=== PATIENT | male | born 1945 | race Caucasian/White ===

== ENCOUNTER 2020-11-18 20:10 | Inpatient (IN) | payer MEDICARE ==
--- NOTE | 2020-11-18 20:28 | ED ---
Arrhythmia/Palpitations HPI - General Chief Complaint: Arrhythmia/Palpitations Stated Complaint: AFib Time Seen by Provider: 11/18/20 20:11 Source: patient Mode of arrival: EMS Limitations: no limitations - History of Present Illness Initial Comments: This 75 rolled male presents emergency department for a true fibrillation with RVR from [facility]. The patient states he presented there because he was feeling hyperactive and felt very anxious throughout the day. He went to [facility] who found him to be in A. fib with RVR. EKG did show H of fibrillation with RVR without any ischemic changes. INR was noted to be low at 1.6. The patient was started on Cardizem. He was given a bolus of 10 mg and then started on 5 g/m. His heart rate greatly improved. Blood work was obtained as well and CBC was unremarkable. Electrolytes also appeared unremarkable. The patient states he's been compliant with his Coumadin and other medications. He currently denies any complaints. Specifically no chest pain or shortness of breath. Denies any caffeinated drinks or new medications. Home medications include digoxin and labwork it [facility] show that his digoxin level was low. - Related Data Allergies Allergy/AdvReac Type Severity Reaction Status Date / Time No Known Allergies Allergy Verified 11/18/20 20:17 Review of Systems ROS Statement: Those systems with pertinent positive or pertinent negative responses have been documented in the HPI. ROS Other: All systems not noted in ROS Statement are negative. Past Medical History Past Medical History: Atrial Fibrillation, Diabetes Mellitus History of Any Multi-Drug Resistant Organisms: None Reported Past Surgical History: Appendectomy Past Psychological History: Depression Smoking Status: Former smoker Past Alcohol Use History: None Reported Past Drug Use History: None Reported General Exam - General Exam Comments Initial Comments: Constitutional: Awake alert Appears comfortable Head: Normocephalic atraumatic Eyes: no conjunctival injection No scleral icterus EOMI Neck: No JVD Supple Heart: Irregularly irregular rhythm normal S1-S2 no murmurs Lungs: Clear to auscultation bilaterally No wheezing No rales Abdomen: Soft nondistended nontender Extremities: Non edematous DP pulses intact Radial pulses intact Neuro: A&Ox3 No focal neurologic deficits Psych: Appropriate mood and affect Limitations: no limitations Course Vital Signs 11/18/20 11/18/20 11/18/20 20:13 20:31 21:23 Temperature 98.2 F Pulse Rate 88 95 90 Respiratory 18 18 18 Rate Blood Pressure 172/99 144/88 138/68 O2 Sat by Pulse 96 98 97 Oximetry EKG Findings - EKG Comments: EKG Findings:: EKG showing atrial fibrillation with a rate of 104. There are no abnormal ST 7 changes or T-wave inversions. QTC is 431. Other intervals normal. There is multiple PVCs. Medical Decision Making - Medical Decision Making Is a 75 show any presents emergency department for atrial fibrillation with RVR. Patient had no complaints while here in the emergency department. The patient was maintained on Cardizem 5 and started on heparin for her subtherapeutic INR here the patient will be admitted for further monitoring. Dr. Packer accepts the admission. - Lab Data Lab Results 11/18/20 11/18/20 Range/Units 20:30 20:30 PT 16.1 H (9.0-12.0) sec INR 1.6 H (<1.2) APTT 27.8 (22.0-30.0) sec Troponin I <0.012 (0.000-0.034) ng/mL Disposition Clinical Impression: Atrial fibrillation with RVR Disposition: ADMITTED IP TO THIS HOSP Condition: Stable Referrals: Denny Truong MD [Primary Care Provider] - 1-2 days Decision to Admit Reason: Admit from EC
[2020-11-18] MEDS ORDERED: DILTIAZEM 125 MG in SODIUM CHLORIDE 0.9% 100 ML IV SCH (20:30)
[2020-11-18] MEDS: SODIUM CHLORIDE 0.9% 1,000 ML IV SCH (20:53)
[2020-11-18 20:59] LABS: INR 1.6 (<1.2); Partial Thromboplastin Time 27.8 sec (22.0-30.0); Prothrombin Time 16.1 sec (9.0-12.0)
[2020-11-18] MEDS ORDERED: HEPARIN SODIUM,PORCINE 5,000 UNIT/ML 1 ML VIAL IV ONE (21:02)
[2020-11-18] MEDS ORDERED: HEPARIN SODIUM,PORCINE 5,000 UNIT/ML 1 ML VIAL IV PRN (21:02)
[2020-11-18] MEDS ORDERED: HEPARIN SOD,PORK IN 0.45% NACL 25,000 UNIT in 0.45% NACL 1 250ML.BAG IV SCH (21:15)
[2020-11-18] MEDS ORDERED: NALOXONE 0.4 MG/ML 1 ML VIAL IV PRN (21:43)
[2020-11-18] MEDS: ZOLPIDEM 10 MG TAB PO PRN (23:40)
[2020-11-19 04:19] LABS: Basophils # (A) 0.1 k/uL (0-0.2); Basophils % (A) 1 %; Eosinophils # (A) 0.3 k/uL (0-0.7); Eosinophils % (A) 4 %; HCT 37.8 % (39.0-53.0); HGB 12.8 gm/dL (13.0-17.5); Lymphocytes # (A) 1.7 k/uL (1.0-4.8); Lymphocytes % (A) 20 %; MCH 32.2 pg (25.0-35.0); MCHC 33.9 g/dL (31.0-37.0); Mean Platelet Volume 7.4; Monocytes # (A) 0.6 k/uL (0-1.0); Monocytes % (A) 7 %; Neutrophils # (A) 5.4 k/uL (1.3-7.7); Neutrophils % (A) 66 %; Platelet Count 245 k/uL (150-450); RBC 3.98 m/uL (4.30-5.90); RDW 13.4 % (11.5-15.5); WBC 8.1 k/uL (3.8-10.6)
[2020-11-19 04:27] LABS: INR 1.6 (<1.2); Partial Thromboplastin Time 48.1 sec (22.0-30.0); Prothrombin Time 15.8 sec (9.0-12.0)
[2020-11-19 06:29] LABS: Glucose,Whole Blood 124 mg/dL (75-99)
[2020-11-19] MEDS ORDERED: ATORVASTATIN 20 MG TAB PO SCH (09:00)
[2020-11-19] MEDS: metFORMIN 500 MG TAB PO SCH ×2 (09:10→20:52)
[2020-11-19] MEDS: ATORVASTATIN 40 MG TAB PO SCH (09:11)
[2020-11-19] MEDS: FUROSEMIDE 40 MG TAB PO SCH (09:11)
[2020-11-19] MEDS: carvediloL 12.5 MG TAB PO SCH ×2 (09:11→17:26)
[2020-11-19] MEDS: LOSARTAN 50 MG TAB PO SCH (09:11)
[2020-11-19 09:18] LABS: African American GFR (CKD) >90 (>60 ml/min/1.73 sqM); Anion Gap 4 mmol/L; Blood Urea Nitrogen 16 mg/dL (9-20); Calcium 8.3 mg/dL (8.4-10.2); Carbon Dioxide 28 mmol/L (22-30); Chloride 105 mmol/L (98-107); Glucose 130 mg/dL (74-99); Magnesium 1.9 mg/dL (1.6-2.3); Non-African American GFR(CKD) 88 (>60 ml/min/1.73 sqM); Potassium 3.8 mmol/L (3.5-5.1); Sodium 137 mmol/L (137-145)
--- NOTE | 2020-11-19 09:25 | CONS ---
CONSULTATION Mr. Acosta is a 75-year-old male who was transferred yesterday from [facility] for further cardiac evaluation. The patient has a known history of chronic persistent atrial fibrillation who apparently felt anxious yesterday, went for walk, but continued to feel anxious. He is very vague about the symptoms. He denies any symptoms of chest discomfort. He denies any tightness in the chest. He denies any dizziness or palpitation. He had the atrial fibrillation in the past. He has history of chronic peripheral edema, but has not been taking his diuretic on a regular basis. He has no history of PND. No orthopnea. He denies any prior history of myocardial infarction. He has not been followed by Cardiology recently. He has no history of other cardiac issues according to him. His medications at home included Coumadin, iron, potassium, Glucophage 1 gram twice a day, Cozaar 50 mg daily, Lasix 40 mg daily, digoxin, Coreg 12.5 mg daily, and Lipitor 10 mg daily. Coronary risk factors are remarkable for hypertension, hyperlipidemia, and diabetes. He is a nonsmoker. REVIEW OF SYSTEMS: RESPIRATORY SYSTEM: He denies any recent wheezing or cough. He denies any history of obstructive lung disease. GI SYSTEM: No recent GI bleeding. No peptic ulcer disease. SYSTEM: No dysuria or hematuria. NERVOUS SYSTEM: No history of stroke or seizure. PHYSICAL EXAMINATION: A 75-year-old male, alert, oriented, in no apparent distress. Blood pressure 123/60 with the heart rate in 70s. Patient is on IV Cardizem. HEAD: Normocephalic. EYES: Sclerae anicteric. NECK: Good carotid upstroke. No bruit. No jugular venous distention. LUNGS: Clear to auscultation. HEART: Irregular, irregular. S1, S2. No S3. No rub with a systolic murmur at the base. No diastolic murmur. ABDOMEN: Soft, obese. Positive bowel sounds. No organomegaly. EXTREMITIES: +1 to 2 edema with chronic stasis. LAB DATA: Lab data revealed troponin of less than 0.012. INR 1.6. Hemoglobin 12.8. EKG revealed atrial fibrillation with rare PVCs, left axis deviation nonspecific ST-T wave changes, cannot exclude inferior wall myocardial infarction. IMPRESSION: 1. Episode of anxiety and feeling unsettled. No clear evidence to suggest congestive heart failure nor acute coronary syndrome. 2. Chronic persistent atrial fibrillation with episode of rapid ventricular response initially, subtherapeutic on anticoagulation. 3. History of hypertension. 4. Hyperlipidemia. 5. Diabetes mellitus. RECOMMENDATION: I will stop the IV heparin and IV Cardizem and that there is a beta thomas. I will stop the oral digoxin and I will switch him from warfarin to Xarelto if his insurance covers it for better control. I will obtain echocardiogram with Doppler. I will adjust the dose of his statin because of history of diabetes. Depending on the results of his echo and his response, further recommendation will be made. In the meantime, will continue the anticoagulation. The patient may require further cardiac workup as an outpatient. Depending on his progress, I will expect he should be able to be discharged home in the next 24 to 48 hours. Thank you for this consult. We will follow with you. MILKA / YULISAN: [id number] /
--- NOTE | 2020-11-19 11:00 | ECHOF ---
Referral Reason:afib MEASUREMENTS -------- HEIGHT: 177.8 cm WEIGHT: 128.4 kg BP: 123/65 RVIDd: 5.0 cm (< 3.3) IVSd: 1.4 cm (0.6 - 1.1) LVIDd: 5.1 cm (3.9 - 5.3) LVPWd: 1.5 cm (0.6 - 1.1) IVSs: 2.0 cm LVIDs: 3.3 cm LVPWs: 1.8 cm LAESV Index (A-L): 48.90 ml/m Ao Diam: 3.2 cm (2.0 - 3.7) AV Cusp: 2.1 cm (1.5 - 2.6) LA Diam: 5.4 cm (2.7 - 3.8) MV EXCURSION: 18.991 mm (> 18.000) MV EF SLOPE: 89 mm/s (70 - 150) EPSS: 1.3 cm AV maxP.99 mmHg AV meanP.70 mmHg RAP: 5.00 mmHg RVSP: 40.01 mmHg FINDINGS -------- This was a technically difficult study with suboptimal apical views. The left ventricular size is normal. There is moderate concentric left ventricular hypertrophy. O verall left ventricular systolic function is mildly impaired with, an EF between 45 - 50 %. The right ventricle is moderate to severely enlarged. LA is severely dilated >40 ml/m2 The right atrium is moderately enlarged. 5.0mg of Lumason was utilized for enhancement of images Interatrial and interventricular septum intact. There is no evidence of aortic regurgitation. There is mild aortic stenosis present. Peak/mean gr adient across the Aortic Valve is 16.99mmHg / 11.70mmHg. Jzgi-is-qpgyabag mitral regurgitation is present. Yrns-ki-qywuierp tricuspid regurgitation present. There is mild to moderate pulmonary hypertension. The right ventricular systolic pressure, as measured by Doppler, is 40.01mmHg. There is no pulmonic regurgitation present. The aortic root size is normal. IVC Not well visulized. There is no pericardial effusion. CONCLUSIONS -------- 1. The left ventricular size is normal. 2. There is moderate concentric left ventricular hypertrophy. 3. Overall left ventricular systolic function is mildly impaired with, an EF between 45 - 50 %. 4. The right ventricle is moderate to severely enlarged. 5. LA is severely dilated >40 ml/m2 6. The right atrium is moderately enlarged. 7. There is mild aortic stenosis present. 8. Peak/mean gradient across the Aortic Valve is 16.99mmHg / 11.70mmHg. 9. Sarh-zz-oazcqfzh mitral regurgitation is present. 10. Bsyw-gs-squymaej tricuspid regurgitation present. 11. There is mild to moderate pulmonary hypertension. 12. The right ventricular systolic pressure, as measured by Doppler, is 40.01mmHg. BIOLOGICAL TECHNICAL OFFICER: Candelaria Noe RDCS
[2020-11-19] MEDS: ALPRAZolam 0.25 MG TAB PO PRN ×2 (11:19→17:27)
[2020-11-19] MEDS: POTASSIUM CHLORIDE ER 20 MEQ TAB.ER PO SCH (11:19)
[2020-11-19 11:54] LABS: Glucose,Whole Blood 143 mg/dL (75-99)
[2020-11-19] MEDS: SODIUM CHLORIDE 0.9% 1,000 ML IV SCH ×2 (12:01→20:53)
--- NOTE | 2020-11-19 15:41 | XR ---
EXAMINATION TYPE: XR chest 2V DATE OF EXAM: 11/19/2020 COMPARISON: None HISTORY: 75 year-old male shortness of breath TECHNIQUE: PA and lateral views FINDINGS: The heart is mildly enlarged. Some strandy atelectasis in the lower lungs. No consolidation or pleura l effusion. IMPRESSION: Mild cardiomegaly. No acute cardiopulmonary process.
[2020-11-19 17:12] LABS: Glucose,Whole Blood 118 mg/dL (75-99)
[2020-11-19] MEDS ORDERED: carvediloL 12.5 MG TAB PO SCH (17:30)
[2020-11-19] MEDS ORDERED: RIVAROXABAN 20 MG TAB PO SCH (17:30)
[2020-11-19 20:16] LABS: Glucose,Whole Blood 151 mg/dL (75-99)
[2020-11-19] MEDS ORDERED: CYCLOBENZAPRINE 10 MG TAB PO PRN (20:24)
--- NOTE | 2020-11-19 21:04 | P.HPIM ---
History of Present Illness H&P Date: 11/19/20 Chief Complaint: Feeling hyperactive History of presenting complaint: This is a pleasant [address] Truong. Chronic stable medical conditions include hypertension, hyperlipidemia, diabetes type 2, insomnia. Patient also has known chronic persistent atrial fibrillation. Patient was transferred here from [facility]. Patient felt really hyperacti ve. Denied any dizziness any lightheadedness or palpitation. Did notice to be short of breath. No fever no chills. No cough had some edema. Found to be in rapid ventricular rate transferred here. Was started on IV heparin and IV Cardizem. Feeling better this morning. Review of systems: GEN.: Tired EYES: None HEENT: None NECK: None RESPIRATORY: As above CARDIOVASCULAR: None GASTROINTESTINAL: None GENITOURINARY: None MUSCULOSKELETAL: None LYMPHATICS: None HEMATOLOGICAL: None PSYCHIATRY: None NEUROLOGICAL: None Past medical history to include: Atrial fibrillation, insomnia, diabetes type 2, hypertension, hyperlipidemia Social history: . Does not smoke or drink alcohol. Past work including driving a forklift Family history: Reviewed, noncontributory to presentation Physical examination: VITAL SIGNS: 97.6, 80, 18, 116/67, 97% room air GENERAL: BMI 40.7, sitting up, not in distress. EYES: Pupils equal. Conjunctiva normal. HEENT: External appearance of nose and ears normal, oral cavity grossly normal. NECK: JVD not raised; masses not palpable. HEART: Heart sounds irregular, mild edema. LUNGS: Respiratory rate normal; clear to auscultation. ABDOMEN: Soft, nontender, liver spleen not palpable, no masses palpable. PSYCH: Alert and oriented x3; mood and affect normal. NEUROLOGICAL: Cranial nerves grossly intact; no facial asymmetry, power and sensation grossly intact. LYMPHATICS: No lymph nodes palpable in the axilla and neck INVESTIGATIONS, reviewed in the clinical context: White count 8.1 hemoglobin 12.8 platelets 245 INR 1.6 potassium 3.8 creatinine 0.77 LDL 29 TCH 1.9 EKG tracing personally reviewed by me-atrial flutter- fibrillation with PVCs 2-D echocardiogram-moderate concentric LVH, EF 45-50% right ventricle-moderate to severely enlarged. Zqlx-pr-yyfvaksy mitral and tricuspid regurgitation Chest x-ray film personally reviewed by me-cardiomegaly Assessment: -Chronic persistent atrial fibrillation with episode of possibly rapid v entricular rate. -Frequent PVCs -Essential hypertension -Hyperlipidemia -Diabetes mellitus type 2 on oral hypoglycemic -IV heparin monitoring Plan: Patient was initially on IV heparin and Cardizem. Patient being changed over to xarelto from warfarin. Beta blockers. Cardiology consulted. Discussed with the patient. Past Medical History Past Medical History: Atrial Fibrillation, Diabetes Mellitus History of Any Multi-Drug Resistant Organisms: None Reported Past Surgical History: Appendectomy Past Anesthesia/Blood Transfusion Reactions: No Reported Reaction Past Psychological History: Depression Smoking Status: Former smoker Past Alcohol Use History: None Reported Past Drug Use History: None Reported Medications and Allergies Home Medications Medication Instructions Recorded Confirmed Type Atorvastatin Calcium [Lipitor] 10 mg PO DAILY 11/18/20 11/18/20 History Cyclobenzaprine [Flexeril] 10 mg PO TID PRN 11/18/20 11/18/20 History Digoxin [Digitek] 125 mcg PO DAILY 11/18/20 11/18/20 History Ferrous Sulfate [Iron (65 MG 325 mg PO DAILY 11/18/20 11/18/20 History Elemental)] Furosemide [Lasix] 40 mg PO DAILY 11/18/20 11/18/20 History Losartan [Cozaar] 50 mg PO DAILY 11/18/20 11/18/20 History Magnesium Oxide 400 mg PO DAILY 11/18/20 11/18/20 History Multivitamins, Thera [Multivitamin 1 tab PO DAILY 11/18/20 11/18/20 History (formulary)] Potassium Chloride [Klor-Con 20] 20 meq PO DAILY 11/18/20 11/18/20 History Warfarin [Coumadin] 5 mg PO MOTUWETHFR 11/18/20 11/18/20 History Warfarin [Coumadin] 10 mg PO SUSA 11/18/20 11/18/20 History Zolpidem [Ambien] 10 mg PO HS PRN 11/18/20 11/18/20 History carvediloL [Coreg*] 12.5 mg PO DAILY 11/18/20 11/18/20 History metFORMIN HCL [Glucophage] 1,000 mg PO BID 11/18/20 11/18/20 History Rivaroxaban [Xarelto] 20 mg PO DAILY #30 tab 11/19/20 Rx Allergies Allergy/AdvReac Type Severity Reaction Status Date / Time No Known Allergies Allergy Verified 11/18/20 22:08 Physical Exam Vitals: Vital Signs Temp Pulse Pulse Resp BP BP Pulse Ox 11/19/20 03:35 70 18 123/65 95 11/19/20 02:00 90 18 11/19/20 00:00 98.6 F 90 18 139/84 97 11/18/20 22:41 98.6 F 90 18 139/84 97 11/18/20 21:23 90 18 138/68 97 11/18/20 20:31 95 18 144/88 98 11/18/20 20:13 98.2 F 88 18 172/99 96 Intake and Output 11/18/20 11/19/20 11/19/20 22:59 06:59 14:59 Intake Total 0 Output Total 200 Balance -200 0 Intake: Oral 0 Output: Urine 200 Other: Voiding Method Toilet # Voids 1 Weight 131.995 kg 128.7 kg Results CBC & Chem 7: 11/19/20 04:05 11/19/20 04:05 Labs: Abnormal Lab Results - Last 24 Hours (Table) 11/18/20 11/19/20 11/19/20 Range/Units 20:30 04:05 04:05 RBC 3.98 L (4.30-5.90) m/uL Hgb 12.8 L (13.0-17.5) gm/dL Hct 37.8 L (39.0-53.0) % PT 16.1 H 15.8 H (9.0-12.0) sec INR 1.6 H 1.6 H (<1.2) APTT 48.1 H (22.0-30.0) sec Glucose (74-99) mg/dL POC Glucose (mg/dL) (75-99) mg/dL Calcium (8.4-10.2) mg/dL 11/19/20 11/19/20 Range/Units 04:05 06:13 RBC (4.30-5.90) m/uL Hgb (13.0-17.5) gm/dL Hct (39.0-53.0) % PT (9.0-12.0) sec INR (<1.2) APTT (22.0-30.0) sec Glucose 130 H (74-99) mg/dL POC Glucose (mg/dL) 124 H (75-99) mg/dL Calcium 8.3 L (8.4-10.2) mg/dL Thrombosis Risk Factor Assmnt - Choose All That Apply Any of the Below Risk Factors Present?: Yes Other Risk Factors: Yes Each Risk Factor Represents 3 Points: Age 75 years or older Thrombosis Risk Factor Assessment Total Risk Factor Score: 3 Thrombosis Risk Factor Assessment Level: Moderate Risk
[2020-11-19] MEDS: ZOLPIDEM 10 MG TAB PO PRN (23:45)
[2020-11-20 05:35] VITALS: RESP 20
[2020-11-20 05:59] LABS: Glucose,Whole Blood 131 mg/dL (75-99)
[2020-11-20] MEDS: carvediloL 12.5 MG TAB PO SCH (06:08)
[2020-11-20 08:34] LABS: Basophils % (A) 0 %; Eosinophils # (A) 0.4 k/uL (0-0.7); Eosinophils % (A) 6 %; HCT 39.8 % (39.0-53.0); HGB 13.2 gm/dL (13.0-17.5); Lymphocytes # (A) 1.1 k/uL (1.0-4.8); Lymphocytes % (A) 17 %; MCH 31.4 pg (25.0-35.0); MCHC 33.1 g/dL (31.0-37.0); MCV 94.8 fL (80.0-100.0); Mean Platelet Volume 7.1; Monocytes # (A) 0.5 k/uL (0-1.0); Monocytes % (A) 7 %; Neutrophils # (A) 4.5 k/uL (1.3-7.7); Neutrophils % (A) 68 %; Platelet Count 239 k/uL (150-450); RDW 13.4 % (11.5-15.5); WBC 6.6 k/uL (3.8-10.6)
[2020-11-20 08:45] LABS: INR 1.5 (<1.2); Partial Thromboplastin Time 27.4 sec (22.0-30.0); Prothrombin Time 15.1 sec (9.0-12.0)
[2020-11-20] MEDS: LOSARTAN 50 MG TAB PO SCH (08:50)
[2020-11-20] MEDS: metFORMIN 500 MG TAB PO SCH (08:50)
[2020-11-20] MEDS: ATORVASTATIN 40 MG TAB PO SCH (08:50)
[2020-11-20] MEDS: POTASSIUM CHLORIDE ER 20 MEQ TAB.ER PO SCH (08:50)
[2020-11-20] MEDS: FUROSEMIDE 40 MG TAB PO SCH (08:50)
[2020-11-20 08:53] LABS: African American GFR (CKD) >90 (>60 ml/min/1.73 sqM); Anion Gap 3 mmol/L; Blood Urea Nitrogen 16 mg/dL (9-20); Calcium 8.7 mg/dL (8.4-10.2); Carbon Dioxide 31 mmol/L (22-30); Chloride 101 mmol/L (98-107); Glucose 155 mg/dL (74-99); Non-African American GFR(CKD) 87 (>60 ml/min/1.73 sqM); Potassium 4.1 mmol/L (3.5-5.1); Sodium 135 mmol/L (137-145)
--- NOTE | 2020-11-20 08:57 | PN ---
PROGRESS NOTE Mr. Acosta is a 75-year-old male with a history of chronic persistent atrial fibrillation who presented with symptoms of anxiety and had atrial fibrillation with rapid ventricular response. He is feeling much better today. His breathing is stable. He continued to be in atrial fibrillation with controlled ventricular response. He denies any dizziness or palpitation. No syncope. No PND. No orthopnea. He had an echocardiogram performed yesterday that showed an ejection fraction of 45% to 50% with no segmental wall motion abnormality with mild to moderate mitral and tricuspid regurgitation and mild aortic stenosis. He continues to be on Lipitor 40 mg daily, Coreg 12.5 mg twice a day, furosemide 40 mg daily, losartan 50 mg daily, metformin 1 gram twice a day, Xarelto 20 mg daily. PHYSICAL EXAMINATION: Blood pressure running in the 130s with the heart rate in the 70s. LUNGS: Clear. HEART: Irregular, irregular. S1, S2. No S3 with systolic murmur. No diastolic murmur. No rub. ABDOMEN: Soft, nontender. EXTREMITIES: With 1+ edema. IMPRESSION: 1. Atrial fibrillation with controlled ventricular response, anticoagulated. 2. History of hypertension. 3. Hyperlipidemia. 4. Diabetes mellitus. 5. Mild cardiomyopathy. RECOMMENDATION: From the cardiac standpoint, he should be able to be discharged home today and followed as an outpatient. He will continue on the Xarelto and his Coumadin has been stopped. MMODL / IJN: [id number] /
[2020-11-20] MEDS ORDERED: MULTIVITAMINS, THERA 1 EACH TAB PO SCH (09:00)
[2020-11-20] MEDS ORDERED: FERROUS SULFATE 325 MG TAB PO SCH (09:00)
[2020-11-20] MEDS ORDERED: MAGNESIUM OXIDE 400 MG TAB PO SCH (09:00)
[2020-11-20 10:03] VITALS: TEMP 97.4
[2020-11-20 12:01] LABS: Glucose,Whole Blood 125 mg/dL (75-99)
[2020-11-20 13:17] VITALS: BP 145/78; PULSE 87
--- NOTE | 2020-11-21 20:05 | P.DS ---
Providers Date of admission: 11/18/20 21:44 Expected date of discharge: 11/20/20 Attending physician: José Antonio Packer Consults: 11/18/20 23:30 Consult Physician Routine Consulting Provider: Shiraz Joyce Consult Reason/Comments: afib rvr Do you want consulting provider notified?: Yes, Notify in am Primary care physician: [facility] Course: Chief Complaint: Feeling hyperactive History of presenting complaint: This is a pleasant [address] Truong. Chronic stable medical conditions include hypertension, hyperlipidemia, diabetes type 2, insomnia. Patient also has known chronic persistent atrial fibrillation. Patient was transferred here from [facility]. Patient felt really hyperactive. Denied any dizziness any lightheadedness or palpitation. Did notice to be short of breath. No fever no chills. No cough had some edema. Found to be in rapid ventricular rate transferred here. Was started on IV heparin and IV Cardizem. Feeling better this morning.patient being changed to 2 xarelto. today-heart rate better controlled. No further symptoms. Discussed with the patient. Cleared by subwarehouse supervisor: Dr. Asher from cardiology Physical examination: VITAL SIGNS: 97.4, 73, 20, 1 23 x 81, 97% room air GENERAL: BMI 40.7, sitting up, not in distress. EYES: Pupils equal. Conjunctiva normal. NECK: JVD not raised; masses not palpable. HEART: Heart sounds irregular, mild edema. LUNGS: Respiratory rate normal; clear to auscultation. ABDOMEN: Soft, nontender, liver spleen not palpable, no masses palpable. PSYCH: Alert and oriented x3; mood and affect normal. INVESTIGATIONS, reviewed in the clinical context: November 20: White count 6.60 globin 13.2 potassium 4.1 creatinine 0.8 White count 8.1 hemoglobin 12.8 platelets 245 INR 1.6 potassium 3.8 creatinine 0.77 LDL 29 TCH 1.9 EKG tracing personally reviewed by me-atrial flutter- fibrillation with PVCs 2-D echocardiogram-moderate concentric LVH, EF 45-50% right ventricle-moderate to severely enlarged. Trcy-mx-gpldtwki mitral and tricuspid regurgitation Chest x-ray film personally reviewed by me-cardiomegaly Assessment: -Chronic persistent atrial fibrillation with episode of possibly rapid ventricular rate. -Frequent PVCs -Essential hypertension -Hyperlipidemia -Diabetes mellitus type 2 on oral hypoglycemic -IV heparin monitoring disposition: Home Patient Condition at Discharge: Stable Plan - Discharge Summary Discharge Rx Participant: No New Discharge Prescriptions: New Rivaroxaban [Xarelto] 20 mg PO DAILY #30 tab Continue Magnesium Oxide 400 mg PO DAILY Ferrous Sulfate [Iron (65 MG Elemental)] 325 mg PO DAILY Zolpidem [Ambien] 10 mg PO HS PRN PRN Reason: Insomnia Potassium Chloride [Klor-Con 20] 20 meq PO DAILY metFORMIN HCL [Glucophage] 1,000 mg PO BID Losartan [Cozaar] 50 mg PO DAILY Furosemide [Lasix] 40 mg PO DAILY Cyclobenzaprine [Flexeril] 10 mg PO TID PRN PRN Reason: Muscle Spasm Atorvastatin Calcium [Lipitor] 10 mg PO DAILY Multivitamins, Thera [Multivitamin (formulary)] 1 tab PO DAILY Changed carvediloL [Coreg*] 12.5 mg PO BID #60 tab Discontinued Warfarin [Coumadin] 10 mg PO SUSA Warfarin [Coumadin] 5 mg PO MOTUWETHFR Digoxin [Digitek] 125 mcg PO DAILY Discharge Medication List Atorvastatin Calcium [Lipitor] 10 mg PO DAILY 11/18/20 [History] Cyclobenzaprine [Flexeril] 10 mg PO TID PRN 11/18/20 [History] Ferrous Sulfate [Iron (65 MG Elemental)] 325 mg PO DAILY 11/18/20 [History] Furosemide [Lasix] 40 mg PO DAILY 11/18/20 [History] Losartan [Cozaar] 50 mg PO DAILY 11/18/20 [History] Magnesium Oxide 400 mg PO DAILY 11/18/20 [History] Multivitamins, Thera [Multivitamin (formulary)] 1 tab PO DAILY 11/18/20 [History] Potassium Chloride [Klor-Con 20] 20 meq PO DAILY 11/18/20 [History] Zolpidem [Ambien] 10 mg PO HS PRN 11/18/20 [History] metFORMIN HCL [Glucophage] 1,000 mg PO BID 11/18/20 [History] Rivaroxaban [Xarelto] 20 mg PO DAILY #30 tab 11/19/20 [Rx] carvediloL [Coreg*] 12.5 mg PO BID #60 tab 11/20/20 [Rx] Follow up Appointment(s)/Referral(s): Chapincito Asher MD [STAFF PHYSICIAN] - 2 Weeks Denny Truong MD [Primary Care Provider] - 1-2 days Patient Instructions/Handouts: A-fib (Atrial Fibrillation) (DC) Activity/Diet/Wound Care/Special Instructions: For information on patient assistance program/help from drug company for cost of Jarodto call [phone]. Discharge Disposition: HOME SELF-CARE
== END 2020-11-20 15:43 | disposition home or self-care (01) | DRG 309 ==
LOC: EC 20:10 → 3SCARD 21:44
PROVIDERS: ADMIT Hospitalist; ATTEND Hospitalist
DX: I48.19 Other persistent atrial fibrillation (principal); Z68.41 Body mass index [BMI] 40.0-44.9, adult; E78.5 Hyperlipidemia, unspecified; F32.9 Major depressive disorder, single episode, unspecified; E11.9 Type 2 diabetes mellitus without complications; F41.9 Anxiety disorder, unspecified; G47.00 Insomnia, unspecified; I10 Essential (primary) hypertension; I42.9 Cardiomyopathy, unspecified; R79.1 Abnormal coagulation profile; I49.3 Ventricular premature depolarization; E66.9 Obesity, unspecified; Z79.84 Long term (current) use of oral hypoglycemic drugs; Z79.01 Long term (current) use of anticoagulants; Z87.891 Personal history of nicotine dependence; Z79.899 Other long term (current) drug therapy; Z90.49 Acquired absence of other specified parts of digestive tract
CPT/HCPCS: 36415; 71046; 80048; 80061; 83735; 84443; 84484; 85025; 85610; 85730; 93005; 93306; 96365; 96368; 99285

== ENCOUNTER 2021-09-30 19:07 | Inpatient (IN) | payer MEDICARE ==
--- NOTE | 2021-09-30 20:15 | XR ---
EXAMINATION TYPE: XR chest 2V DATE OF EXAM: 09/30/2021 COMPARISON: 11/19/2020 HISTORY: Difficulty breathing TECHNIQUE: FINDINGS: There is no heart failure. There is some mild infiltrate and atelectasis left lung base beh ind the heart. Right lung is clear. There are no hilar masses. Bony thorax is intact. There is no hea rt failure. Heart size is borderline enlarged. IMPRESSION: There is a mild pneumonia in the left lower lobe which is mostly new compared to old exam .
[2021-09-30 20:33] LABS: Basophils % (A) 0 %; Eosinophils % (A) 0 %; HCT 37.3 % (39.0-53.0); HGB 12.4 gm/dL (13.0-17.5); Lymphocytes % (A) 8 %; MCH 31.1 pg (25.0-35.0); MCHC 33.4 g/dL (31.0-37.0); MCV 93.2 fL (80.0-100.0); Mean Platelet Volume 7.3; Monocytes % (A) 8 %; Neutrophils # (A) 10.3 k/uL (1.3-7.7); Neutrophils % (A) 82 %; Platelet Count 384 k/uL (150-450); RDW 13.3 % (11.5-15.5); WBC 12.5 k/uL (3.8-10.6)
[2021-09-30] MEDS ORDERED: IPRATROPIUM-ALBUTEROL 3 ML NEB INHALATION STA (20:40)
[2021-09-30 20:43] LABS: INR 1.3 (<1.2); Partial Thromboplastin Time 25.5 sec (22.0-30.0)
[2021-09-30] MEDS ORDERED: cefTRIAXone IN SWFI 1,000 MG/10 ML SYRINGE IVP STA (20:49)
--- NOTE | 2021-09-30 20:49 | ED ---
SOB HPI - General Chief Complaint: Shortness of Breath Stated Complaint: SOB Time Seen by Provider: 09/30/21 20:00 Source: patient, family, RN notes reviewed Mode of arrival: wheelchair Limitations: no limitations - History of Present Illness Initial Comments: 76-year-old male history of COPD who presents with complaints for the shortness of breath cough fevers chills sweats greenish phlegm starting today. Exertional dyspnea he does use an inhaler at home was not helping. He was seen at [facility] yesterday and diagnosed with a pneumonia he states his Covidtest was negative at that time. MD Complaint: shortness of breath, cough - Related Data Home Medications Medication Instructions Recorded Confirmed Atorvastatin Calcium [Lipitor] 10 mg PO DAILY 11/18/20 09/30/21 Cyclobenzaprine [Flexeril] 10 mg PO BID PRN 11/18/20 09/30/21 Ferrous Sulfate [Iron (65 MG 325 mg PO DAILY 11/18/20 09/30/21 Elemental)] Furosemide [Lasix] 40 mg PO DAILY 11/18/20 09/30/21 Losartan [Cozaar] 50 mg PO DAILY 11/18/20 09/30/21 Magnesium Oxide 400 mg PO DAILY 11/18/20 09/30/21 Multivitamins, Thera [Multivitamin 1 tab PO DAILY 11/18/20 09/30/21 (formulary)] Potassium Chloride [Klor-Con 20] 20 meq PO DAILY 11/18/20 09/30/21 Zolpidem [Ambien] 10 mg PO HS PRN 11/18/20 09/30/21 metFORMIN HCL [Glucophage] 1,000 mg PO BID 11/18/20 09/30/21 Rivaroxaban [Xarelto] 20 mg PO HS 09/30/21 09/30/21 predniSONE [Deltasone] 20 mg PO DIRECTED 09/30/21 09/30/21 Previous Rx's Medication Instructions Recorded carvediloL [Coreg*] 12.5 mg PO BID #60 tab 11/20/20 Allergies Allergy/AdvReac Type Severity Reaction Status Date / Time No Known Allergies Allergy Verified 09/30/21 22:09 Review of Systems ROS Statement: Those systems with pertinent positive or pertinent negative responses have been documented in the HPI. ROS Other: All systems not noted in ROS Statement are negative. Past Medical History Past Medical History: Atrial Fibrillation, Diabetes Mellitus History of Any Multi-Drug Resistant Organisms: None Reported Past Surgical History: Appendectomy Past Anesthesia/Blood Transfusion Reactions: No Reported Reaction Past Psychological History: Depression Smoking Status: Former smoker Past Alcohol Use History: None Reported Past Drug Use History: None Reported General Exam - General Exam Comments Initial Comments: This is a well-developed well-nourished awake alert oriented times 3 male Limitations: no limitations General appearance: alert, in no apparent distress Head exam: Present: atraumatic, normocephalic, normal inspection Eye exam: Present: normal appearance, PERRL, EOMI. Absent: scleral icterus, conjunctival injection, periorbital swelling ENT exam: Present: normal exam, mucous membranes moist Neck exam: Present: normal inspection. Absent: tenderness, meningismus, lymphadenopathy Respiratory exam: Present: wheezes, decreased breath sounds. Absent: respiratory distress, rales, rhonchi, stridor Cardiovascular Exam: Present: regular rate, normal rhythm, normal heart sounds. Absent: systolic murmur, diastolic murmur, rubs, gallop, clicks GI/Abdominal exam: Present: soft, normal bowel sounds. Absent: distended, tenderness, guarding, rebound, rigid Extremities exam: Present: normal inspection, full ROM, normal capillary refill. Absent: tenderness, pedal edema, joint swelling, calf tenderness Back exam: Present: normal inspection Neurological exam: Present: alert, oriented X3, CN II-XII intact Psychiatric exam: Present: normal affect, normal mood Skin exam: Present: warm, dry, intact, normal color. Absent: rash Course Vital Signs 09/30/21 09/30/21 09/30/21 19:45 21:00 21:09 Temperature 100.2 F H Pulse Rate 101 H 82 95 Respiratory 20 Rate Blood Pressure 142/77 O2 Sat by Pulse 94 L Oximetry Medical Decision Making - Medical Decision Making I did discuss findings the patient family as well as Dr. Packer patient does have evidence of left lower lobe pneumonia 2. Exacerbation of chronic A. fib he will be admitted place an IV antibiotics. - Lab Data Result diagrams: 09/30/21 19:59 09/30/21 19:59 Lab Results 09/30/21 09/30/21 09/30/21 Range/Units 19:59 19:59 19:59 WBC 12.5 H (3.8-10.6) k/uL RBC 4.00 L (4.30-5.90) m/uL Hgb 12.4 L (13.0-17.5) gm/dL Hct 37.3 L (39.0-53.0) % MCV 93.2 (80.0-100.0) fL MCH 31.1 (25.0-35.0) pg MCHC 33.4 (31.0-37.0) g/dL RDW 13.3 (11.5-15.5) % Plt Count 384 (150-450) k/uL MPV 7.3 Neutrophils % 82 % Lymphocytes % 8 % Monocytes % 8 % Eosinophils % 0 % Basophils % 0 % Neutrophils # 10.3 H (1.3-7.7) k/uL Lymphocytes # 1.0 (1.0-4.8) k/uL Monocytes # 1.0 (0-1.0) k/uL Eosinophils # 0.0 (0-0.7) k/uL Basophils # 0.0 (0-0.2) k/uL PT 13.0 H (9.0-12.0) sec INR 1.3 H (<1.2) APTT 25.5 (22.0-30.0) sec Sodium 132 L (137-145) mmol/L Potassium 4.3 (3.5-5.1) mmol/L Chloride 97 L (98-107) mmol/L Carbon Dioxide 25 (22-30) mmol/L Anion Gap 10 mmol/L BUN 21 H (9-20) mg/dL Creatinine 0.78 (0.66-1.25) mg/dL Est GFR (CKD-EPI)AfAm >90 (>60 ml/min/1.73 sqM) Est GFR (CKD-EPI)NonAf 87 (>60 ml/min/1.73 sqM) Glucose 140 H (74-99) mg/dL Plasma Lactic Acid Yg (0.7-2.0) mmol/L Calcium 9.1 (8.4-10.2) mg/dL Magnesium (1.6-2.3) mg/dL Total Bilirubin 0.8 (0.2-1.3) mg/dL AST 35 (17-59) U/L ALT 33 (4-49) U/L Alkaline Phosphatase 60 (38-126) U/L Troponin I (0.000-0.034) ng/mL NT-Pro-B Natriuret Pep pg/mL Total Protein 6.6 (6.3-8.2) g/dL Albumin 3.5 (3.5-5.0) g/dL Coronavirus (PCR) (Not Detectd) 09/30/21 09/30/21 09/30/21 Range/Units 19:59 19:59 19:59 WBC (3.8-10.6) k/uL RBC (4.30-5.90) m/uL Hgb (13.0-17.5) gm/dL Hct (39.0-53.0) % MCV (80.0-100.0) fL MCH (25.0-35.0) pg MCHC (31.0-37.0) g/dL RDW (11.5-15.5) % Plt Count (150-450) k/uL MPV Neutrophils % % Lymphocytes % % Monocytes % % Eosinophils % % Basophils % % Neutrophils # (1.3-7.7) k/uL Lymphocytes # (1.0-4.8) k/uL Monocytes # (0-1.0) k/uL Eosinophils # (0-0.7) k/uL Basophils # (0-0.2) k/uL PT (9.0-12.0) sec INR (<1.2) APTT (22.0-30.0) sec Sodium (137-145) mmol/L Potassium (3.5-5.1) mmol/L Chloride (98-107) mmol/L Carbon Dioxide (22-30) mmol/L Anion Gap mmol/L BUN (9-20) mg/dL Creatinine (0.66-1.25) mg/dL Est GFR (CKD-EPI)AfAm (>60 ml/min/1.73 sqM) Est GFR (CKD-EPI)NonAf (>60 ml/min/1.73 sqM) Glucose (74-99) mg/dL Plasma Lactic Acid Yg 1.5 (0.7-2.0) mmol/L Calcium (8.4-10.2) mg/dL Magnesium (1.6-2.3) mg/dL Total Bilirubin (0.2-1.3) mg/dL AST (17-59) U/L ALT (4-49) U/L Alkaline Phosphatase (38-126) U/L Troponin I <0.012 (0.000-0.034) ng/mL NT-Pro-B Natriuret Pep 461 pg/mL Total Protein (6.3-8.2) g/dL Albumin (3.5-5.0) g/dL Coronavirus (PCR) (Not Detectd) 09/30/21 09/30/21 Range/Units 19:59 21:03 WBC (3.8-10.6) k/uL RBC (4.30-5.90) m/uL Hgb (13.0-17.5) gm/dL Hct (39.0-53.0) % MCV (80.0-100.0) fL MCH (25.0-35.0) pg MCHC (31.0-37.0) g/dL RDW (11.5-15.5) % Plt Count (150-450) k/uL MPV Neutrophils % % Lymphocytes % % Monocytes % % Eosinophils % % Basophils % % Neutrophils # (1.3-7.7) k/uL Lymphocytes # (1.0-4.8) k/uL Monocytes # (0-1.0) k/uL Eosinophils # (0-0.7) k/uL Basophils # (0-0.2) k/uL PT (9.0-12.0) sec INR (<1.2) APTT (22.0-30.0) sec Sodium (137-145) mmol/L Potassium (3.5-5.1) mmol/L Chloride (98-107) mmol/L Carbon Dioxide (22-30) mmol/L Anion Gap mmol/L BUN (9-20) mg/dL Creatinine (0.66-1.25) mg/dL Est GFR (CKD-EPI)AfAm (>60 ml/min/1.73 sqM) Est GFR (CKD-EPI)NonAf (>60 ml/min/1.73 sqM) Glucose (74-99) mg/dL Plasma Lactic Acid Yg (0.7-2.0) mmol/L Calcium (8.4-10.2) mg/dL Magnesium 1.4 L (1.6-2.3) mg/dL Total Bilirubin (0.2-1.3) mg/dL AST (17-59) U/L ALT (4-49) U/L Alkaline Phosphatase (38-126) U/L Troponin I (0.000-0.034) ng/mL NT-Pro-B Natriuret Pep pg/mL Total Protein (6.3-8.2) g/dL Albumin (3.5-5.0) g/dL Coronavirus (PCR) Not Detected (Not Detectd) - EKG Data -: EKG Interpreted by Me EKG Comments: Atrial fibrillation rate 125 QRS 100 QT since QTC 326/470 atrial fibrillation with a right word axis. - Radiology Data Radiology results: report reviewed (Imaging reviewed evidence a left lower lobe infiltrate.), image reviewed Critical Care Time Critical Care Time: Yes Total Critical Care Time: 32 Critical Care Time: Critical care time includes initial presentation with history physical labs x- rays multiple reevaluation the patient discussed with patient regarding the findings with his the history of old charting available discussed with the main physician admission orders neck mentation the above Disposition Clinical Impression: Left lower lobe pneumonia, Acute exacerbation of chronic obstructive pulmonary disease, Febrile illness, acute, Dehydration, Failure of outpatient treatment, Atrial fibrillation with RVR, Hypomagnesemia Disposition: ADMITTED IP TO THIS HOSP Condition: Fair Referrals: Denny Truong MD [Primary Care Provider] - 1-2 days
[2021-09-30 20:51] LABS: ALT 33 U/L (4-49); AST 35 U/L (17-59); African American GFR (CKD) >90 (>60 ml/min/1.73 sqM); Albumin 3.5 g/dL (3.5-5.0); Alkaline Phosphatase 60 U/L (38-126); Anion Gap 10 mmol/L; Blood Urea Nitrogen 21 mg/dL (9-20); Calcium 9.1 mg/dL (8.4-10.2); Carbon Dioxide 25 mmol/L (22-30); Chloride 97 mmol/L (98-107); Glucose 140 mg/dL (74-99); Non-African American GFR(CKD) 87 (>60 ml/min/1.73 sqM); Potassium 4.3 mmol/L (3.5-5.1); Sodium 132 mmol/L (137-145); Total Bilirubin 0.8 mg/dL (0.2-1.3); Total Protein 6.6 g/dL (6.3-8.2)
[2021-09-30] MEDS ORDERED: AZITHROMYCIN 500 MG in SODIUM CHLORIDE 0.9% 250 ML IVPB STA (22:18)
[2021-09-30] MEDS ORDERED: PNEUMONIA PROTOCOL UTILIZED 1 EACH MISC PO PRN (22:43)
[2021-09-30] MEDS ORDERED: ZOLPIDEM 10 MG TAB PO PRN (22:45)
[2021-09-30] MEDS ORDERED: CYCLOBENZAPRINE 10 MG TAB PO PRN (22:45)
[2021-09-30] MEDS: IPRATROPIUM-ALBUTEROL 3 ML NEB INHALATION SCH (23:45)
[2021-10-01] MEDS: MAGNESIUM SULFATE-D5W PMX 1 GM in DEXTROSE/WATER 1 100ML.BAG IVPB SCH ×2 (00:55→02:17)
[2021-10-01] MEDS: methylPREDNISolone SOD SUCCI 125 MG/2 ML VIAL IV SCH ×3 (01:01→18:54)
[2021-10-01] MEDS: SODIUM CHLORIDE 0.9% 1,000 ML IV SCH ×4 (01:01→21:55)
[2021-10-01] MEDS: IPRATROPIUM-ALBUTEROL 3 ML NEB INHALATION SCH ×6 (03:32→23:14)
--- NOTE | 2021-10-01 07:09 | XR ---
EXAMINATION TYPE: XR chest 2V DATE OF EXAM: 10/01/2021 COMPARISON: Chest x-ray from yesterday. Older x-ray November 19, 2020 HISTORY: Pneumonia. TECHNIQUE: Frontal and lateral views of the chest are obtained. FINDINGS: Left basilar opacity redemonstrated. Right lung remains clear. No pleural effusion or pneu mothorax seen bilaterally. Stable cardiomegaly. The osseous structures are intact. IMPRESSION: Cardiomegaly with left basilar acute infiltrate and/or atelectasis. No significant cadena e from one day earlier.
[2021-10-01] MEDS: ATORVASTATIN 10 MG TAB PO SCH (08:11)
[2021-10-01] MEDS: AZITHROMYCIN 500 MG TAB PO SCH (08:11)
[2021-10-01] MEDS: FERROUS SULFATE 325 MG TAB PO SCH (08:12)
[2021-10-01] MEDS: carvediloL 12.5 MG TAB PO SCH ×2 (08:12→21:55)
[2021-10-01] MEDS: LOSARTAN 50 MG TAB PO SCH (08:13)
[2021-10-01] MEDS: MAGNESIUM OXIDE 400 MG TAB PO SCH (08:13)
[2021-10-01] MEDS: POTASSIUM CHLORIDE ER 20 MEQ TAB.ER PO SCH (08:13)
[2021-10-01] MEDS: metFORMIN 500 MG TAB PO SCH ×2 (08:14→21:55)
[2021-10-01] MEDS ORDERED: ALPRAZolam 0.25 MG TAB PO PRN (12:49)
[2021-10-01] MEDS ORDERED: MAGNESIUM HYDROXIDE 2,400 MG/10 ML CUP PO PRN (12:49)
[2021-10-01] MEDS ORDERED: MAG HYDROX/AL HYDROX/SIMETH 30 ML CUP PO PRN (12:49)
[2021-10-01] MEDS ORDERED: NALOXONE 0.4 MG/ML 1 ML VIAL IV PRN (12:49)
[2021-10-01] MEDS ORDERED: ONDANSETRON 4 MG/2 ML VIAL IVP PRN (12:49)
[2021-10-01] MEDS ORDERED: LACTULOSE 20 GM/30 ML CUP PO PRN (12:49)
[2021-10-01] MEDS ORDERED: ACETAMINOPHEN TAB 325 MG TAB PO PRN (12:49)
[2021-10-01] MEDS ORDERED: CALCIUM CARBONATE 500 MG CHEWABLE PO PRN (12:49)
[2021-10-01] MEDS: MULTIVITAMINS, THERA 1 EACH TAB PO SCH (13:11)
[2021-10-01] MEDS: FUROSEMIDE 40 MG TAB PO SCH (13:11)
[2021-10-01] MEDS: methylPREDNISolone SOD SUCCI 40 MG/ML 1 ML VIAL IV SCH (13:12)
--- NOTE | 2021-10-01 17:17 | P.HPIM ---
History of Present Illness H&P Date: 10/01/21 Chief Complaint: Short of breath History of presenting complaint: This is a pleasant [address] Truong. Chronic stable medical conditions include hypertension, hyperlipidemia, diabetes type 2, insomnia,chronic persistent atrial fibrillation. Patient presents to the ER he thinks is progressively getting more and more short of breath for last 3 months. Symptoms become more pronounced recently. About 3-4 days ago he was at [facility]. Was sent over the diagnoses of bronchitis given some antibiotics. Patient having significant amount of coughing. Very little phlegm. He's had some low-grade fever. No change in bowel pattern. is present with him. He has received vaccine against COVID. Patient stopped smoking 40 years ago. Since receiving bronchodilators in the ER he is feeling better. Also been having wheezing. Review of systems: GEN.: Tired EYES: None HEENT: None NECK: None RESPIRATORY: As above CARDIOVASCULAR: None GASTROINTESTINAL: None GENITOURINARY: None MUSCULOSKELETAL: None LYMPHATICS: None HEMATOLOGICAL: None PSYCHIATRY: None NEUROLOGICAL: None Past medical history to include: Atrial fibrillation, insomnia, diabetes type 2, hypertension, hyperlipidemia Social history: . Patient smoked up to 3 packs a day for about 25 years stopped about 40 years ago.. Past work including driving a forklift Family history: Reviewed, noncontributory to presentation Physical examination: VITAL SIGNS: 100.2, 101, 20, 142.77, 94% on room air GENERAL: BMI 39.2, sitting up in a chair, not in distress EYES: Pupils equal. Conjunctiva normal. HEENT: External appearance of nose and ears normal, oral cavity grossly normal. NECK: JVD not raised; masses not palpable. HEART: Heart sounds irregular, mild edema. LUNGS: Respiratory rate increased, decreased breaths on extremity wheezing ABDOMEN: Soft, nontender, liver spleen not palpable, no masses palpable. PSYCH: Alert and oriented x3; mood and affect normal. NEUROLOGICAL: Cranial nerves grossly intact; no facial asymmetry, power and sensation grossly intact. LYMPHATICS: No lymph nodes palpable in the axilla and neck INVESTIGATIONS, reviewed in the clinical context: White count 12.5 hemoglobin 12.4 platelets 384 2132 potassium 4.3 BUN 21-0.78 Troponin I less than 0.012, proBNP 461 Coronavirus, influenza type A type B: All negative EKG tracing personally reviewed by me-atrial fibrillation, rate 125 Chest x-ray film personally reviewed by me-possible left basilar infiltrate Previous testing 2-D echocardiogram [November 2020]-moderate concentric LVH, EF 45-50% right ventricle-moderate to severely enlarged. [id number] mitral and tricuspid regurgitation Assessment and plan: -Left lower lobe pneumonia suspected gram-negative organism IV ceftriaxone. Zithromax. -Acute COPD exacerbation in a ex-smoker IV Solu-Medrol 40 mg every 8. DuoNeb. Inhaled steroids. -Chronic persistent atrial fibrillation uncontrolled ventricular rate Coreg 12.5 by mouth twice a day. Xarelto 20 mg daily at bedtime -Essential hypertension Coreg 12.5 mg by mouth twice a day Cozaar 50 mg daily -Hyperlipidemia Lipitor 10 mg daily -Diabetes mellitus type 2 on oral hypoglycemic Glucophage thousand milligrams twice a day DuoNeb. Inhaled Pulmicort. IV Solu-Medrol. Follow Accu-Cheks. Resume home medications. Telemetry. Consult cardiology. Care was discussed with the patient and questions answered. Given the complexity and severity of patient's condition expect the patient to be in the hospital at least for 2 overnights Past Medical History Past Medical History: Atrial Fibrillation, Diabetes Mellitus History of Any Multi-Drug Resistant Organisms: None Reported Past Surgical History: Appendectomy Past Anesthesia/Blood Transfusion Reactions: No Reported Reaction Past Psychological History: Depression Smoking Status: Former smoker Past Alcohol Use History: None Reported Past Drug Use History: None Reported Medications and Allergies Home Medications Medication Instructions Recorded Confirmed Type Atorvastatin Calcium [Lipitor] 10 mg PO DAILY 11/18/20 09/30/21 History Cyclobenzaprine [Flexeril] 10 mg PO BID PRN 11/18/20 09/30/21 History Ferrous Sulfate [Iron (65 MG 325 mg PO DAILY 11/18/20 09/30/21 History Elemental)] Furosemide [Lasix] 40 mg PO DAILY 11/18/20 09/30/21 History Losartan [Cozaar] 50 mg PO DAILY 11/18/20 09/30/21 History Magnesium Oxide 400 mg PO DAILY 11/18/20 09/30/21 History Multivitamins, Thera [Multivitamin 1 tab PO DAILY 11/18/20 09/30/21 History (formulary)] Potassium Chloride [Klor-Con 20] 20 meq PO DAILY 11/18/20 09/30/21 History Zolpidem [Ambien] 10 mg PO HS PRN 11/18/20 09/30/21 History metFORMIN HCL [Glucophage] 1,000 mg PO BID 11/18/20 09/30/21 History carvediloL [Coreg*] 12.5 mg PO BID #60 tab 11/20/20 09/30/21 Rx Rivaroxaban [Xarelto] 20 mg PO HS 09/30/21 09/30/21 History predniSONE [Deltasone] 40 mg PO DAILY 09/30/21 10/01/21 History Allergies Allergy/AdvReac Type Severity Reaction Status Date / Time No Known Allergies Allergy Verified 09/30/21 22:09 Physical Exam Vitals: Vital Signs Temp Pulse Resp BP Pulse Ox 10/01/21 07:43 110 H 10/01/21 07:35 102 H 10/01/21 05:12 105 H 24 95 10/01/21 03:45 101 H 10/01/21 03:32 112 H 10/01/21 01:32 98 22 125/84 95 09/30/21 23:54 107 H 09/30/21 23:45 101 H 09/30/21 21:09 95 09/30/21 21:00 82 09/30/21 19:45 100.2 F H 101 H 20 142/77 94 L Intake and Output 09/30/21 10/01/21 10/01/21 22:59 06:59 14:59 Other: Weight 127.459 kg Results CBC & Chem 7: 09/30/21 19:59 09/30/21 19:59 Labs: Abnormal Lab Results - Last 24 Hours (Table) 09/30/21 09/30/21 09/30/21 Range/Units 19:59 19:59 19:59 WBC 12.5 H (3.8-10.6) k/uL RBC 4.00 L (4.30-5.90) m/uL Hgb 12.4 L (13.0-17.5) gm/dL Hct 37.3 L (39.0-53.0) % Neutrophils # 10.3 H (1.3-7.7) k/uL PT 13.0 H (9.0-12.0) sec INR 1.3 H (<1.2) Sodium 132 L (137-145) mmol/L Chloride 97 L (98-107) mmol/L BUN 21 H (9-20) mg/dL Glucose 140 H (74-99) mg/dL Magnesium (1.6-2.3) mg/dL 09/30/21 Range/Units 19:59 WBC (3.8-10.6) k/uL RBC (4.30-5.90) m/uL Hgb (13.0-17.5) gm/dL Hct (39.0-53.0) % Neutrophils # (1.3-7.7) k/uL PT (9.0-12.0) sec INR (<1.2) Sodium (137-145) mmol/L Chloride (98-107) mmol/L BUN (9-20) mg/dL Glucose (74-99) mg/dL Magnesium 1.4 L (1.6-2.3) mg/dL
[2021-10-01] MEDS: INSULIN ASPART (NovoLOG) 100 UNIT/ML VIAL SQ SCH ×2 (18:53→21:56)
[2021-10-01 19:42] LABS: Glucose,Whole Blood 214 mg/dL (75-99)
[2021-10-01] MEDS: BUDESONIDE 1 MG/2 ML NEBU INHALATION SCH (20:52)
[2021-10-01] MEDS: RIVAROXABAN 20 MG TAB PO SCH (21:55)
[2021-10-01] MEDS ORDERED: ZOLPIDEM 5 MG TAB PO PRN (23:42)
[2021-10-02] MEDS: methylPREDNISolone SOD SUCCI 40 MG/ML 1 ML VIAL IV SCH ×4 (00:02→22:50)
[2021-10-02] MEDS: IPRATROPIUM-ALBUTEROL 3 ML NEB INHALATION SCH ×5 (04:27→19:25)
[2021-10-02 05:54] LABS: Glucose,Whole Blood 171 mg/dL (75-99)
[2021-10-02] MEDS: INSULIN ASPART (NovoLOG) 100 UNIT/ML VIAL SQ SCH ×4 (06:37→19:51)
[2021-10-02] MEDS: BUDESONIDE 1 MG/2 ML NEBU INHALATION SCH ×2 (08:36→19:25)
[2021-10-02] MEDS: metFORMIN 500 MG TAB PO SCH ×2 (08:39→19:51)
[2021-10-02] MEDS: MAGNESIUM OXIDE 400 MG TAB PO SCH (08:40)
[2021-10-02] MEDS: FERROUS SULFATE 325 MG TAB PO SCH (08:40)
[2021-10-02] MEDS: FUROSEMIDE 40 MG TAB PO SCH (08:40)
[2021-10-02] MEDS: LOSARTAN 50 MG TAB PO SCH (08:40)
[2021-10-02] MEDS: MULTIVITAMINS, THERA 1 EACH TAB PO SCH (08:40)
[2021-10-02] MEDS: ATORVASTATIN 10 MG TAB PO SCH (08:40)
[2021-10-02] MEDS: POTASSIUM CHLORIDE ER 20 MEQ TAB.ER PO SCH (08:40)
[2021-10-02] MEDS: carvediloL 12.5 MG TAB PO SCH ×2 (08:40→19:51)
[2021-10-02] MEDS: AZITHROMYCIN 500 MG TAB PO SCH (08:40)
[2021-10-02 11:48] LABS: Glucose,Whole Blood 239 mg/dL (75-99)
--- NOTE | 2021-10-02 12:30 | P.PN ---
Progress Note - Text Progress Note Date: 10/02/21 Chief Complaint: Short of breath History of presenting complaint: This is a pleasant [address] Truong. Chronic stable medical conditions include hypertension, hyperlipidemia, diabetes type 2, insomnia,chronic persistent atrial fibrillation. Patient presents to the ER he thinks is progressively getting more and more short of breath for last 3 months. Symptoms become more pronounced recently. About 3-4 days ago he was at [facility]. Was sent over the diagnoses of bronchitis given some antibiotics. Patient having significant amount of coughing. Very little phlegm. He's had some low-grade fever. No change in bowel pattern. is present with him. He has received vaccine against COVID. Patient stopped smoking 40 years ago. Since receiving bronchodilators in the ER he is feeling better. Also been having wheezing. Admitted with pneumonia, COPD exacerbation, atrial fibrillation uncontrolled. Started IV ceftriaxone, IV Solu-Medrol, bronchodilators. October 02: Sitting up in a recliner. Cough and breathing some improvement. Oral intake good. Looks like cold liquids has been precipitating his cough. No phlegm. Review of systems: Was done for constitutional, cardiovascular, GI, pulmonary. relevant finding as above Active Medications Acetaminophen (Acetaminophen Tab 325 Mg Tab) 650 mg PO Q6HR PRN PRN Reason: Mild Pain or Fever > 100.5 Al Hydroxide/Mg Hydroxide (Mag Hydrox/Al Hydrox/Simeth 30 Ml Cup) 15 ml PO Q6HR PRN PRN Reason: Indigestion Albuterol/Ipratropium (Ipratropium-Albuterol 3 Ml Neb) 3 ml INHALATION RT-Q4H [facility] Last Admin: 10/02/21 12:02 Dose: 3 ml Documented by: Alprazolam (Alprazolam 0.25 Mg Tab) 0.25 mg PO Q6HR PRN PRN Reason: Anxiety Atorvastatin Calcium (Atorvastatin 10 Mg Tab) 10 mg PO DAILY [facility] Last Admin: 10/02/21 08:40 Dose: 10 mg Documented by: Budesonide (Budesonide 1 Mg/2 Ml Nebu) 1 mg INHALATION RT-BID [facility] Last Admin: 10/02/21 08:36 Dose: 1 mg Documented by: Calcium Carbonate/Glycine (Calcium Carbonate 500 Mg Chewable) 1,000 mg PO Q4HR PRN PRN Reason: Dyspepsia Carvedilol (Carvedilol 12.5 Mg Tab) 12.5 mg PO BID [facility] Last Admin: 10/02/21 08:40 Dose: 12.5 mg Documented by: Cyclobenzaprine HCl (Cyclobenzaprine 10 Mg Tab) 10 mg PO BID PRN PRN Reason: Muscle Spasm Ferrous Sulfate (Ferrous Sulfate 325 Mg Tab) 325 mg PO DAILY [facility] Last Admin: 10/02/21 08:40 Dose: 325 mg Documented by: Furosemide (Furosemide 40 Mg Tab) 40 mg PO DAILY [facility] Last Admin: 10/02/21 08:40 Dose: 40 mg Documented by: Ceftriaxone Sodium 2 gm/ (Sodium Chloride) 50 mls @ 100 mls/hr IVPB Q24H [facility] Stop: 10/04/21 21:29 Last Admin: 10/01/21 21:55 Dose: 100 mls/hr Documented by: Insulin Aspart (Insulin Aspart (Novolog) 100 Unit/Ml Vial) 0 unit SQ ACHS [facility]; Protocol Last Admin: 10/02/21 06:37 Dose: 4 unit Documented by: Lactulose (Lactulose 20 Gm/30 Ml Cup) 20 gm PO DAILY PRN PRN Reason: Constipation Losartan Potassium (Losartan 50 Mg Tab) 50 mg PO DAILY [facility] Last Admin: 10/02/21 08:40 Dose: 50 mg Documented by: Magnesium Hydroxide (Magnesium Hydroxide 2,400 Mg/10 Ml Cup) 2,400 mg PO DAILY PRN PRN Reason: Constipation Magnesium Oxide (Magnesium Oxide 400 Mg Tab) 400 mg PO DAILY [facility] Last Admin: 10/02/21 08:40 Dose: 400 mg Documented by: Metformin HCl (Metformin 500 Mg Tab) 1,000 mg PO BID [facility] Last Admin: 10/02/21 08:39 Dose: 1,000 mg Documented by: Methylprednisolone Sodium Succinate (Methylprednisolone Sod Succi 40 Mg/Ml 1 Ml Vial) 40 mg IV Q8HR [facility] Last Admin: 10/02/21 08:40 Dose: 40 mg Documented by: Miscellaneous Information (Pneumonia Protocol Utilized 1 Each Misc) 1 each PO ONCE PRN PRN Reason: Per Protocol Multivitamins (Multivitamins, Thera 1 Each Tab) 1 each PO DAILY [facility] Last Admin: 10/02/21 08:40 Dose: 1 each Documented by: Naloxone HCl (Naloxone 0.4 Mg/Ml 1 Ml Vial) 0.2 mg IV Q2M PRN PRN Reason: Opioid Reversal Ondansetron HCl (Ondansetron 4 Mg/2 Ml Vial) 4 mg IVP Q8HR PRN PRN Reason: Nausea And Vomiting Potassium Chloride (Potassium Chloride Er 20 Meq Tab.Er) 20 meq PO DAILY [facility] Last Admin: 10/02/21 08:40 Dose: 20 meq Documented by: Rivaroxaban (Rivaroxaban 20 Mg Tab) 20 mg PO HS [facility]; Protocol Last Admin: 10/01/21 21:55 Dose: 20 mg Documented by: Zolpidem Tartrate (Zolpidem 5 Mg Tab) 10 mg PO HS PRN PRN Reason: Insomnia Last Admin: 10/02/21 00:02 Dose: 10 mg Documented by: Past medical history to include: Atrial fibrillation, insomnia, diabetes type 2, hypertension, hyperlipidemia Social history: . Patient smoked up to 3 packs a day for about 25 years stopped about 40 years ago.. Past work including driving a forklift Family history: Reviewed, noncontributory to presentation Physical examination: VITAL SIGNS: 98, 79, 18, 125-72, 95% room air GENERAL: Sitting up in a recliner, looking better EYES: Pupils equal. Conjunctiva normal. HEENT: External appearance of nose and ears normal, oral cavity grossly normal. NECK: JVD not raised; masses not palpable. HEART: Heart sounds irregular, mild edema. LUNGS: Respiratory rate increased, decreased breaths, mild wheezing ABDOMEN: Soft, nontender, liver spleen not palpable, no masses palpable. PSYCH: Alert and oriented x3; mood and affect normal. INVESTIGATIONS, reviewed in the clinical context: Pro-calcitonin 0.08 White count 12.5 hemoglobin 12.4 platelets 384 2132 potassium 4.3 BUN 21-0.78 Troponin I less than 0.012, proBNP 461 Coronavirus, influenza type A type B: All negative EKG tracing personally reviewed by me-atrial fibrillation, rate 125 Chest x-ray film personally reviewed by me-possible left basilar infiltrate Previous testing 2-D echocardiogram [November 2020]-moderate concentric LVH, EF 45-50% right ventricle-moderate to severely enlarged. [id number] mitral and tricuspid regurgitation Assessment and plan: -Left lower lobe pneumonia suspected gram-negative organism: Improving IV ceftriaxone. Zithromax. -Acute COPD exacerbation in a ex-smoker: Improving IV Solu-Medrol 40 mg every 8. DuoNeb. Inhaled steroids. -Chronic persistent atrial fibrillation uncontrolled ventricular rate: Better Coreg 12.5 by mouth twice a day. Xarelto 20 mg daily at bedtime -Essential hypertension Coreg 12.5 mg by mouth twice a day Cozaar 50 mg daily -Hyperlipidemia Lipitor 10 mg daily -Diabetes mellitus type 2 on oral hypoglycemic: Uncontrolled with hyperglycemia secondary to steroids Glucophage thousand milligrams twice a day. Sliding insulin DuoNeb. Inhaled Pulmicort. IV Solu-Medrol. Follow Accu-Cheks. Discussed with patient and . Increase activity.
[2021-10-02 17:00] LABS: Glucose,Whole Blood 112 mg/dL (75-99)
[2021-10-02 19:42] LABS: Glucose,Whole Blood 145 mg/dL (75-99)
[2021-10-02] MEDS: RIVAROXABAN 20 MG TAB PO SCH (19:50)
[2021-10-02] MEDS ORDERED: ZOLPIDEM 5 MG TAB PO SCH (21:00)
[2021-10-03] MEDS: IPRATROPIUM-ALBUTEROL 3 ML NEB INHALATION SCH ×4 (00:20→12:10)
[2021-10-03 06:04] LABS: Glucose,Whole Blood 157 mg/dL (75-99)
[2021-10-03] MEDS: INSULIN ASPART (NovoLOG) 100 UNIT/ML VIAL SQ SCH ×2 (06:12→12:03)
[2021-10-03 07:45] LABS: African American GFR (CKD) >90 (>60 ml/min/1.73 sqM); Anion Gap 10 mmol/L; Blood Urea Nitrogen 28 mg/dL (9-20); Calcium 9.7 mg/dL (8.4-10.2); Carbon Dioxide 28 mmol/L (22-30); Chloride 97 mmol/L (98-107); Glucose 154 mg/dL (74-99); Non-African American GFR(CKD) 81 (>60 ml/min/1.73 sqM); Potassium 4.9 mmol/L (3.5-5.1); Sodium 135 mmol/L (137-145)
[2021-10-03] MEDS: BUDESONIDE 1 MG/2 ML NEBU INHALATION SCH (08:26)
[2021-10-03 09:04] VITALS: RESP 18; TEMP 98.4
[2021-10-03] MEDS: MAGNESIUM OXIDE 400 MG TAB PO SCH (09:05)
[2021-10-03] MEDS: MULTIVITAMINS, THERA 1 EACH TAB PO SCH (09:05)
[2021-10-03] MEDS: metFORMIN 500 MG TAB PO SCH (09:05)
[2021-10-03] MEDS: POTASSIUM CHLORIDE ER 20 MEQ TAB.ER PO SCH (09:05)
[2021-10-03] MEDS: carvediloL 12.5 MG TAB PO SCH (09:05)
[2021-10-03] MEDS: FERROUS SULFATE 325 MG TAB PO SCH (09:05)
[2021-10-03] MEDS: LOSARTAN 50 MG TAB PO SCH (09:05)
[2021-10-03] MEDS: FUROSEMIDE 40 MG TAB PO SCH (09:05)
[2021-10-03] MEDS: ATORVASTATIN 10 MG TAB PO SCH (09:05)
[2021-10-03] MEDS: methylPREDNISolone SOD SUCCI 40 MG/ML 1 ML VIAL IV SCH (09:06)
[2021-10-03] MEDS ORDERED: carvediloL 12.5 MG TAB PO STA (09:42)
[2021-10-03] MEDS ORDERED: VERAPAMIL 40 MG TAB PO SCH (10:30)
--- NOTE | 2021-10-03 11:22 | P.CRDCN ---
History of Present Illness History of present illness: HISTORY OF PRESENTING ILLNESS This is a pleasant 76-year-old male past medical history significant for chronic persistent atrial fibrillation on Xarelto, dyslipidemia, hypertension, type 2 di abetes, cardiomyopathy with an EF of 47% on echo 11/2020 with improvement in EF. He follows in the office with Dr. Asher. We have been asked to see in consultation for atrial fibrillation. Patient to the emergency department on 09/30/2021 with complaints of shortness of breath, productive cough with green sputum, fever, chills. He states he's been getting more short of breath the past 3 months. And recently his symptoms have progressively getting worse. He states that last week he went to [facility] in [facility] with the same symptoms, he is not sure what he was diagnosed with but was sent home. Patient presented to [facility] with similar symptoms. He is currently being treated for left lower lobe pneumonia. Since receiving bronchodilators in the ER he is feeling better. Telemetry reviewed, patient atrial fibrillation with heart rates in the [id number]. DIAGNOSTICS EKG reveals atrial fibrillation with left ventricular response, heart rate 125. Echocardiogram in the office 08/20/2021 revealed EF of 5560 percent ascending aorta is enlarged, mild to moderate mitral regurgitation, mild tricuspid regurgitation, moderately increased pulmonary artery systolic pressure 54 mmHg Dobutamine stress echo in the office 12/2020 revealed no evidence of stress-ind uced ischemia, mild global hypokinesis suggestive of nonischemic cardiomyopathy Chest xray report revealed mild left lower lobe pneumonia Laboratory reviewed, WBC 12.5, hemoglobin 12.4, platelets 384, INR 1.3, sodium 132, potassium 4.3, BUN 12, serum creatinine 0.7, troponin negative 1, proBNP 461, cold. PCI and influenza PCR negative Current home medications include atorvastatin 10 mg daily, carvedilol 12.5 mg twice a day, Flexeril, Lasix 40 mg daily, losartan 50 mg daily, magnesium oxide, potassium chloride, metformin, Xarelto 20 mg nightly, prednisone REVIEW OF SYSTEMS At the time of my exam: CONSTITUTIONAL: Positive fever and chills CARDIOVASCULAR: Positive shortness of breath Denies chest pain, orthopnea, PND or palpitations. RESPIRATORY: Positive productive cough GASTROINTESTINAL: Denies abdominal pain, diarrhea, constipation, nausea or vomiting. MUSCULOSKELETAL: Denies myalgias. NEUROLOGIC: Denies numbness, tingling, headacbe or weakness. ENDOCRINE: Denies fatigue, weight change, polydipsia or polyurina. GENITOURINARY: Denies burning, hematuria or urgency with micturation. HEMATOLOGIC: Denies history of anemia or bleeding. PHYSICAL EXAMINATION Vitals 185/99, HR 120, afebrile, saturations greater than 92% on room air CONSTITUTIONAL: No apparent distress. HEENT: Head is normocephalic. Pupils are equal, round. Sclerae anicteric. Mucous membranes of the mouth are moist. No JVD. No carotid bruit. CHEST EXAMINATION: Lungs are diminished bilaterally to auscultation. No chest wall tenderness is noted on palpation or with deep breathing. HEART EXAMINATION: Irregular and tachycardic rate and rhythm. S1, S2 heard. Systolic ejection murmur at apex. ABDOMEN: Soft, nontender. Positive bowel sounds. EXTREMITIES: 2+ peripheral pulses, moderate severe bilateral nonpitting lower extremity edema and no calf tenderness. SKIN: Warm, dry NEUROLOGIC EXAMINATION: Patient is awake, alert and oriented x3. ASSESSMENT Chronic persistent atrial fibrillation with rapid ventricular response on Xarelto Left lower lobe pneumonia Dyslipidemia Chronic lower extremity edema History of hypertension Type 2 diabetes History of non-ischemic cardiomyopathy, with improved EF PLAN Increase carvedilol to 25mg BID Start Verapamil 40mg TID Continue Xarelto Continue Lasix 40 mg daily, continue losartan 50 mg daily Rest of management per primary From cardiology perspective, patient's heart rates improved and BP stable. Ok to discharge later today and close follow up with Dr. Asher Nurse Practitioner note has been reviewed, I agree with a documented findings and plan of care. Patient was seen and examined. Past Medical History Past Medical History: Atrial Fibrillation, Diabetes Mellitus History of Any Multi-Drug Resistant Organisms: None Reported Past Surgical History: Appendectomy Past Anesthesia/Blood Transfusion Reactions: No Reported Reaction Past Psychological History: Depression Smoking Status: Former smoker Past Alcohol Use History: None Reported Past Drug Use History: None Reported Medications and Allergies Home Medications Medication Instructions Recorded Confirmed Type Atorvastatin Calcium [Lipitor] 10 mg PO DAILY 11/18/20 09/30/21 History Cyclobenzaprine [Flexeril] 10 mg PO BID PRN 11/18/20 09/30/21 History Ferrous Sulfate [Iron (65 MG 325 mg PO DAILY 11/18/20 09/30/21 History Elemental)] Furosemide [Lasix] 40 mg PO DAILY 11/18/20 09/30/21 History Losartan [Cozaar] 50 mg PO DAILY 11/18/20 09/30/21 History Magnesium Oxide 400 mg PO DAILY 11/18/20 09/30/21 History Multivitamins, Thera [Multivitamin 1 tab PO DAILY 11/18/20 09/30/21 History (formulary)] Potassium Chloride [Klor-Con 20] 20 meq PO DAILY 11/18/20 09/30/21 History Zolpidem [Ambien] 10 mg PO HS PRN 11/18/20 09/30/21 History metFORMIN HCL [Glucophage] 1,000 mg PO BID 11/18/20 09/30/21 History carvediloL [Coreg*] 12.5 mg PO BID #60 tab 11/20/20 09/30/21 Rx Rivaroxaban [Xarelto] 20 mg PO HS 09/30/21 09/30/21 History predniSONE [Deltasone] 40 mg PO DAILY 09/30/21 10/01/21 History Allergies Allergy/AdvReac Type Severity Reaction Status Date / Time No Known Allergies Allergy Verified 09/30/21 22:09 Physical Exam Vitals: Vital Signs Temp Pulse Pulse Resp BP BP Pulse Ox 10/02/21 12:18 96 10/02/21 12:02 100 10/02/21 08:56 92 10/02/21 08:37 88 10/02/21 08:00 98.0 F 79 18 125/72 95 10/02/21 04:00 97.8 F 76 22 161/98 98 10/02/21 02:00 94 20 10/02/21 00:00 97.8 F 94 20 146/86 98 10/01/21 22:43 98 10/01/21 21:05 100 10/01/21 20:53 102 H 96 10/01/21 20:00 97.9 F 120 H 22 144/79 94 L 10/01/21 18:37 97.7 F 98 20 140/92 93 L 10/01/21 15:46 92 10/01/21 15:32 88 Intake and Output 10/01/21 10/02/21 10/02/21 22:59 06:59 14:59 Intake Total 240 Balance 240 Intake: Oral 240 Other: # Voids 1 Weight 128.6 kg Results 09/30/21 19:59 10/03/21 07:06 Current Medications Generic Name Dose Route Start Last Admin Trade Name Freliz PRN Reason Stop Dose Admin Acetaminophen 650 mg 10/01/21 12:49 Acetaminophen Tab 325 Mg Tab PO Q6HR PRN Mild Pain or Fever > 100.5 Al Hydroxide/Mg Hydroxide 15 ml 10/01/21 12:49 Mag Hydrox/Al Hydrox/Simeth 30 Ml Cup PO Q6HR PRN Indigestion Albuterol/Ipratropium 3 ml 10/01/21 00:00 10/02/21 12:02 Ipratropium-Albuterol 3 Ml Neb INHALATION 3 ml RT-Q4H KEATON Administration Alprazolam 0.25 mg 10/01/21 12:49 Alprazolam 0.25 Mg Tab PO Q6HR PRN Anxiety Atorvastatin Calcium 10 mg 10/01/21 09:00 10/02/21 08:40 Atorvastatin 10 Mg Tab PO 10 mg DAILY KEATON Administration Budesonide 1 mg 10/01/21 20:00 10/02/21 08:36 Budesonide 1 Mg/2 Ml Nebu INHALATION 1 mg RT-BID KEATON Administration Calcium Carbonate/Glycine 1,000 mg 10/01/21 12:49 Calcium Carbonate 500 Mg Chewable PO Q4HR PRN Dyspepsia Carvedilol 12.5 mg 10/01/21 09:00 10/02/21 08:40 Carvedilol 12.5 Mg Tab PO 12.5 mg BID KEATON Administration Cyclobenzaprine HCl 10 mg 09/30/21 22:45 Cyclobenzaprine 10 Mg Tab PO BID PRN Muscle Spasm Ferrous Sulfate 325 mg 10/01/21 09:00 10/02/21 08:40 Ferrous Sulfate 325 Mg Tab PO 325 mg DAILY KEATON Administration Furosemide 40 mg 10/01/21 09:00 10/02/21 08:40 Furosemide 40 Mg Tab PO 40 mg DAILY KEATON Administration Ceftriaxone Sodium 2 gm/ 50 mls @ 100 mls/hr 10/01/21 21:00 10/01/21 21:55 Sodium Chloride IVPB 10/04/21 21:29 100 mls/hr Q24H KEATON Administration Insulin Aspart 0 unit 10/01/21 17:30 10/02/21 12:46 Insulin Aspart (Novolog) 100 Unit/Ml Vial SQ 8 unit ACHS KEATON Administration Protocol Lactulose 20 gm 10/01/21 12:49 Lactulose 20 Gm/30 Ml Cup PO DAILY PRN Constipation Losartan Potassium 50 mg 10/01/21 09:00 10/02/21 08:40 Losartan 50 Mg Tab PO 50 mg DAILY KEATON Administration Magnesium Hydroxide 2,400 mg 10/01/21 12:49 Magnesium Hydroxide 2,400 Mg/10 Ml Cup PO DAILY PRN Constipation Magnesium Oxide 400 mg 10/01/21 09:00 10/02/21 08:40 Magnesium Oxide 400 Mg Tab PO 400 mg DAILY KEATON Administration Metformin HCl 1,000 mg 10/01/21 09:00 10/02/21 08:39 Metformin 500 Mg Tab PO 1,000 mg BID KEATON Administration Methylprednisolone Sodium Succinate 40 mg 10/01/21 16:00 10/02/21 08:40 Methylprednisolone Sod Succi 40 Mg/Ml 1 Ml Vial IV 40 mg Q8HR KEATON Administration Miscellaneous Information 1 each 09/30/21 22:43 Pneumonia Protocol Utilized 1 Each Misc PO ONCE PRN Per Protocol Multivitamins 1 each 10/01/21 09:00 10/02/21 08:40 Multivitamins, Thera 1 Each Tab PO 1 each DAILY KEATON Administration Naloxone HCl 0.2 mg 10/01/21 12:49 Naloxone 0.4 Mg/Ml 1 Ml Vial IV Q2M PRN Opioid Reversal Ondansetron HCl 4 mg 10/01/21 12:49 Ondansetron 4 Mg/2 Ml Vial IVP Q8HR PRN Nausea And Vomiting Potassium Chloride 20 meq 10/01/21 09:00 10/02/21 08:40 Potassium Chloride Er 20 Meq Tab.Er PO 20 meq DAILY KEATON Administration Rivaroxaban 20 mg 10/01/21 21:00 10/01/21 21:55 Rivaroxaban 20 Mg Tab PO 20 mg HS KEATON Administration Protocol Zolpidem Tartrate 10 mg 10/01/21 23:42 10/02/21 00:02 Zolpidem 5 Mg Tab PO 10 mg HS PRN Administration Insomnia Intake and Output 10/01/21 10/02/21 10/02/21 22:59 06:59 14:59 Intake Total 240 Balance 240 Intake: Oral 240 Other: # Voids 1 Weight 128.6 kg 09/30/21 19:59 09/30/21 19:59
[2021-10-03 11:28] LABS: Glucose,Whole Blood 126 mg/dL (75-99)
[2021-10-03 14:32] VITALS: BP 121/79; PULSE 105
[2021-10-03] MEDS ORDERED: carvediloL 12.5 MG TAB PO SCH (17:30)
--- NOTE | 2021-10-03 17:58 | P.DS ---
Providers Date of admission: 09/30/21 22:43 Expected date of discharge: 10/03/21 Attending physician: José Antonio Packer Consults: 10/02/21 12:29 Consult Physician Routine Consulting Provider: Genet Bragg Consult Reason/Comments: Atrial fibrillation Do you want consulting provider notified?: Yes Primary care physician: [facility] Course: Chief Complaint: Short of breath History of presenting complaint: This is a pleasant [address] Truong. Chronic stable medical conditions include hypertension, hyperlipidemia, diabetes type 2, insomnia,chronic persistent atrial fibrillation. Patient presents to the ER he thinks is progressively getting more and more short of breath for last 3 months. Symptoms become more pronounced recently. About 3-4 days ago he was at [facility]. Was sent over the diagnoses of bronchitis given some antibiotics. Patient having significant amount of coughing. Very little phlegm. He's had some low-grade fever. No change in bowel pattern. is present with him. He has received vaccine against COVID. Patient stopped smoking 40 years ago. Since receiving bronchodilators in the ER he is feeling better. Also been having wheezing. Admitted with pneumonia, COPD exacerbation, atrial fibrillation uncontrolled. Started IV ceftriaxone, IV Solu-Medrol, bronchodilators. Today: Seen by cardiology. Coreg increased to 25 mg twice a day. Verapamil increased to 40 mg 3 times a day. Heart and better control. Patient is pretty symptoms much improved. Care was discussed with the patient and questions answered. Patient's up and about. Pulse ox put on room air. Discussion and discharge planning more than 35 minutes Consultation: Dr. JAY JAY Salazar heart neurology Past medical history to include: Atrial fibrillation, insomnia, diabetes type 2, hypertension, hyperlipidemia Social history: . Patient smoked up to 3 packs a day for about 25 years stopped about 40 years ago.. Past work including driving a forklift Family history: Reviewed, noncontributory to presentation Physical examination: VITAL SIGNS: Afebrile, 105, 18, 1 21 x 79, 94% room air GENERAL: Sitting up comfortable EYES: Pupils equal. Conjunctiva normal. HEENT: External appearance of nose and ears normal, oral cavity grossly normal. NECK: JVD not raised; masses not palpable. HEART: Heart sounds irregular, mild edema. LUNGS: Respiratory rate normal, improved air entry ABDOMEN: Soft, nontender, liver spleen not palpable, no masses palpable. PSYCH: Alert and oriented x3; mood and affect normal. INVESTIGATIONS, reviewed in the clinical context: October 03: Potassium 4.9 creatinine 0.91 Pro-calcitonin 0.08 White count 12.5 hemoglobin 12.4 platelets 384 2132 potassium 4.3 BUN 21-0.78 Troponin I less than 0.012, proBNP 461 Coronavirus, influenza type A type B: All negative EKG tracing personally reviewed by me-atrial fibrillation, rate 125 Chest x-ray film personally reviewed by me-possible left basilar infiltrate Previous testing 2-D echocardiogram [November 2020]-moderate concentric LVH, EF 45-50% right ventricle-moderate to severely enlarged. Ayva-aa-xoyvivat mitral and tricuspid regurgitation Assessment and plan: -Left lower lobe pneumonia suspected gram-negative organism: Improving IV ceftriaxone. Zithromax. Discharge on Ceftin 500 mg twice a day for 6 tablets -Acute COPD exacerbation in a ex-smoker: Improving IV Solu-Medrol 40 mg every 8. DuoNeb. Inhaled steroids. Discharged on prednisone taper, Symbicort 80/4.5 one puff twice a day, albuterol when necessary -Chronic persistent atrial fibrillation uncontrolled ventricular rate: Better Coreg 25 mg twice a day. Xarelto 20 mg daily at bedtime. Verapamil 40 mg 3 times a day -Essential hypertension Coreg 25 mg by mouth twice a day Cozaar 50 mg daily -Hyperlipidemia Lipitor 10 mg daily -Diabetes mellitus type 2 on oral hypoglycemic: Uncontrolled with hyperglycemia secondary to steroids Glucophage thousand milligrams twice a day. Sliding insulin Disposition: Home Patient Condition at Discharge: Fair Plan - Discharge Summary New Discharge Prescriptions: New Verapamil [Isoptin] 40 mg PO TID #90 tab Albuterol Sulfate [Albuterol Sulfate Hfa] 1 puff PO Q4-6H #8.5 gm Cefuroxime Axetil [Ceftin] 500 mg PO BID #6 tab predniSONE 10 mg PO DAILY #30 tab Budesonide/Formoterol Fumarate [Symbicort 80-4.5 Mcg Inhaler] 1 puff INHALATION BID #1 gm Continue Magnesium Oxide 400 mg PO DAILY Ferrous Sulfate [Iron (65 MG Elemental)] 325 mg PO DAILY Zolpidem [Ambien] 10 mg PO HS PRN PRN Reason: Insomnia Potassium Chloride [Klor-Con 20] 20 meq PO DAILY metFORMIN HCL [Glucophage] 1,000 mg PO BID Losartan [Cozaar] 50 mg PO DAILY Furosemide [Lasix] 40 mg PO DAILY Cyclobenzaprine [Flexeril] 10 mg PO BID PRN PRN Reason: Muscle Spasm Atorvastatin Calcium [Lipitor] 10 mg PO DAILY Multivitamins, Thera [Multivitamin (formulary)] 1 tab PO DAILY Rivaroxaban [Xarelto] 20 mg PO HS Changed carvediloL [Coreg*] 25 mg PO BID #60 tab Discontinued predniSONE [Deltasone] 40 mg PO DAILY Discharge Medication List Atorvastatin Calcium [Lipitor] 10 mg PO DAILY 11/18/20 [History] Cyclobenzaprine [Flexeril] 10 mg PO BID PRN 11/18/20 [History] Ferrous Sulfate [Iron (65 MG Elemental)] 325 mg PO DAILY 11/18/20 [History] Furosemide [Lasix] 40 mg PO DAILY 11/18/20 [History] Losartan [Cozaar] 50 mg PO DAILY 11/18/20 [History] Magnesium Oxide 400 mg PO DAILY 11/18/20 [History] Multivitamins, Thera [Multivitamin (formulary)] 1 tab PO DAILY 11/18/20 [History] Potassium Chloride [Klor-Con 20] 20 meq PO DAILY 11/18/20 [History] Zolpidem [Ambien] 10 mg PO HS PRN 11/18/20 [History] metFORMIN HCL [Glucophage] 1,000 mg PO BID 11/18/20 [History] Rivaroxaban [Xarelto] 20 mg PO HS 09/30/21 [History] Albuterol Sulfate [Albuterol Sulfate Hfa] 1 puff PO Q4-6H #8.5 gm 10/03/21 [Rx] Budesonide/Formoterol Fumarate [Symbicort 80-4.5 Mcg Inhaler] 1 puff INHALATION BID #1 gm 10/03/21 [Rx] Cefuroxime Axetil [Ceftin] 500 mg PO BID #6 tab 10/03/21 [Rx] Verapamil [Isoptin] 40 mg PO TID #90 tab 10/03/21 [Rx] carvediloL [Coreg*] 25 mg PO BID #60 tab 10/03/21 [Rx] predniSONE 10 mg PO DAILY #30 tab 10/03/21 [Rx] Follow up Appointment(s)/Referral(s): Chapincito Asehr MD [STAFF PHYSICIAN] - 2 Weeks (Please call to make a follow-up appointment) Denny Truong MD [Primary Care Provider] - 1-2 days (Please call to make a follow- up appointment) Patient Instructions/Handouts: A-fib (Atrial Fibrillation) (DC), COPD (Chronic Obstructive Pulmonary Disease) (DC) Discharge Disposition: HOME SELF-CARE
== END 2021-10-03 14:30 | disposition home or self-care (01) | DRG 178 ==
LOC: EC 19:07 → 3SCARD 22:43
PROVIDERS: ADMIT Hospitalist; ATTEND Hospitalist
DX: J15.6 Pneumonia due to other Gram-negative bacteria (principal); J44.0 Chronic obstructive pulmonary disease with (acute) lower respiratory infection; I42.8 Other cardiomyopathies; I48.19 Other persistent atrial fibrillation; J44.1 Chronic obstructive pulmonary disease with (acute) exacerbation; Z20.822 Contact with and (suspected) exposure to COVID-19; E11.65 Type 2 diabetes mellitus with hyperglycemia; E78.5 Hyperlipidemia, unspecified; T38.0X5A Adverse effect of glucocorticoids and synthetic analogues, initial encounter; E83.42 Hypomagnesemia; E86.0 Dehydration; F32.9 Major depressive disorder, single episode, unspecified; G47.00 Insomnia, unspecified; I10 Essential (primary) hypertension; Z79.01 Long term (current) use of anticoagulants; Z79.84 Long term (current) use of oral hypoglycemic drugs; Z79.899 Other long term (current) drug therapy; Z87.891 Personal history of nicotine dependence; Z90.49 Acquired absence of other specified parts of digestive tract
CPT/HCPCS: 36415; 71046; 80048; 80053; 83605; 83735; 83880; 84145; 84484; 85025; 85610; 85730; 87040; 87070; 87205; 87502; 87635; 93005; 94640; 94760; 96365; 96366; 96367; 96374; 99291

== ENCOUNTER 2021-10-19 22:23 | Emergency (ER) | payer MEDICARE ==
--- NOTE | 2021-10-19 23:08 | ED ---
SOB HPI - General Stated Complaint: VANCE/SOB Time Seen by Provider: 10/19/21 23:02 - History of Present Illness Initial Comments: 76 year-old male patient presents for evaluation of shortness of breath and wheezing over the last couple of days. Patient was admitted a week ago for pneumonia. He is coughing up green sputum. Denies any fever or chills. Denies any chest pain. Denies nausea or vomiting. State he has had three breathing treatments today. Reports increased swelling to the lower legs. States after coming home from a parade today he became short of breath and wheezy. States he did a breathing treatment which did not improve his symptoms. States the EMS came to the house and put him on oxygen. States that he felt better and was able to drive himself here. States he was started on medication for atrial fibrillation at the time of discharge from the hospital. - Related Data Home Medications Medication Instructions Recorded Confirmed Atorvastatin Calcium [Lipitor] 10 mg PO DAILY 11/18/20 09/30/21 Cyclobenzaprine [Flexeril] 10 mg PO BID PRN 11/18/20 09/30/21 Ferrous Sulfate [Iron (65 MG 325 mg PO DAILY 11/18/20 09/30/21 Elemental)] Furosemide [Lasix] 40 mg PO DAILY 11/18/20 09/30/21 Losartan [Cozaar] 50 mg PO DAILY 11/18/20 09/30/21 Magnesium Oxide 400 mg PO DAILY 11/18/20 09/30/21 Multivitamins, Thera [Multivitamin 1 tab PO DAILY 11/18/20 09/30/21 (formulary)] Potassium Chloride [Klor-Con 20] 20 meq PO DAILY 11/18/20 09/30/21 Zolpidem [Ambien] 10 mg PO HS PRN 11/18/20 09/30/21 metFORMIN HCL [Glucophage] 1,000 mg PO BID 11/18/20 09/30/21 Rivaroxaban [Xarelto] 20 mg PO HS 09/30/21 09/30/21 Previous Rx's Medication Instructions Recorded Albuterol Sulfate [Albuterol 1 puff PO Q4-6H #8.5 gm 10/03/21 Sulfate Hfa] Budesonide/Formoterol Fumarate 1 puff INHALATION BID #1 gm 10/03/21 [Symbicort 80-4.5 Mcg Inhaler] Cefuroxime Axetil [Ceftin] 500 mg PO BID #6 tab 10/03/21 Verapamil [Isoptin] 40 mg PO TID #90 tab 10/03/21 carvediloL [Coreg*] 25 mg PO BID #60 tab 10/03/21 predniSONE 10 mg PO DAILY #30 tab 10/03/21 Azithromycin [Zithromax Z-pack (6 0 mg PO DIRECTED #6 tab 10/20/21 tabs)] predniSONE 50 mg PO DAILY #5 tablet 10/20/21 Allergies Allergy/AdvReac Type Severity Reaction Status Date / Time No Known Allergies Allergy Verified 10/19/21 23:04 Review of Systems ROS Statement: Those systems with pertinent positive or pertinent negative responses have been documented in the HPI. ROS Other: All systems not noted in ROS Statement are negative. Past Medical History Past Medical History: Atrial Fibrillation, Diabetes Mellitus History of Any Multi-Drug Resistant Organisms: None Reported Past Surgical History: Appendectomy Past Anesthesia/Blood Transfusion Reactions: No Reported Reaction Past Psychological History: Depression Smoking Status: Former smoker Past Alcohol Use History: None Reported Past Drug Use History: None Reported General Exam General appearance: alert, in no apparent distress, other (This is a well- developed, well-nourished adult male in no acute distress) Eye exam: Present: normal appearance, PERRL, EOMI. Absent: scleral icterus, conjunctival injection, periorbital swelling ENT exam: Present: normal exam, normal oropharynx, mucous membranes moist Respiratory exam: Present: decreased breath sounds. Absent: respiratory distress, wheezes, rales, rhonchi, stridor Cardiovascular Exam: Present: regular rate, normal rhythm, normal heart sounds. Absent: systolic murmur, diastolic murmur, rubs, gallop, clicks GI/Abdominal exam: Present: soft, normal bowel sounds. Absent: distended, tenderness, guarding, rebound, rigid Neurological exam: Present: alert, oriented X3, CN II-XII intact Skin exam: Present: warm, dry, intact, normal color. Absent: rash Course Vital Signs 10/19/21 10/20/21 10/20/21 23:01 02:29 02:42 Temperature 98.9 F Pulse Rate 82 80 78 Respiratory 22 Rate Blood Pressure 127/64 O2 Sat by Pulse 98 Oximetry 10/20/21 03:39 Temperature 98.7 F Pulse Rate 79 Respiratory 18 Rate Blood Pressure 143/78 O2 Sat by Pulse 99 Oximetry Medical Decision Making - Medical Decision Making 76-year-old male patient presents to the emergency department today for evaluation of increased shortness of breath and wheezing at home. Physical examination did reveal diminished lung sounds at the bases. No wheezing. Oxygen saturation are 95-96% on room air. Chest x-ray did show improving pneumonia in the left lower lobe. Labs reviewed and were unremarkable. BNP only slightly increased at 600. I did discuss findings and results with him and his . We discussed doing an additional antibiotic and course of steroids and discharge home. Patient is agreeable this plan, is uncomfortable. I did offer admission for IV antibiotics if the patient was uncomfortable with discharge. He declined stating he wants to go home. He did tolerate ambulating in the department. Oxygen saturation remained 95% on room air. He will be discharged with azithromycin and prednisone. He is instructed to do breathing treatments every 4 hours at home. He is instructed to follow-up with his primary care physician for recheck on Thursday. Return parameters were discussed in detail. He verbalizes understanding and agrees with this plan. Case discussed with my attending Dr. Anderson. - Lab Data Result diagrams: 10/20/21 02:30 10/20/21 02:30 Lab Results 10/19/21 10/20/21 10/20/21 Range/Units 23:07 02:30 02:30 WBC 9.1 (3.8-10.6) k/uL RBC 3.89 L (4.30-5.90) m/uL Hgb 12.2 L (13.0-17.5) gm/dL Hct 36.3 L (39.0-53.0) % MCV 93.4 (80.0-100.0) fL MCH 31.4 (25.0-35.0) pg MCHC 33.6 (31.0-37.0) g/dL RDW 13.9 (11.5-15.5) % Plt Count 172 D (150-450) k/uL MPV 7.3 Neutrophils % 82 % Lymphocytes % 10 % Monocytes % 5 % Eosinophils % 1 % Basophils % 0 % Neutrophils # 7.5 (1.3-7.7) k/uL Lymphocytes # 0.9 L (1.0-4.8) k/uL Monocytes # 0.5 (0-1.0) k/uL Eosinophils # 0.1 (0-0.7) k/uL Basophils # 0.0 (0-0.2) k/uL PT 12.2 H (9.0-12.0) sec INR 1.2 H (<1.2) APTT 24.8 (22.0-30.0) sec Sodium (137-145) mmol/L Potassium (3.5-5.1) mmol/L Chloride (98-107) mmol/L Carbon Dioxide (22-30) mmol/L Anion Gap mmol/L BUN (9-20) mg/dL Creatinine (0.66-1.25) mg/dL Est GFR (CKD-EPI)AfAm (>60 ml/min/1.73 sqM) Est GFR (CKD-EPI)NonAf (>60 ml/min/1.73 sqM) Glucose (74-99) mg/dL Calcium (8.4-10.2) mg/dL Magnesium (1.6-2.3) mg/dL Total Bilirubin (0.2-1.3) mg/dL AST (17-59) U/L ALT (4-49) U/L Alkaline Phosphatase (38-126) U/L Troponin I (0.000-0.034) ng/mL NT-Pro-B Natriuret Pep pg/mL Total Protein (6.3-8.2) g/dL Albumin (3.5-5.0) g/dL Coronavirus (PCR) Not Detected (Not Detectd) 10/20/21 10/20/21 10/20/21 Range/Units 02:30 02:30 02:30 WBC (3.8-10.6) k/uL RBC (4.30-5.90) m/uL Hgb (13.0-17.5) gm/dL Hct (39.0-53.0) % MCV (80.0-100.0) fL MCH (25.0-35.0) pg MCHC (31.0-37.0) g/dL RDW (11.5-15.5) % Plt Count (150-450) k/uL MPV Neutrophils % % Lymphocytes % % Monocytes % % Eosinophils % % Basophils % % Neutrophils # (1.3-7.7) k/uL Lymphocytes # (1.0-4.8) k/uL Monocytes # (0-1.0) k/uL Eosinophils # (0-0.7) k/uL Basophils # (0-0.2) k/uL PT (9.0-12.0) sec INR (<1.2) APTT (22.0-30.0) sec Sodium 132 L (137-145) mmol/L Potassium 4.7 (3.5-5.1) mmol/L Chloride 100 (98-107) mmol/L Carbon Dioxide 25 (22-30) mmol/L Anion Gap 7 mmol/L BUN 16 (9-20) mg/dL Creatinine 0.81 (0.66-1.25) mg/dL Est GFR (CKD-EPI)AfAm >90 (>60 ml/min/1.73 sqM) Est GFR (CKD-EPI)NonAf 86 (>60 ml/min/1.73 sqM) Glucose 121 H (74-99) mg/dL Calcium 8.9 (8.4-10.2) mg/dL Magnesium 1.7 (1.6-2.3) mg/dL Total Bilirubin 0.9 (0.2-1.3) mg/dL AST 34 (17-59) U/L ALT 35 (4-49) U/L Alkaline Phosphatase 41 (38-126) U/L Troponin I <0.012 (0.000-0.034) ng/mL NT-Pro-B Natriuret Pep 673 pg/mL Total Protein 6.0 L (6.3-8.2) g/dL Albumin 3.3 L (3.5-5.0) g/dL Coronavirus (PCR) (Not Detectd) - EKG Data -: EKG Interpreted by Me EKG Comments: EKG obtained at 2309 shows atrial fibrillation with PVCs. Ventricular rate is 78, QRS duration 102, QT 380, QTc 433. No evidence of ST elevation or depression. - Radiology Data Radiology results: report reviewed, image reviewed Two-view x-ray of the chest is obtained. Report was reviewed in its entirety. Impression by Dr. Martin shows mild infiltrate at the lateral left lung base which is improved slightly compared to old exam. No heart failure. Cardiomegaly without change. Disposition Clinical Impression: COPD exacerbation, Left lower lobe pneumonia Disposition: HOME SELF-CARE Condition: Good Instructions (If sedation given, give patient instructions): COPD (Chronic Obstructive Pulmonary Disease) (ED), Pneumonia (ED) Additional Instructions: Take medications as directed. Take double dose of lasix in the morning, one time only. Do breathing treatments every 4 hours. Follow up with your primary care physician for recheck on Thursday. Return for any new, worsening, or concerning symptoms. Prescriptions: predniSONE 50 mg PO DAILY #5 tablet Azithromycin [Zithromax Z-pack (6 tabs)] 0 mg PO DIRECTED #6 tab Is patient prescribed a controlled substance at d/c from ED?: No Referrals: Denny Truong MD [Primary Care Provider] - 1-2 days Time of Disposition: 04:06
--- NOTE | 2021-10-19 23:30 | XR ---
EXAMINATION TYPE: XR chest 2V DATE OF EXAM: 10/19/2021 COMPARISON: 10/01/2021 HISTORY: Pneumonia TECHNIQUE: 2 views FINDINGS: There is some blunting of the left costophrenic angle. Heart is enlarged. There is no heart failure. There are no hilar masses. IMPRESSION: There is some mild infiltrate at the lateral left lung base which is improved slightly co mpared to old exam. No heart failure. Cardiomegaly without change.
[2021-10-20] MEDS ORDERED: IPRATROPIUM-ALBUTEROL 3 ML NEB INHALATION STA (01:51)
[2021-10-20] MEDS ORDERED: ALBUTEROL NEB (CONC) 2.5 MG/0.5 ML INHALATION STA (01:51)
[2021-10-20] MEDS ORDERED: methylPREDNISolone SOD SUCCI 125 MG/2 ML VIAL IV STA (01:51)
[2021-10-20 02:56] LABS: Basophils % (A) 0 %; Eosinophils # (A) 0.1 k/uL (0-0.7); Eosinophils % (A) 1 %; HCT 36.3 % (39.0-53.0); HGB 12.2 gm/dL (13.0-17.5); Lymphocytes # (A) 0.9 k/uL (1.0-4.8); Lymphocytes % (A) 10 %; MCH 31.4 pg (25.0-35.0); MCHC 33.6 g/dL (31.0-37.0); MCV 93.4 fL (80.0-100.0); Mean Platelet Volume 7.3; Monocytes # (A) 0.5 k/uL (0-1.0); Monocytes % (A) 5 %; Neutrophils # (A) 7.5 k/uL (1.3-7.7); Neutrophils % (A) 82 %; RBC 3.89 m/uL (4.30-5.90); RDW 13.9 % (11.5-15.5); WBC 9.1 k/uL (3.8-10.6)
[2021-10-20 03:00] LABS: Platelet Count 172 k/uL (150-450)
[2021-10-20 03:05] LABS: INR 1.2 (<1.2); Partial Thromboplastin Time 24.8 sec (22.0-30.0); Prothrombin Time 12.2 sec (9.0-12.0)
[2021-10-20 03:06] LABS: ALT 35 U/L (4-49); AST 34 U/L (17-59); African American GFR (CKD) >90 (>60 ml/min/1.73 sqM); Albumin 3.3 g/dL (3.5-5.0); Alkaline Phosphatase 41 U/L (38-126); Anion Gap 7 mmol/L; Blood Urea Nitrogen 16 mg/dL (9-20); Calcium 8.9 mg/dL (8.4-10.2); Carbon Dioxide 25 mmol/L (22-30); Chloride 100 mmol/L (98-107); Glucose 121 mg/dL (74-99); Magnesium 1.7 mg/dL (1.6-2.3); Non-African American GFR(CKD) 86 (>60 ml/min/1.73 sqM); Potassium 4.7 mmol/L (3.5-5.1); Sodium 132 mmol/L (137-145); Total Bilirubin 0.9 mg/dL (0.2-1.3)
[2021-10-20 03:41] VITALS: RESP 18; TEMP 98.7
[2021-10-20] MEDS ORDERED: AZITHROMYCIN 500 MG TAB PO STA (04:04)
[2021-10-20] MEDS ORDERED: ACETAMINOPHEN TAB 325 MG TAB PO STA (04:26)
[2021-10-20 04:30] VITALS: BP 154/78; PULSE 90
== END 2021-10-20 04:30 | disposition home or self-care (01) ==
LOC: EC 22:23
DX: J44.1 Chronic obstructive pulmonary disease with (acute) exacerbation (principal); J18.9 Pneumonia, unspecified organism; Z20.822 Contact with and (suspected) exposure to COVID-19; Z87.891 Personal history of nicotine dependence
CPT/HCPCS: 36415; 71046; 80053; 83735; 83880; 84484; 85025; 85610; 85730; 87635; 93005; 94640; 96374; 99285

== ENCOUNTER 2023-01-27 07:18 | Observation (INO) | payer MEDICARE ==
[2023-01-21 14:26] VITALS: BMI 42.8
[~2023-01-27 07:18] MED LIST: ACETAMINOPHEN TAB 500 MG TAB PO PRN; DEXAMETHASONE SOD PHOSPHATE 4 MG/ML 1 ML VIAL IV ONE; GABAPENTIN 300 MG CAP PO PRN; LIDOCAINE 1% (10MG/ML) FOR IV START INTRADERMA PRN; MELOXICAM 7.5 MG TAB PO PRN; ONDANSETRON 4 MG/2 ML VIAL IVP ONE; TRANEXAMIC ACID IN NACL,ISO-OS 1,000 MG in SALINE 1 100ML.BAG IVPB PRN; ceFAZolin 3 GM in SODIUM CHLORIDE 0.9% 100 ML IVPB PRN
[2023-01-27 08:20] LABS: Glucose,Whole Blood 137 mg/dL (70-110)
[2023-01-27] MEDS ORDERED: MIDAZOLAM 2 MG/2 ML VIAL IVP ONE (08:34)
[2023-01-27] MEDS ORDERED: fentaNYL (PF) 50 MCG/1 ML VIAL IVP ONE (08:34)
[2023-01-27] MEDS: LACTATED RINGERS 1,000 ML IV SCH (08:44)
[2023-01-27] MEDS ORDERED: ceFAZolin 1,000 MG in SODIUM CHLORIDE 0.9% 1,000 ML IRRIGATION ONE (08:51)
--- NOTE | 2023-01-27 08:51 | P.ANPRN ---
Procedure Note - Anesthesia - Nerve Block Performed Right Tristan Single Time Out Performed: Yes ([id number]) Date of Procedure: 01/27/23 Procedure Start Time: : Procedure Stop Time: :39 Location of Patient: PreOp Indication: Acute Post-Operative Pain, Dx/Pain Location (right hip), Requested by Surgeon Specifically requested for management of pain by DrОльга: Jann De Oliveira Sedation Type: Sedate with meaningful contact maintained Preparation: Sterile Prep Position: Supine Catheter: None Needle Types: Pajunk Needle Gauge: 18 (100 mm) Ultrasound used to visualize needle placement: Yes Ultrasound used to observe medication spread: Yes Injectate: 0.5% Ropivacaine (see comment for volume) (20 cc) Blood Aspirated: No Pain Paresthesia on Injection Noted: No Resistance on Injection: Normal Image Stored and Saved: Yes Events: Uneventful and Well Tolerated
[2023-01-27] MEDS ORDERED: ROCURONIUM 10 MG/ML (5 ML VIAL) IV ONE (08:58)
[2023-01-27] MEDS ORDERED: fentaNYL (PF) 50 MCG/ML 2 ML AMP ONE (08:58)
[2023-01-27] MEDS ORDERED: PHENYLEPHRINE-0.9% NACL SYG 1,000 MCG/10 ML SYRINGE ONE (08:58)
[2023-01-27] MEDS ORDERED: ROPIVACAINE 5 MG/ML 30 ML VIAL ONE (08:58)
[2023-01-27] MEDS ORDERED: SUCCINYLCHOLINE CHLORIDE 200 MG/10 ML VIAL IV ONE (08:58)
[2023-01-27] MEDS ORDERED: LIDOCAINE 2% INJ 20 MG/ML (2 ML VIAL) ONE (08:58)
[2023-01-27] MEDS ORDERED: PROPOFOL 10 MG/ML 20 ML VIAL IV ONE (08:58)
[2023-01-27] MEDS ORDERED: TRANEXAMIC ACID IN NACL,ISO-OS 1,000 MG/100 ML BAG ONE (08:58)
[2023-01-27] MEDS ORDERED: HYDROmorphone (PF) 1 MG/ML ONE (08:58)
[2023-01-27] MEDS ORDERED: MIDAZOLAM 2 MG/2 ML VIAL ONE (08:58)
[2023-01-27] MEDS ORDERED: ROPIVACAINE 5 MG/ML 30 ML VIAL MISCELLANE ONE ×2 (09:01→10:30)
--- NOTE | 2023-01-27 10:43 | P.OP ---
Date of Procedure: 01/27/23 Preoperative Diagnosis: 1. Severe osteoarthritis right hip 2. Morbid obesity Postoperative Diagnosis: 1. Severe osteoarthritis right hip 2. Morbid obesity Procedure(s) Performed: Right total hip arthroplasty with a direct anterior approach Implants: [employer] Polarstem standard size 2 with a collar [employer] R3, 3 hole hemispherical acetabular shell, 52 mm [employer] Reflection 6.5 mm cancellus screw, 20 mm, 25 mm [employer] R3, XLPE 20 acetabular liner [employer] Oxinium femoral head 36 m, +0 All components were press-fit. The articulation is Oxinium on polyethylene. Anesthesia: GETA Surgeon: Jann De Oliveira Forging Press Setter Up #1: Teagan Best Estimated Blood Loss (ml): 500 Pathology: other (Femoral head) Condition: stable Disposition: PACU Indications for Procedure: After failure of conservative treatment we discussed the surgical and nonsurgical treatment options at length. Patient wishes to proceed with a total hip arthroplasty with a direct anterior approach. Complications specific to this procedure were discussed at length, including but not limited to infection, leg length discrepancy, dislocation, nerve injury, and fracture. Covid-19 was also discussed at length with the patient, and they are aware of the current policies and procedures. The patient was given the option of delaying surgery, but they elect to proceed knowing these risks. Patient is aware of all these complications and informed consent was obtained. Also, because of the patient's morbid obesity it significantly increased the difficulty of the surgery. There is also increased his risk of postoperative complications. Operative Findings: The operative findings are consistent with severe osteoarthritis of the right hip and morbid obesity Description of Procedure: The patient was seen and evaluated in the preoperative area and the consent was reviewed. The operative site was marked with a skin marker. The patient verified the procedure and operative site. A SARITHA block was placed by anesthesia in the preoperative area. The patient was then brought to the operating room and given preoperative antibiotics intravenously. 1 g of Tranexamic acid was also given intravenously. A spinal anesthetic was administered by the anesthesia department. The patient was then placed on the [place] table with the bony prominences well-padded. The hip area was then prepped with a ChloraPrep solution and draped in the usual sterile fashion. A universal timeout was then performed, which confirmed the patient's name, surgical site, ALLERGIES, and procedure being performed on the consent. Next the incision site was located at 1 cm distal and 4 cm lateral to the anterior superior iliac spine. The skin and subcutaneous tissues were sharply incised. Incision was carefully dissected down to the fascia overlying the tensor fascia cris muscle. This fascia was then incised in line with the muscle fibers. Care was taken to stay laterally in order to avoid injuring the lateral femoral cutaneous nerve. Next, using blunt finger dissection, the tensor fascia cris muscle was dissected off its investing fascia. The muscle was then carefully retracted laterally with a cobra retractor over the lateral neck of the femur. Next, the circumflex vessels were identified and cauterized using the Aquamantis device. The anterior hip capsule was then exposed. The capsule was then opened and an inverted T fashion. The retractors were then placed intracapsularly. The retractors were maintained intracapsular throughout the procedure. The proximal femur was then visualized. Fluoroscopic x-rays were then taken in order to evaluate the preoperative leg lengths. A small amount of traction was placed on the leg. The femoral neck was then osteotomized at the appropriate level above the lesser trochanter. A small wedge of bone was then removed from the remaining femoral head. Next, using a corkscrew the femoral head was removed from the acetabulum. On gross visual inspection, the femoral head had complete loss of articular cartilage and multiple periarticular osteophytes. The femoral head was then measured. Attention was then turned to the acetabulum. The acetabulum was exposed and any remaining labrum was excised. Sequential reaming of the acetabulum was performed using fluoroscopic guidance until there was a good bed of bleeding cancellus bone. When the appropriate size was reached, a trial was then placed. The position and fit of the trial was checked with fluoroscopy. The trial was then removed. Then, using fluoroscopic guidance, the final implant was impacted at 20 of anteversion and 40 of abduction, and fully seated in the acetabulum. 2 screws were then placed in the acetabulum. Again fluoroscopy was used to check position of the screws. Next, the liner was then impacted, with a 20 elevated liner located in the anterior superior quadrant. Component locking was confirmed. Attention was then directed to the femur. With the aid of the [place] table, the femur was externally rotated to approximately 130, extended, and adducted under the opposite leg. A side hook was then placed under the proximal femur, and the side hook elevator was used to elevate the proximal femur while releasing the capsule. Retractors were then placed. A capsular release was performed, as well as a release of the conjoined tendon, which afforded excellent visualization of the proximal femur. Next, a box osteotome was used to lateralize the proximal femur. A online merchandiser was then used to locate the femora l canal. Sequential broaching was then performed with appropriate size which afforded excellent fixation in the proximal femur. A trial was then placed with appropriate head and neck, and the hip was gently reduced with the aid of the [place] table. Fluoroscopy was then used to check position of the components, as well as to evaluate the leg lengths and offset. The leg lengths and offset were measured as closely as possible to ensure stability of the hip. The hip was then gently dislocated and the trials were then removed. Final implants were then impacted and the hip was again reduced. Final fluoroscopic x-rays confirmed that the components were in anatomic position. The leg lengths and offset were measured and were found to coincide with the trial measurements. The hip was also taken through range of motion, and found to be stable. The hip was then copiously irrigated with antibiotic solution with pulsatile lavage. The hip was then irrigated with Irrisept solution. The soft tissues were then injected with a ropivacaine solution. A second dose of 1 g of Tranexamic acid was also given intravenously. The fascia was then closed with 2-0 strata fix suture. The subcutaneous tissue was closed with 3-0 Vicryl. The subcuticular tissue was closed with 3-0 strata fix suture. A Prevena plus wound VAC was placed because of the increased risk of wound complications secondary to the patient's morbid obesity. The patient was then transferred to the recovery room in stable condition. The commercial assistant HUEY Sue was required due to the complexity of surgery, and the need for skilled surgical instrument technician for positioning, draping, exposure, retraction, and closure of the wound.
[2023-01-27] MEDS ORDERED: LACTATED RINGERS 1,000 ML IV ONE (10:46)
--- NOTE | 2023-01-27 10:52 | XR ---
Intraoperative/procedural fluoroscopic services were provided for total right hip arthroplasty. Hardw are appears intact with appropriate alignment. Total fluoroscopy time is 46.8 seconds with a total of 2 submitted images to PACS. Please see the operative note for further details.
[2023-01-27] MEDS ORDERED: MAGNESIUM HYDROXIDE 2,400 MG/10 ML CUP PO PRN (11:25)
[2023-01-27] MEDS ORDERED: NALOXONE 0.4 MG/ML 1 ML VIAL IV PRN (11:25)
[2023-01-27] MEDS ORDERED: HYDROmorphone 0.5 MG/0.5 ML SYRINGE IVP PRN ×3 (11:25)
[2023-01-27] MEDS ORDERED: ONDANSETRON 4 MG/2 ML VIAL IVP PRN (11:25)
[2023-01-27] MEDS ORDERED: HYDROcodone/APAP 7.5-325MG 1 EACH TAB PO PRN (11:27)
[2023-01-27] MEDS: HYDROmorphone 0.5 MG/0.5 ML SYRINGE IVP PRN ×4 (11:35→12:38)
--- NOTE | 2023-01-27 11:49 | XR ---
EXAMINATION TYPE: XR Hip Limited RT DATE OF EXAM: 01/27/2023 COMPARISON: NONE HISTORY: Postop TECHNIQUE: One view submitted. FINDINGS: There is postsurgical change in near anatomic alignment. There is soft tissue edema and emphysema. IMPRESSION: 1. Postoperative change. Appears in near-anatomic alignment.
[2023-01-27 13:09] LABS: Glucose,Whole Blood 193 mg/dL (70-110)
[2023-01-27] MEDS ORDERED: IPRATROPIUM-ALBUTEROL 3 ML NEB INHALATION PRN (16:17)
[2023-01-27] MEDS ORDERED: DEXTROSE 50% SYRINGE 50 ML IVP PRN ×2 (16:18)
[2023-01-27 16:59] LABS: Glucose,Whole Blood 156 mg/dL (70-110)
[2023-01-27] MEDS: INSULIN ASPART (NovoLOG) 100 UNIT/ML VIAL SQ SCH (17:36)
[2023-01-27] MEDS: metFORMIN 500 MG TAB PO SCH (17:36)
[2023-01-27] MEDS: ceFAZolin 3 GM in SODIUM CHLORIDE 0.9% 100 ML IVPB SCH (17:36)
[2023-01-27] MEDS: SODIUM CHLORIDE 0.9% 1,000 ML IV SCH (17:37)
[2023-01-27] MEDS: carvediloL 12.5 MG TAB PO SCH (20:02)
[2023-01-27] MEDS: VERAPAMIL 40 MG TAB PO SCH (20:03)
[2023-01-27] MEDS: SENNOSIDES-DOCUSATE SODIUM 1 EACH TAB PO SCH (20:03)
[2023-01-27 20:26] LABS: Glucose,Whole Blood 146 mg/dL (70-110)
[2023-01-27] MEDS ORDERED: ALBUTEROL HFA INHALER INHALATION PRN (20:57)
[2023-01-27] MEDS ORDERED: TIOTROPIUM 2.5 MCG INHALER INHALATION PRN (21:00)
--- NOTE | 2023-01-27 21:03 | P.CONS ---
History of Present Illness - Reason for Consult Consult date: 01/27/23 Medical management Requesting physician: Jann De Oliveira - Chief Complaint Right hip pain - History of Present Illness This is a pleasant 78-year-old patient who follows with Dr. Truong. Chronic stable medical conditions include atrial fibrillation, diabetes, hypertension, hyperlipidemia, COPD. Patient's had undergone right total hip arthroplasty. Postprocedure pain is controlled. No nausea vomiting. No chest pain. Laying in bed. Review of systems: GEN.: None EYES: None HEENT: None NECK: None RESPIRATORY: None CARDIOVASCULAR: None GASTROINTESTINAL: None GENITOURINARY: None MUSCULOSKELETAL: Joint pains LYMPHATICS: None HEMATOLOGICAL: None PSYCHIATRY: None NEUROLOGICAL: Uses a walker Past medical history to include: Atrial fibrillation, diabetes, hypertension, hyperlipidemia, OA, COPD Social history: Lives with his . No smoking or alcohol. Uses a walker. Physical examination: VITAL SIGNS: 97.8, 104, 16, 164/100, 97% on 1 L GENERAL: BMI 42.6, reclining in bed awake comfortable. EYES: Pupils equal. Conjunctiva normal. HEENT: External appearance of nose and ears normal, oral cavity grossly normal. NECK: JVD not raised; masses not palpable. HEART: First and second heart sounds are normal; no edema. LUNGS: Respiratory rate normal; clear to auscultation. ABDOMEN: Soft, nontender, liver spleen not palpable, no masses palpable. PSYCH: Alert and oriented x3; mood and affect normal. MUSCULOSKELETAL:No Clubbing/cyanosis;muscles-grossly intact. Dressing over the right hip incision. OA. NEUROLOGICAL: Cranial nerves grossly intact; no facial asymmetry, power and sensation grossly intact. LYMPHATICS: No lymph nodes palpable in the axilla and neck INVESTIGATIONS, reviewed in the clinical context: 01/19/2023: Sodium 136 potassium 4.4 creatinine 0.9 01/15/2023: White count 8.1 hemoglobin 12.1 platelets 256 Assessment and plan: -Right total hip arthroplasty. Patient is on eliquis. Continue the same for DVT prophylaxis. Pain control. -Morbid obesity BMI 42.6 Weight loss measures -Diabetes mellitus type 2 on oral hypoglycemic Metformin thousand milligrams twice a day. Follow Accu-Cheks. -Hyperlipidemia Lipitor 10 mg -Essential hypertension Coreg 12.5 mg by mouth twice a day. Verapamil 40 mg by mouth 3 times a day. Hold Cozaar for now. -Paroxysmal atrial fibrillation Coreg, verapamil. Eliquis to be resumed when okay with orthopedics -COPD DuoNeb when necessary -Primary osteoarthritis Pain medications as needed Care was discussed with the patient. Questions answered. Eliquis to be resumed as per orthopedics. Thank you Dr. De Oliveira Past Medical History Past Medical History: Atrial Fibrillation, Heart Failure, Diabetes Mellitus, Hyperlipidemia, Hypertension History of Any Multi-Drug Resistant Organisms: None Reported Past Surgical History: Appendectomy, Joint Replacement Additional Past Surgical History / Comment(s): total left hip Past Anesthesia/Blood Transfusion Reactions: No Reported Reaction Additional Past Anesthesia/Blood Transfusion Reaction / Comm: no hx blood transfusion Smoking Status: Former smoker - Past Family History Mother Family Medical History: No Reported History Sister(s) Family Medical History: Cancer Additional Family Medical History / Comment(s): breast,eye Medications and Allergies Home Medications Medication Instructions Recorded Confirmed Type Atorvastatin Calcium [Lipitor] 10 mg PO DAILY 11/18/20 01/21/23 History Ferrous Sulfate [Iron (65 MG 325 mg PO DAILY 11/18/20 01/21/23 History Elemental)] Furosemide [Lasix] 40 mg PO HS 11/18/20 01/21/23 History Losartan [Cozaar] 100 mg PO QAM 11/18/20 01/21/23 History Magnesium Oxide 400 mg PO DAILY 11/18/20 01/21/23 History Multivitamins, Thera [Multivitamin 1 tab PO DAILY 11/18/20 01/21/23 History (formulary)] Potassium Chloride [Klor-Con 20] 20 meq PO DAILY 11/18/20 01/21/23 History metFORMIN HCL [Glucophage] 1,000 mg PO BID 11/18/20 01/21/23 History Albuterol Sulfate [Albuterol 1 puff PO Q4-6H #8.5 gm 10/03/21 01/21/23 Rx Sulfate Hfa] Verapamil [Isoptin] 40 mg PO TID #90 tab 10/03/21 01/21/23 Rx Apixaban [Eliquis] 5 mg PO BID 01/21/23 01/21/23 History Ipratropium-Albuterol Nebulize 3 ml INHALATION BID PRN 01/21/23 01/21/23 History [Duoneb 0.5 mg-3 mg/3 ml Soln] carvediloL [Coreg*] 12.5 mg PO BID 01/21/23 01/21/23 History HYDROcodone/APAP 7.5-325MG [[place] 1 - 2 tab PO Q6H PRN #32 tab 01/27/23 Rx 7.5-325] Sennosides [Senokot] 2 tab PO DAILY PRN #60 tablet 01/27/23 Rx Allergies Allergy/AdvReac Type Severity Reaction Status Date / Time No Known Allergies Allergy Verified 01/27/23 07:50 Physical Exam Vitals: Vital Signs Temp Pulse Resp BP Pulse Ox 01/27/23 19:58 97.8 F 104 H 16 164/100 97 01/27/23 17:46 101 H 170/103 98 01/27/23 17:31 77 178/104 97 01/27/23 17:16 81 172/94 98 01/27/23 17:02 73 170/86 97 01/27/23 16:46 90 159/111 98 01/27/23 16:31 96 165/91 98 01/27/23 16:16 70 167/101 92 L 01/27/23 16:01 89 180/108 97 01/27/23 15:46 90 155/100 98 01/27/23 15:31 70 160/95 98 01/27/23 15:16 84 175/77 98 01/27/23 15:00 84 16 122/60 01/27/23 14:15 82 16 132/59 01/27/23 13:45 78 16 116/60 97 01/27/23 13:15 85 16 133/60 96 01/27/23 13:00 80 16 134/62 96 01/27/23 12:45 78 16 145/73 96 01/27/23 12:30 79 16 159/85 95 01/27/23 12:15 76 16 153/90 95 01/27/23 12:00 78 16 159/79 95 01/27/23 11:45 79 16 150/83 96 01/27/23 11:30 73 16 152/86 99 01/27/23 11:16 86 16 152/83 96 01/27/23 08:38 68 16 144/88 96 01/27/23 08:33 75 16 159/76 97 01/27/23 08:06 97.4 F L 74 16 161/91 98 Intake and Output 01/27/23 01/27/23 01/27/23 06:59 14:59 22:59 Intake Total 1201 Output Total 500 Balance 701 Intake: IV 1201 Output: Estimated Blood Loss 500 Other: # Voids 0 Weight 138.6 kg Results Labs: Abnormal Lab Results - Last 24 Hours (Table) 01/27/23 01/27/23 01/27/23 Range/Units 08:17 13:08 16:57 POC Glucose (mg/dL) 137 H 193 H 156 H (70-110) mg/dL 01/27/23 Range/Units 20:24 POC Glucose (mg/dL) 146 H (70-110) mg/dL
[2023-01-28] MEDS: ceFAZolin 3 GM in SODIUM CHLORIDE 0.9% 100 ML IVPB SCH (00:12)
[2023-01-28] MEDS: LACTATED RINGERS 1,000 ML IV SCH (01:04)
[2023-01-28] MEDS: SODIUM CHLORIDE 0.9% 1,000 ML IV SCH ×2 (03:48→19:03)
[2023-01-28 06:15] LABS: Glucose,Whole Blood 116 mg/dL (70-110)
[2023-01-28] MEDS: INSULIN ASPART (NovoLOG) 100 UNIT/ML VIAL SQ SCH ×3 (06:25→17:01)
[2023-01-28] MEDS ORDERED: FERROUS SULFATE 325 MG TAB PO SCH (09:00)
[2023-01-28] MEDS: MAGNESIUM OXIDE 400 MG TAB PO SCH (09:35)
[2023-01-28] MEDS: APIXABAN 5 MG TAB PO SCH ×2 (09:35→22:07)
[2023-01-28] MEDS: carvediloL 12.5 MG TAB PO SCH ×2 (09:35→22:44)
[2023-01-28] MEDS: MULTIVITAMINS, THERA 1 EACH TAB PO SCH (09:35)
[2023-01-28] MEDS: ATORVASTATIN 10 MG TAB PO SCH (09:35)
[2023-01-28] MEDS: VERAPAMIL 40 MG TAB PO SCH ×3 (09:35→22:44)
[2023-01-28] MEDS: TAMSULOSIN 0.4 MG CAP.ER.24H PO SCH (09:35)
[2023-01-28] MEDS: metFORMIN 500 MG TAB PO SCH ×2 (09:35→17:12)
[2023-01-28 09:48] LABS: Basophils # (A) 0.01 X 10*3/uL (0.00-0.10); Basophils % (A) 0.1 %; Eosinophils # (A) 0 X 10*3/uL (0.04-0.35); Eosinophils % (A) 0 %; HCT 35.1 % (39.6-50.0); HGB 10.9 g/dL (13.0-17.0); Immature Grans, Automated 0.4 %; Lymphocytes # (A) 0.85 X 10*3/uL (0.90-5.00); Lymphocytes % (A) 8.5 %; MCH 30.4 pg (27.0-32.0); MCHC 31.1 g/dL (32.0-37.0); Monocytes % (A) 12.9 %; NRBC Per 100 WBC 0 /100 WBCS (0.0-0.0); Neutrophils # (A) 7.84 X 10*3/uL (1.80-7.70); Neutrophils % (A) 78.1 %; Platelet Count 353 X 10*3/uL (140-440); RBC 3.58 X 10*6/uL (4.40-5.60); RDW 14.2 % (11.5-14.5); WBC 10.04 X 10*3/uL (4.50-10.00)
--- NOTE | 2023-01-28 10:53 | P.PN ---
Subjective Progress Note Date: 01/28/23 Principal diagnosis: Primary osteoarthritis right hip. Status post total right hip arthroplasty with direct anterior approach. This is a 78-year-old male who is status post total right hip arthroplasty with direct anterior approach. He is stable from an orthopedic standpoint. He is moving slowly with physical therapy. The patient wishes to go home. However, his has concerns about taking care of him at home. He is being evaluated for inpatient rehab. Vital signs are stable. Objective - Vital Signs Vital signs: Vital Signs Temp 98.0 F 01/28/23 08:02 Pulse 87 01/28/23 08:02 Resp 17 01/28/23 08:02 BP 143/76 01/28/23 08:02 Pulse Ox 98 01/28/23 08:06 FiO2 Intake & Output 01/27/23 01/28/23 01/28/23 18:59 06:59 18:59 Intake Total 1201 118 Output Total 500 Balance 701 118 Weight 138.6 kg Intake: IV 1201 Oral 118 Output: Estimated Blood Loss 500 Other: # Voids 0 3 - Exam This is a pleasant 78-year-old male in no acute distress. He is alert and oriented at this time. His is present at bedside. He is sitting up in the chair. Exam of the right hip reveals that his Prevena wound VAC is in place. He has full foot and ankle motion without difficulty or pain. Neurovascular status to the lower extremity is intact. - Labs CBC & Chem 7: 01/28/23 05:41 Labs: Abnormal Lab Results - Last 24 Hours (Table) 01/27/23 01/27/23 01/27/23 Range/Units 13:08 16:57 20:24 WBC (4.50-10.00) X 10*3/uL RBC (4.40-5.60) X 10*6/uL Hgb (13.0-17.0) g/dL Hct (39.6-50.0) % MCV (80.0-97.0) fL MCHC (32.0-37.0) g/dL Neutrophils # (1.80-7.70) X 10*3/uL Lymphocytes # (0.90-5.00) X 10*3/uL Monocytes # (0.20-1.00) X 10*3/uL Eosinophils # (0.04-0.35) X 10*3/uL POC Glucose (mg/dL) 193 H 156 H 146 H (70-110) mg/dL 01/28/23 01/28/23 Range/Units 05:41 06:14 WBC 10.04 H (4.50-10.00) X 10*3/uL RBC 3.58 L (4.40-5.60) X 10*6/uL Hgb 10.9 L (13.0-17.0) g/dL Hct 35.1 L (39.6-50.0) % MCV 98.0 H (80.0-97.0) fL MCHC 31.1 L (32.0-37.0) g/dL Neutrophils # 7.84 H (1.80-7.70) X 10*3/uL Lymphocytes # 0.85 L (0.90-5.00) X 10*3/uL Monocytes # 1.30 H (0.20-1.00) X 10*3/uL Eosinophils # 0 L (0.04-0.35) X 10*3/uL POC Glucose (mg/dL) 116 H (70-110) mg/dL Assessment and Plan (1) Osteoarthritis of right hip Current Visit: Yes Status: Acute Code(s): M16.11 - UNILATERAL PRIMARY OSTEOARTHRITIS, RIGHT HIP SNOMED Code(s): 237320887031673 (2) S/P total right hip arthroplasty Current Visit: Yes Status: Acute Code(s): Z96.641 - PRESENCE OF RIGHT ARTIFICIAL HIP JOINT SNOMED Code(s): 167455741086 Plan: The clinical findings are discussed with the patient. According to physical therapy he is moving slowly and having difficulty with independent ambulation. It is recommended at this point that he go to inpatient rehab. We will continue physical therapy and plan discharge when cleared medically and placement was arranged.
[2023-01-28 11:49] LABS: Glucose,Whole Blood 128 mg/dL (70-110)
--- NOTE | 2023-01-28 12:32 | P.PN ---
Progress Note - Text Progress Note Date: 01/28/23 - Chief Complaint Right hip pain Hospital course This is a pleasant 78-year-old patient who follows with Dr. Truong. Chronic stable medical conditions include atrial fibrillation, diabetes, hypertension, hyperlipidemia, COPD. Patient's had undergone right total hip arthroplasty. Postprocedure pain is controlled. No nausea vomiting. No chest pain. Laying in bed. 01/28/2023: Pain control. Did ambulate. No nausea vomiting. Did tolerate his breakfast. Orthopedics is contemplating inpatient rehab. Discussed with patient and at the bedside. Increase ferrous sulfate to twice a day Active Medications Hydrocodone Bitart/Acetaminophen (Hydrocodone/Apap 7.5-325mg 1 Each Tab) 1 each PO Q6H PRN PRN Reason: Pain Scale 1 to 5 Stop: 02/26/23 11:28 Hydrocodone Bitart/Acetaminophen (Hydrocodone/Apap 7.5-325mg 1 Each Tab) 2 each PO Q6H PRN PRN Reason: Pain Scale 6 to 10 Stop: 02/26/23 11:28 Albuterol Sulfate (Albuterol Hfa Inhaler) 2 puff INHALATION RT-BID PRN PRN Reason: Shortness Of Breath Or Wheezing Apixaban (Apixaban 5 Mg Tab) 5 mg PO BID [facility]; Protocol Stop: 02/27/23 09:01 Last Admin: 01/28/23 09:35 Dose: 5 mg Atorvastatin Calcium (Atorvastatin 10 Mg Tab) 10 mg PO DAILY [facility] Last Admin: 01/28/23 09:35 Dose: 10 mg Carvedilol (Carvedilol 12.5 Mg Tab) 12.5 mg PO BID [facility] Last Admin: 01/28/23 09:35 Dose: 12.5 mg Dextrose/Water (Dextrose 50% Syringe 50 Ml) 25 ml IVP PER PROTOCOL PRN; Protocol PRN Reason: Hypoglycemia Dextrose/Water (Dextrose 50% Syringe 50 Ml) 50 ml IVP PER PROTOCOL PRN; Protocol PRN Reason: Hypoglycemia Ferrous Sulfate (Ferrous Sulfate 325 Mg Tab) 325 mg PO BID-W/MEALS [facility] Hydromorphone HCl (Hydromorphone 0.5 Mg/0.5 Ml Syringe) 0.125 mg IVP Q3HR PRN PRN Reason: Pain Scale 1 to 3 Stop: 02/26/23 11:26 Hydromorphone HCl (Hydromorphone 0.5 Mg/0.5 Ml Syringe) 0.5 mg IVP Q3HR PRN PRN Reason: Pain Scale 7 to 10 Stop: 02/26/23 11:26 Hydromorphone HCl (Hydromorphone 0.5 Mg/0.5 Ml Syringe) 0.25 mg IVP Q3HR PRN PRN Reason: Pain Scale 4 to 6 Stop: 02/26/23 11:26 Lactated Ringer's (Lactated Ringers) 1,000 mls @ 20 mls/hr IV .Q24H [facility] Stop: 02/26/23 06:05 Last Admin: 01/28/23 01:04 Dose: Not Given Sodium Chloride (Saline 0.9%) 1,000 mls @ 70 mls/hr IV .[id number] [facility] Stop: 02/26/23 11:31 Last Admin: 01/28/23 03:48 Dose: 70 mls/hr Insulin Aspart (Insulin Aspart (Novolog) 100 Unit/Ml Vial) 0 unit SQ AC-TID [facility]; Protocol Last Admin: 01/28/23 06:25 Dose: Not Given Lidocaine HCl (Lidocaine 1% (10mg/Ml) For Iv Start) 0.1 ml INTRADERMA PER PROTOCOL PRN PRN Reason: IV Start Stop: 02/26/23 06:05 Magnesium Hydroxide (Magnesium Hydroxide 2,400 Mg/10 Ml Cup) 2,400 mg PO DAILY PRN PRN Reason: Constipation Stop: 02/26/23 11:26 Magnesium Oxide (Magnesium Oxide 400 Mg Tab) 400 mg PO DAILY [facility] Last Admin: 01/28/23 09:35 Dose: 400 mg Metformin HCl (Metformin 500 Mg Tab) 1,000 mg PO PC-BID [facility] Last Admin: 01/28/23 09:35 Dose: 1,000 mg Multivitamins (Multivitamins, Thera 1 Each Tab) 1 each PO DAILY [facility] Last Admin: 01/28/23 09:35 Dose: 1 each Naloxone HCl (Naloxone 0.4 Mg/Ml 1 Ml Vial) 0.2 mg IV Q2M PRN PRN Reason: Opioid Reversal Stop: 02/26/23 11:26 Ondansetron HCl (Ondansetron 4 Mg/2 Ml Vial) 4 mg IVP Q8H PRN PRN Reason: Nausea And Vomiting Stop: 02/26/23 11:26 Senna/Docusate Sodium (Sennosides-Docusate Sodium 1 Each Tab) 2 each PO HS [facility] Stop: 02/26/23 21:01 Last Admin: 01/27/23 20:03 Dose: 2 each Tamsulosin HCl (Tamsulosin 0.4 Mg Cap.Er.24h) 0.4 mg PO PC-BRKFST [facility] Last Admin: 01/28/23 09:35 Dose: 0.4 mg Tiotropium [place] (Tiotropium 2.5 Mcg Inhaler) 2 puff INHALATION RT-DAILY PRN PRN Reason: Shortness Of Breath Or Wheezing Verapamil HCl (Verapamil 40 Mg Tab) 40 mg PO TID [facility] Last Admin: 01/28/23 09:35 Dose: 40 mg Past medical history to include: Atrial fibrillation, diabetes, hypertension, hyperlipidemia, OA, COPD Social history: Lives with his . No smoking or alcohol. Uses a walker. Physical examination: VITAL SIGNS: 98% 87, 17, 143.76, 98% GENERAL: Sitting on recliner comfortable. EYES: Pupils equal. Conjunctiva normal. HEENT: External appearance of nose and ears normal, oral cavity grossly normal. NECK: JVD not raised; masses not palpable. HEART: First and second heart sounds are normal; no edema. LUNGS: Respiratory rate normal; clear to auscultation. ABDOMEN: Soft, nontender, liver spleen not palpable, no masses palpable. PSYCH: Alert and oriented x3; mood and affect normal. MUSCULOSKELETAL:No Clubbing/cyanosis;muscles-grossly intact. Dressing over the right hip incision. OA. INVESTIGATIONS, reviewed in the clinical context: 01/28/2023: White count and hemoglobin 10.9 platelets 353 Previous labs: 01/19/2023: Sodium 136 potassium 4.4 creatinine 0.9 01/15/2023: White count 8.1 hemoglobin 12.1 platelets 256 Assessment and plan: -Right total hip arthroplasty. on eliquis. Continue same for DVT prophylaxis. Pain control. -Morbid obesity BMI 42.6 Weight loss measures -Diabetes mellitus type 2 on oral hypoglycemic Metformin 1000 milligrams twice a day. Follow Accu-Cheks. -Hyperlipidemia Lipitor 10 mg -Acute postprocedure blood loss anemia expected from surgery Ferrous sulfate 324 mg twice a day -Essential hypertension Coreg 12.5 mg by mouth twice a day. Verapamil 40 mg by mouth 3 times a day. Resume Cozaar from tomorrow -Paroxysmal atrial fibrillation Coreg, verapamil. Eliquis to be resumed when okay with orthopedics -COPD DuoNeb when necessary -Primary osteoarthritis Pain medications as needed Increase ferrous sulfate to twice a day. Looking at inpatient rehab. Resume Cozaar tomorrow Thank you Dr. De Oliveira
[2023-01-28 16:56] LABS: Glucose,Whole Blood 124 mg/dL (70-110)
[2023-01-28] MEDS: FERROUS SULFATE 325 MG TAB PO SCH (17:12)
[2023-01-28] MEDS: HYDROcodone/APAP 7.5-325MG 1 EACH TAB PO PRN (17:13)
[2023-01-28] MEDS: PHENAZOPYRIDINE 200 MG TAB PO SCH ×2 (18:48→22:44)
[2023-01-28 20:48] LABS: Glucose,Whole Blood 120 mg/dL (70-110)
[2023-01-28] MEDS: SENNOSIDES-DOCUSATE SODIUM 1 EACH TAB PO SCH (22:44)
[2023-01-29] MEDS: HYDROcodone/APAP 7.5-325MG 1 EACH TAB PO PRN (02:03)
[2023-01-29] MEDS: SODIUM CHLORIDE 0.9% 1,000 ML IV SCH (02:33)
[2023-01-29] MEDS: LACTATED RINGERS 1,000 ML IV SCH (02:34)
[2023-01-29 06:06] LABS: Glucose,Whole Blood 144 mg/dL (70-110)
[2023-01-29] MEDS: FERROUS SULFATE 325 MG TAB PO SCH (07:00)
[2023-01-29] MEDS: INSULIN ASPART (NovoLOG) 100 UNIT/ML VIAL SQ SCH ×2 (07:01→11:51)
[2023-01-29 08:13] VITALS: PULSE 107; RESP 20; TEMP 98.2
[2023-01-29] MEDS: APIXABAN 5 MG TAB PO SCH (08:46)
[2023-01-29] MEDS: MAGNESIUM OXIDE 400 MG TAB PO SCH (08:46)
[2023-01-29] MEDS: TAMSULOSIN 0.4 MG CAP.ER.24H PO SCH (08:46)
[2023-01-29] MEDS: MULTIVITAMINS, THERA 1 EACH TAB PO SCH (08:46)
[2023-01-29] MEDS: metFORMIN 500 MG TAB PO SCH (08:46)
[2023-01-29] MEDS: ATORVASTATIN 10 MG TAB PO SCH (08:46)
[2023-01-29] MEDS: carvediloL 12.5 MG TAB PO SCH (08:46)
[2023-01-29] MEDS: PHENAZOPYRIDINE 200 MG TAB PO SCH (08:47)
[2023-01-29] MEDS: VERAPAMIL 40 MG TAB PO SCH (08:47)
[2023-01-29 11:09] VITALS: BP 118/78
--- NOTE | 2023-01-29 11:21 | P.DS ---
Providers Date of admission: 01/28/23 09:32 Expected date of discharge: 01/29/23 Attending physician: Jann De Oliveira Consults: 01/27/23 11:25 Consult Physician Routine Consulting Provider: José Antonio Packer Consult Reason/Comments: medical management Do you want consulting provider notified?: Yes Primary care physician: Denny Truong - Discharge Diagnosis(es) (1) Osteoarthritis of right hip Current Visit: Yes Status: Acute (2) S/P total right hip arthroplasty Current Visit: Yes Status: Acute Hospital Course: This is a 78-year-old male with known history of degenerative arthritis of the right hip. The patient presented for evaluation as an outpatient. After discussion and consideration patient elects to proceed with total hip arthroplasty. The patient is seen preoperatively by Dr. De Oliveira and medically cleared for surgery by their primary care physician. Patient is admitted to [facility] on 01/27/2023 for total hip arthroplasty. The procedure is performed without complication or sequelae. The patient is doing well postoperatively. Labs and vital signs are stable on day of discharge. On day of discharge patient's hip incision is healing well. There is minimal erythema. There is no drainage noted at this time. There is minimal soft tissue swelling to the hip and thigh. Patient has full foot and ankle motion without difficulty or pain. Calf is soft and nontender to palpation. Neurovascular status to the right lower extremity is intact. Patient is discharged to rehab in good condition. Please see [facility] rec for accurate list of home medications. Plan - Discharge Summary Discharge Rx Participant: No New Discharge Prescriptions: New HYDROcodone/APAP 7.5-325MG [[place] 7.5-325] 1 - 2 tab PO Q6H PRN #32 tab PRN Reason: Pain Sennosides [Senokot] 2 tab PO DAILY PRN #60 tablet PRN Reason: Constipation Tamsulosin [Flomax] 0.4 mg PO PC-BRKFST cap Continue Magnesium Oxide 400 mg PO DAILY Ferrous Sulfate [Iron (65 MG Elemental)] 325 mg PO DAILY Potassium Chloride [Klor-Con 20] 20 meq PO DAILY Atorvastatin Calcium [Lipitor] 10 mg PO DAILY Verapamil [Isoptin] 40 mg PO TID #90 tab Albuterol Sulfate [Albuterol Sulfate Hfa] 1 puff PO Q4-6H #8.5 gm Apixaban [Eliquis] 5 mg PO BID carvediloL [Coreg*] 12.5 mg PO BID Ipratropium-Albuterol Nebulize [Duoneb 0.5 mg-3 mg/3 ml Soln] 3 ml INHALATION BID PRN PRN Reason: sob Changed Losartan [Cozaar] 100 mg PO HS #0 Furosemide [Lasix] 40 mg PO DAILY #0 No Action metFORMIN HCL [Glucophage] 1,000 mg PO BID Multivitamins, Thera [Multivitamin (formulary)] 1 tab PO DAILY Discharge Medication List Atorvastatin Calcium [Lipitor] 10 mg PO DAILY 11/18/20 [History] Ferrous Sulfate [Iron (65 MG Elemental)] 325 mg PO DAILY 11/18/20 [History] Magnesium Oxide 400 mg PO DAILY 11/18/20 [History] Multivitamins, Thera [Multivitamin (formulary)] 1 tab PO DAILY 11/18/20 [History] Potassium Chloride [Klor-Con 20] 20 meq PO DAILY 11/18/20 [History] metFORMIN HCL [Glucophage] 1,000 mg PO BID 11/18/20 [History] Albuterol Sulfate [Albuterol Sulfate Hfa] 1 puff PO Q4-6H #8.5 gm 10/03/21 [Rx] Verapamil [Isoptin] 40 mg PO TID #90 tab 10/03/21 [Rx] Apixaban [Eliquis] 5 mg PO BID 01/21/23 [History] Ipratropium-Albuterol Nebulize [Duoneb 0.5 mg-3 mg/3 ml Soln] 3 ml INHALATION BID PRN 01/21/23 [History] carvediloL [Coreg*] 12.5 mg PO BID 01/21/23 [History] HYDROcodone/APAP 7.5-325MG [[place] 7.5-325] 1 - 2 tab PO Q6H PRN #32 tab 01/27/23 [Rx] Sennosides [Senokot] 2 tab PO DAILY PRN #60 tablet 01/27/23 [Rx] Furosemide [Lasix] 40 mg PO DAILY #0 01/29/23 [Rx] Losartan [Cozaar] 100 mg PO HS #0 01/29/23 [Rx] Tamsulosin [Flomax] 0.4 mg PO PC-BRKFST cap 01/29/23 [Rx] Follow up Appointment(s)/Referral(s): Denny Truong MD [Primary Care Provider] - 1 Week Jann De Oliveira DO [Doctor of Osteopathic Medicine] - 02/06/23 1:45 pm (with Wilma) Activity/Diet/Wound Care/Special Instructions: Weightbearing as tolerated with walker. Leave Prevena wound vac in place for 2 weeks. Please resume Eliquis. Recommend use of compression stockings daily until follow up to help prevent swelling and blood clots. May remove at night before sleeping. Please follow-up with [facility] in 2 weeks and call with any questions or concerns, . Discharge Disposition: TRANSFER TO SNF/ECF
[2023-01-29 11:40] LABS: Glucose,Whole Blood 115 mg/dL (70-110)
--- NOTE | 2023-01-29 14:16 | P.PN ---
Progress Note - Text Progress Note Date: 01/29/23 - Chief Complaint Right hip pain Hospital course This is a pleasant 78-year-old patient who follows with Dr. Truong. Chronic stable medical conditions include atrial fibrillation, diabetes, hypertension, hyperlipidemia, COPD. Patient's had undergone right total hip arthroplasty. Postprocedure pain is controlled. No nausea vomiting. No chest pain. Laying in bed. 01/28/2023: Pain control. Did ambulate. No nausea vomiting. Did tolerate his breakfast. Orthopedics is contemplating inpatient rehab. Discussed with patient and at the bedside. Increase ferrous sulfate to twice a day 01/29/2023: Except red rehab. Some pain at the operative site. No nausea vomiting. Tolerating diet. Did work with therapy. Discussed with patient and at the bedside. Active Medications Hydrocodone Bitart/Acetaminophen (Hydrocodone/Apap 7.5-325mg 1 Each Tab) 1 each PO Q6H PRN PRN Reason: Pain Scale 1 to 5 Stop: 02/26/23 11:28 Last Admin: 01/29/23 02:03 Dose: 1 each Hydrocodone Bitart/Acetaminophen (Hydrocodone/Apap 7.5-325mg 1 Each Tab) 2 each PO Q6H PRN PRN Reason: Pain Scale 6 to 10 Stop: 02/26/23 11:28 Albuterol Sulfate (Albuterol Hfa Inhaler) 2 puff INHALATION RT-BID PRN PRN Reason: Shortness Of Breath Or Wheezing Apixaban (Apixaban 5 Mg Tab) 5 mg PO BID [facility]; Protocol Stop: 02/27/23 09:01 Last Admin: 01/29/23 08:46 Dose: 5 mg Atorvastatin Calcium (Atorvastatin 10 Mg Tab) 10 mg PO DAILY [facility] Last Admin: 01/29/23 08:46 Dose: 10 mg Carvedilol (Carvedilol 12.5 Mg Tab) 12.5 mg PO BID [facility] Last Admin: 01/29/23 08:46 Dose: 12.5 mg Dextrose/Water (Dextrose 50% Syringe 50 Ml) 25 ml IVP PER PROTOCOL PRN; Protocol PRN Reason: Hypoglycemia Dextrose/Water (Dextrose 50% Syringe 50 Ml) 50 ml IVP PER PROTOCOL PRN; Protocol PRN Reason: Hypoglycemia Ferrous Sulfate (Ferrous Sulfate 325 Mg Tab) 325 mg PO BID-W/MEALS [facility] Last Admin: 01/29/23 07:00 Dose: 325 mg Hydromorphone HCl (Hydromorphone 0.5 Mg/0.5 Ml Syringe) 0.125 mg IVP Q3HR PRN PRN Reason: Pain Scale 1 to 3 Stop: 02/26/23 11:26 Hydromorphone HCl (Hydromorphone 0.5 Mg/0.5 Ml Syringe) 0.5 mg IVP Q3HR PRN PRN Reason: Pain Scale 7 to 10 Stop: 02/26/23 11:26 Hydromorphone HCl (Hydromorphone 0.5 Mg/0.5 Ml Syringe) 0.25 mg IVP Q3HR PRN PRN Reason: Pain Scale 4 to 6 Stop: 02/26/23 11:26 Lactated Ringer's (Lactated Ringers) 1,000 mls @ 20 mls/hr IV .Q24H [facility] Stop: 02/26/23 06:05 Last Admin: 01/29/23 02:34 Dose: Not Given Sodium Chloride (Saline 0.9%) 1,000 mls @ 70 mls/hr IV .[id number] [facility] Stop: 02/26/23 11:31 Last Admin: 01/29/23 02:33 Dose: 70 mls/hr Insulin Aspart (Insulin Aspart (Novolog) 100 Unit/Ml Vial) 0 unit SQ AC-TID [facility]; Protocol Last Admin: 01/29/23 11:51 Dose: Not Given Lidocaine HCl (Lidocaine 1% (10mg/Ml) For Iv Start) 0.1 ml INTRADERMA PER PROTOCOL PRN PRN Reason: IV Start Stop: 02/26/23 06:05 Losartan Potassium (Losartan 50 Mg Tab) 100 mg PO [facility] Magnesium Hydroxide (Magnesium Hydroxide 2,400 Mg/10 Ml Cup) 2,400 mg PO DAILY PRN PRN Reason: Constipation Stop: 02/26/23 11:26 Magnesium Oxide (Magnesium Oxide 400 Mg Tab) 400 mg PO DAILY [facility] Last Admin: 01/29/23 08:46 Dose: 400 mg Metformin HCl (Metformin 500 Mg Tab) 1,000 mg PO PC-BID [facility] Last Admin: 01/29/23 08:46 Dose: 1,000 mg Multivitamins (Multivitamins, Thera 1 Each Tab) 1 each PO DAILY [facility] Last Admin: 01/29/23 08:46 Dose: 1 each Naloxone HCl (Naloxone 0.4 Mg/Ml 1 Ml Vial) 0.2 mg IV Q2M PRN PRN Reason: Opioid Reversal Stop: 02/26/23 11:26 Ondansetron HCl (Ondansetron 4 Mg/2 Ml Vial) 4 mg IVP Q8H PRN PRN Reason: Nausea And Vomiting Stop: 02/26/23 11:26 Phenazopyridine HCl (Phenazopyridine 200 Mg Tab) 200 mg PO TID [facility] Stop: 01/30/23 09:01 Last Admin: 01/29/23 08:47 Dose: 200 mg Senna/Docusate Sodium (Sennosides-Docusate Sodium 1 Each Tab) 2 each PO HS [facility] Stop: 02/26/23 21:01 Last Admin: 01/28/23 22:44 Dose: 2 each Tamsulosin HCl (Tamsulosin 0.4 Mg Cap.Er.24h) 0.4 mg PO PC-BRKFST [facility] Last Admin: 01/29/23 08:46 Dose: 0.4 mg Tiotropium [place] (Tiotropium 2.5 Mcg Inhaler) 2 puff INHALATION RT-DAILY PRN PRN Reason: Shortness Of Breath Or Wheezing Verapamil HCl (Verapamil 40 Mg Tab) 40 mg PO TID [facility] Last Admin: 01/29/23 08:47 Dose: 40 mg Past medical history to include: Atrial fibrillation, diabetes, hypertension, hyperlipidemia, OA, COPD Social history: Lives with his . No smoking or alcohol. Uses a walker. Physical examination: VITAL SIGNS: 98.2, 107, 20, 122/72, 94% room air GENERAL: Sitting on recliner comfortable. EYES: Pupils equal. Conjunctiva normal. HEENT: External appearance of nose and ears normal, oral cavity grossly normal. NECK: JVD not raised; masses not palpable. HEART: First and second heart sounds are normal; no edema. LUNGS: Respiratory rate normal; clear to auscultation. ABDOMEN: Soft, nontender, liver spleen not palpable, no masses palpable. PSYCH: Alert and oriented x3; mood and affect normal. MUSCULOSKELETAL:No Clubbing/cyanosis;muscles-grossly intact. Dressing over the right hip incision. OA. INVESTIGATIONS, reviewed in the clinical context: COVID-19: Not detected 01/28/2023: White count and hemoglobin 10.9 platelets 353 Previous labs: 01/19/2023: Sodium 136 potassium 4.4 creatinine 0.9 01/15/2023: White count 8.1 hemoglobin 12.1 platelets 256 Assessment and plan: -Right total hip arthroplasty. on eliquis. Continue same for DVT prophylaxis. Pain control. -Morbid obesity BMI 42.6 Weight loss measures -Diabetes mellitus type 2 on oral hypoglycemic Metformin 1000 milligrams twice a day. Follow Accu-Cheks. -Hyperlipidemia Lipitor 10 mg -Acute postprocedure blood loss anemia expected from surgery Ferrous sulfate 324 mg twice a day -Essential hypertension Coreg 12.5 mg by mouth twice a day. Verapamil 40 mg by mouth 3 times a day. Resume Cozaar from tomorrow -Paroxysmal atrial fibrillation Coreg, verapamil. Eliquis -COPD DuoNeb when necessary -Primary osteoarthritis Pain medications as needed Discussed with patient and . Medications reviewed. Going to rehab today. Thank you Dr. De Oliveira
[2023-01-29] MEDS ORDERED: LOSARTAN 50 MG TAB PO SCH (21:00)
== END 2023-01-29 14:49 ==
LOC: OR 07:18 → 4SSUR 11:16 → OR 01-28 09:32 → 4SSUR 01-28 09:32
PROVIDERS: ADMIT Orthopaedic Surgery; ATTEND Orthopaedic Surgery
DX: M16.11 Unilateral primary osteoarthritis, right hip (principal); I11.0 Hypertensive heart disease with heart failure; I50.9 Heart failure, unspecified; R01.1 Cardiac murmur, unspecified; E11.9 Type 2 diabetes mellitus without complications; E78.5 Hyperlipidemia, unspecified; I48.91 Unspecified atrial fibrillation; R00.2 Palpitations; R45.0 Nervousness; E66.01 Morbid (severe) obesity due to excess calories; Z68.32 Body mass index [BMI] 32.0-32.9, adult; F32.A Depression, unspecified; Z97.3 Presence of spectacles and contact lenses; Z97.2 Presence of dental prosthetic device (complete) (partial); Z98.49 Cataract extraction status, unspecified eye; Z90.49 Acquired absence of other specified parts of digestive tract; Z98.890 Other specified postprocedural states; F17.210 Nicotine dependence, cigarettes, uncomplicated; Z79.01 Long term (current) use of anticoagulants; Z79.899 Other long term (current) drug therapy
CPT/HCPCS: 94760; 97116; 97161; 97530; 97166; 64447; 76942; 86900; 86901; 85025; 86850; 88300; 87635; 73501; 27130; G0378 ×2; C1776; J2250; J0330; J1100; J0690 ×3; J2405; J3010 ×2; J1170 ×2; J2795; J2370; J2704; J2001

== ENCOUNTER 2023-02-23 14:19 | Inpatient (IN) | payer MEDICARE ==
--- NOTE | 2023-02-23 15:04 | ED ---
General Adult HPI - General Chief complaint: Syncope Stated complaint: Leg swelling Time Seen by Provider: 02/23/23 14:19 Source: patient, RN/MD, EMS, RN notes reviewed, old records reviewed Mode of arrival: EMS Limitations: no limitations - History of Present Illness Initial comments: 78-year-old male with recent history of a hip replacement who was in rehab but was sent to [facility] today because of a syncopal episode and shortness of breath. He was found to have evidence of CHF with peripheral edema elevated BNP also did have elevated lactic acid and white blood cell count. Sent here for higher level care further evaluation. Patient does have complains of no shortness of breath no chest pain fevers chills or sweats - Related Data Home Medications Medication Instructions Recorded Confirmed Atorvastatin Calcium [Lipitor] 10 mg PO DAILY 11/18/20 02/23/23 Ferrous Sulfate [Iron (65 MG 325 mg PO DAILY 11/18/20 02/23/23 Elemental)] Magnesium Oxide 400 mg PO DAILY 11/18/20 02/23/23 Multivitamins, Thera [Multivitamin 1 tab PO DAILY 11/18/20 02/23/23 (formulary)] Potassium Chloride [Klor-Con 20] 20 meq PO DAILY 11/18/20 02/23/23 metFORMIN HCL [Glucophage] 1,000 mg PO BID 11/18/20 02/23/23 Apixaban [Eliquis] 5 mg PO BID 01/21/23 02/23/23 Ipratropium-Albuterol Nebulize 3 ml INHALATION RT-QID PRN 01/21/23 02/23/23 [Duoneb 0.5 mg-3 mg/3 ml Soln] carvediloL [Coreg*] 12.5 mg PO BID 01/21/23 02/23/23 ALPRAZolam [Xanax] 0.25 mg PO BID PRN 02/23/23 02/23/23 Acetaminophen Tab [Tylenol Tab] 1,000 mg PO Q6HR PRN 02/23/23 02/23/23 Albuterol Sulfate [Albuterol 1 puff PO RT-TID PRN 02/23/23 02/23/23 Sulfate Hfa] Furosemide [Lasix] 20 mg PO DAILY 02/23/23 02/23/23 Losartan Potassium [Cozaar] 100 mg PO DAILY 02/23/23 02/23/23 Sennosides [Senokot] 16.2 tab PO DAILY PRN 02/23/23 02/23/23 Tamsulosin [Flomax] 0.4 mg PO DAILY 02/23/23 02/23/23 Temazepam [Restoril] 15 mg PO HS PRN 02/23/23 02/23/23 Verapamil HCl [Verapamil ER] 180 mg PO DAILY 02/23/23 02/23/23 Allergies Allergy/AdvReac Type Severity Reaction Status Date / Time No Known Allergies Allergy Verified 01/27/23 07:50 Review of Systems ROS Statement: Those systems with pertinent positive or pertinent negative responses have been documented in the HPI. ROS Other: All systems not noted in ROS Statement are negative. Past Medical History Past Medical History: Atrial Fibrillation, Heart Failure, Diabetes Mellitus, Hyperlipidemia, Hypertension History of Any Multi-Drug Resistant Organisms: None Reported Past Surgical History: Appendectomy, Joint Replacement Additional Past Surgical History / Comment(s): total left hip Past Anesthesia/Blood Transfusion Reactions: No Reported Reaction Additional Past Anesthesia/Blood Transfusion Reaction / Comment(s): no hx blood transfusion Past Psychological History: Depression Smoking Status: Former smoker Past Alcohol Use History: None Reported Past Drug Use History: None Reported - Past Family History Mother Family Medical History: No Reported History Sister(s) Family Medical History: Cancer Additional Family Medical History / Comment(s): breast,eye General Exam - General Exam Comments Initial Comments: Is a well-developed well-nourished awake alert oriented 4 male Limitations: no limitations General appearance: alert, in no apparent distress Head exam: Present: atraumatic, normocephalic, normal inspection Eye exam: Present: normal appearance, PERRL, EOMI. Absent: scleral icterus, conjunctival injection, periorbital swelling ENT exam: Present: normal exam, mucous membranes moist Neck exam: Present: normal inspection, full ROM, other. Absent: tenderness, meningismus, lymphadenopathy Respiratory exam: Present: decreased breath sounds. Absent: respiratory distress, wheezes, rales, rhonchi, stridor Cardiovascular Exam: Present: irregular rhythm. Absent: systolic murmur, diastolic murmur, rubs, gallop, clicks GI/Abdominal exam: Present: soft, normal bowel sounds. Absent: distended, tenderness, guarding, rebound, rigid Extremities exam: Present: full ROM, normal capillary refill, pedal edema (Peripheral edema with stasis changes seen some blistering noted). Absent: tenderness, joint swelling, calf tenderness Back exam: Present: normal inspection Neurological exam: Present: alert, oriented X3, CN II-XII intact Psychiatric exam: Present: normal affect, normal mood Skin exam: Present: warm, dry, intact, normal color. Absent: rash Course Vital Signs 02/23/23 02/23/23 02/23/23 14:26 15:00 15:30 Temperature 98.1 F Pulse Rate 72 75 81 Respiratory 22 21 20 Rate Blood Pressure 128/79 126/78 116/62 O2 Sat by Pulse 96 95 94 L Oximetry 02/23/23 16:00 Temperature Pulse Rate 79 Respiratory 20 Rate Blood Pressure 123/66 O2 Sat by Pulse 95 Oximetry EKG Findings - EKG Results: EKG: interpreted by JERRICA (EKG interpreted by me atrial fibrillation rate of 75 QRS duration 9070 QT since QTC 388/416 borderline right axis deviation poor R- wave progression low-voltage consistent with EKG sent from [facility]) Medical Decision Making - Medical Decision Making I did discuss findings with patient also with Dr. Packer patient be admitted with cardiology consultation syncope chronic atrial fibrillation and CHFWas pt. sent in by a medical professional or institution (, HUEY, SWAGING MACHINE OPERATOR, urgent care, hospital, or residential...) When possible be specific @ -S doctors at [facility] Did you speak to anyone other than the patient for history (EMS, parent, family, police, friend...)? What history was obtained from this source @ -ER physician at [facility] Did you review nursing and triage notes (agree or disagree)? Why? @ -I reviewed and agree with nursing and triage notes Were old charts reviewed (outside hosp., previous admission, EMS record, old EKG, old radiological studies, urgent care reports/EKG's, residential records)? Report findings @ -[facility] charts were reviewed Differential Diagnosis (chest pain, altered mental status, abdominal pain women, abdominal pain men, vaginal bleeding, weakness, fever, dyspnea, syncope, headache, dizziness, GI bleed, back pain, seizure, CVA, palpatations, mental health, musculoskeletal)? @ -Syncope EKG interpreted by me (3pts min.). @ -As above X-rays interpreted by me (1pt min.). @ -As above CT interpreted by me (1pt min.). @ -None done U/S interpreted by me (1pt. min.). @ -None done What testing was considered but not performed or refused? (CT, X-rays, U/S, labs)? Why? @ -None What meds were considered but not given or refused? Why? @ -None Did you discuss the management of the patient with other professionals (professionals i.e. , PA, SWAGING MACHINE OPERATOR, lab, RT, psych nurse, social and political studies professor, fill technician, teacher, press officer, welfare case worker)? Give summary @ -Dr. Packer Was smoking cessation discussed for >3mins.? @ -No Was critical care preformed (if so, how long)? @ -No Were there social determinants of health that impacted care today? How? (Homelessness, low income, unemployed, alcoholism, drug addiction, transportation, low edu. Level, literacy, decrease access to med. care, nursing home, rehab)? @ -No Was there de-escalation of care discussed even if they declined (Discuss DNR or withdrawal of care, Hospice)? DNR status @ -No What co-morbidities impacted this encounter? (DM, HTN, Smoking, COPD, CAD, Cancer, CVA, ARF, Chemo, Hep., AIDS, mental health diagnosis, sleep apnea, morbid obesity)? @ -Chronic atrial fibrillation, heart failure, diabetes, hypertension, hyperlipidemia Was patient admitted / discharged? Hospital course, mention meds given and route, prescriptions, significant lab abnormalities, going to OR and other pertinent info. @ -hospital course Undiagnosed new problem with uncertain prognosis? @ -No Drug Therapy requiring intensive monitoring for toxicity (Heparin, Nitro, Insulin, Cardizem)? @ -No Were any procedures done? @ -No Diagnosis/symptom? @ -Syncope, CHF Acute, or Chronic, or Acute on Chronic? @ -Acute Uncomplicated (without systemic symptoms) or Complicated (systemic symptoms)? @ -Syncopal episode Side effects of treatment? @ -No Exacerbation, Progression, or Severe Exacerbation? @ -No Poses a threat to life or bodily function? How? (Chest pain, [place], IA, pneumonia, PE, COPD, DKA, ARF, appy, cholecystitis, CVA, Diverticulitis, Homicidal, Suicidal, threat to staff... and all critical care pts) @ -Ectopy, CHF - Radiology Data Interpreted by me: Imaging from the other hospital was reviewed and interpreted by me evidence of some increased pulmonary vascular markings. Disposition Clinical Impression: Syncope, CHF (congestive heart failure), Atrial fibrillation, Lactic acidosis, Hypomagnesemia Disposition: ADMITTED IP TO THIS [facility] Condition: Fair Referrals: Denny Truong MD [Primary Care Provider] - 1-2 days Decision Date: 02/23/23 Decision Time: 18:00
[2023-02-23] MEDS ORDERED: TEMAZEPAM 15 MG CAP PO PRN (19:12)
[2023-02-23] MEDS ORDERED: ALBUTEROL HFA INHALER INHALATION PRN (19:12)
[2023-02-23] MEDS ORDERED: SENNOSIDES 8.6 MG TAB PO PRN (19:12)
[2023-02-23] MEDS ORDERED: ACETAMINOPHEN TAB 500 MG TAB PO PRN (19:12)
[2023-02-23] MEDS ORDERED: MAGNESIUM SULFATE-D5W PMX 1 GM in DEXTROSE/WATER 1 100ML.BAG IVPB ONE (19:15)
[2023-02-23] MEDS: FUROSEMIDE 10 MG/ML 4 ML VIAL IV SCH (20:26)
[2023-02-23 21:24] LABS: Glucose,Whole Blood 113 mg/dL (70-110)
[2023-02-23] MEDS: metFORMIN 500 MG TAB PO SCH (21:24)
[2023-02-23] MEDS: carvediloL 12.5 MG TAB PO SCH (21:24)
[2023-02-23] MEDS: APIXABAN 5 MG TAB PO SCH (21:24)
[2023-02-23] MEDS ORDERED: DEXTROSE 50% SYRINGE 50 ML IVP PRN ×2 (23:27)
--- NOTE | 2023-02-23 23:29 | P.HPIM ---
History of Present Illness H&P Date: 02/23/23 Chief Complaint: Syncope Hospital course This is a pleasant 78-year-old patient who follows with Dr. Truong. Chronic stable medical conditions include atrial fibrillation, diabetes, hypertension, hyperlipidemia, COPD. Patient had undergone orthopedic surgery. Dr. De Oliveira on January 27 discharged to [facility] on January 29. Patient was discharged from there recently. Patient's been noticing that is getting increasing short of breath. Increasing lower extremity swelling. Decreased appetite tired. Today while walking patient just felt very weak and he passed out for a short time. No chest pain. No dizziness. No seizure activity. Has been feeling tired and rundown. [place] to be in CHF. His started on IV Lasix Review of systems: GEN.: Tired, decreased appetite EYES: None HEENT: None NECK: None RESPIRATORY: Short of breath CARDIOVASCULAR: Edema GASTROINTESTINAL: None GENITOURINARY: None MUSCULOSKELETAL: None LYMPHATICS: None HEMATOLOGICAL: None PSYCHIATRY: None NEUROLOGICAL: Using a walker Past medical history to include: Atrial fibrillation, diabetes, hypertension, hyperlipidemia, OA, COPD Social history: Lives with his . No smoking or alcohol. Uses a walker. Physical examination: VITAL SIGNS: 98.1, 72, 22, 128 with 79, 96% room air GENERAL: BMI 42.8, reclining in bed some shortness of breath EYES: Pupils equal. Conjunctiva normal. HEENT: External appearance of nose and ears normal, oral cavity grossly normal. NECK: JVD raised; masses not palpable. HEART: First and second heart sounds are normal; edema present. LUNGS: Respiratory rate normal; no basal crackles ABDOMEN: Soft, nontender, liver spleen not palpable, no masses palpable. PSYCH: Alert and oriented x3; mood and affect normal. MUSCULOSKELETAL OA. INVESTIGATIONS, reviewed in the clinical context: Labs pending Assessment and plan: -Acute congestive heart failure exacerbation. Fluid restriction 1500 mL daily. Strict I's and O's. 2-D echocardiogram. -Morbid obesity BMI 42.8 Weight loss measures -Diabetes mellitus type 2 on oral hypoglycemic Metformin 1000 milligrams twice a day. Follow Accu-Cheks. -Hyperlipidemia Lipitor 10 mg -BPH Flomax -Essential hypertension Coreg 12.5 mg by mouth twice a day. Verapamil 40 mg by mouth 3 times a day. Cozaar 100 -Paroxysmal atrial fibrillation Coreg, verapamil. Eliquis -COPD DuoNeb when necessary -Primary osteoarthritis Pain medications as needed Discussed with patient. 2-D echocardiogram. Cartilage E consulted. Past Medical History Past Medical History: Atrial Fibrillation, Heart Failure, Diabetes Mellitus, Hyperlipidemia, Hypertension History of Any Multi-Drug Resistant Organisms: None Reported Past Surgical History: Appendectomy, Joint Replacement Additional Past Surgical History / Comment(s): total left hip Past Anesthesia/Blood Transfusion Reactions: No Reported Reaction Additional Past Anesthesia/Blood Transfusion Reaction / Comment(s): no hx blood transfusion Past Psychological History: Depression Smoking Status: Former smoker Past Alcohol Use History: None Reported Additional Past Alcohol Use History / Comment(s): quit smoking years ago, smoked very short time Past Drug Use History: None Reported - Past Family History Mother Family Medical History: No Reported History Sister(s) Family Medical History: Cancer Additional Family Medical History / Comment(s): breast,eye Medications and Allergies Home Medications Medication Instructions Recorded Confirmed Type Atorvastatin Calcium [Lipitor] 10 mg PO DAILY 11/18/20 02/23/23 History Ferrous Sulfate [Iron (65 MG 325 mg PO DAILY 11/18/20 02/23/23 History Elemental)] Magnesium Oxide 400 mg PO DAILY 11/18/20 02/23/23 History Multivitamins, Thera [Multivitamin 1 tab PO DAILY 11/18/20 02/23/23 History (formulary)] Potassium Chloride [Klor-Con 20] 20 meq PO DAILY 11/18/20 02/23/23 History metFORMIN HCL [Glucophage] 1,000 mg PO BID 11/18/20 02/23/23 History Apixaban [Eliquis] 5 mg PO BID 01/21/23 02/23/23 History Ipratropium-Albuterol Nebulize 3 ml INHALATION RT-QID PRN 01/21/23 02/23/23 History [Duoneb 0.5 mg-3 mg/3 ml Soln] carvediloL [Coreg*] 12.5 mg PO BID 01/21/23 02/23/23 History ALPRAZolam [Xanax] 0.25 mg PO BID PRN 02/23/23 02/23/23 History Acetaminophen Tab [Tylenol Tab] 1,000 mg PO Q6HR PRN 02/23/23 02/23/23 History Albuterol Sulfate [Albuterol 1 puff PO RT-TID PRN 02/23/23 02/23/23 History Sulfate Hfa] Furosemide [Lasix] 20 mg PO DAILY 02/23/23 02/23/23 History Losartan Potassium [Cozaar] 100 mg PO DAILY 02/23/23 02/23/23 History Sennosides [Senokot] 16.2 tab PO DAILY PRN 02/23/23 02/23/23 History Tamsulosin [Flomax] 0.4 mg PO DAILY 02/23/23 02/23/23 History Temazepam [Restoril] 15 mg PO HS PRN 02/23/23 02/23/23 History Verapamil HCl [Verapamil ER] 180 mg PO DAILY 02/23/23 02/23/23 History Allergies Allergy/AdvReac Type Severity Reaction Status Date / Time No Known Allergies Allergy Verified 01/27/23 07:50 Physical Exam Vitals: Vital Signs Temp Pulse Pulse Resp BP BP Pulse Ox 02/23/23 21:20 98.0 F 100 19 129/70 94 L 02/23/23 20:00 96 22 150/85 94 L 02/23/23 19:00 92 25 H 143/86 95 02/23/23 18:00 85 21 134/79 96 02/23/23 17:00 89 22 124/83 97 02/23/23 16:00 79 20 123/66 95 02/23/23 15:30 81 20 116/62 94 L 02/23/23 15:00 75 21 126/78 95 02/23/23 14:26 98.1 F 72 22 128/79 96 Intake and Output 02/23/23 02/23/23 02/24/23 14:59 22:59 06:59 Output Total 450 Balance -450 Output: Urine 450 Other: Voiding Method External Catheter Weight 139.253 kg 139.253 kg Results Labs: Abnormal Lab Results - Last 24 Hours (Table) 02/23/23 Range/Units 21:21 POC Glucose (mg/dL) 113 H (70-110) mg/dL Thrombosis Risk Factor Assmnt - Choose All That Apply Any of the Below Risk Factors Present?: Yes Each Factor Represents 1 point: Obesity (BMI >25) Each Risk Factor Represents 3 Points: Age 75 years or older Thrombosis Risk Factor Assessment Total Risk Factor Score: 4 Thrombosis Risk Factor Assessment Level: Moderate Risk
[2023-02-24] MEDS: ALPRAZolam 0.25 MG TAB PO PRN ×2 (01:30→23:40)
[2023-02-24] MEDS: INSULIN ASPART (NovoLOG) 100 UNIT/ML VIAL SQ SCH ×3 (05:52→16:24)
[2023-02-24] MEDS: FUROSEMIDE 10 MG/ML 4 ML VIAL IV SCH (05:54)
[2023-02-24 05:55] LABS: Glucose,Whole Blood 119 mg/dL (70-110)
[2023-02-24] MEDS: FUROSEMIDE 10 MG/ML 2 ML VIAL IV SCH ×3 (08:49→23:36)
[2023-02-24] MEDS: metFORMIN 500 MG TAB PO SCH ×2 (08:49→19:59)
[2023-02-24] MEDS: MAGNESIUM OXIDE 400 MG TAB PO SCH (08:49)
[2023-02-24] MEDS: FERROUS SULFATE 325 MG TAB PO SCH (08:49)
[2023-02-24] MEDS: carvediloL 12.5 MG TAB PO SCH ×2 (08:49→19:58)
[2023-02-24] MEDS: TAMSULOSIN 0.4 MG CAP.ER.24H PO SCH (08:49)
[2023-02-24] MEDS: LOSARTAN 50 MG TAB PO SCH (08:49)
[2023-02-24] MEDS: APIXABAN 5 MG TAB PO SCH ×2 (08:49→19:58)
[2023-02-24] MEDS: MULTIVITAMINS, THERA 1 EACH TAB PO SCH (08:49)
[2023-02-24] MEDS: POTASSIUM CHLORIDE ER 20 MEQ TAB.ER PO SCH (08:49)
[2023-02-24] MEDS: ATORVASTATIN 10 MG TAB PO SCH (08:49)
[2023-02-24] MEDS ORDERED: FUROSEMIDE 20 MG TAB PO SCH (09:00)
[2023-02-24] MEDS ORDERED: VERAPAMIL SR 180 MG TABLET.ER PO SCH (09:00)
[2023-02-24] MEDS: IPRATROPIUM-ALBUTEROL 3 ML NEB INHALATION PRN ×2 (09:09→20:39)
[2023-02-24 09:17] LABS: Basophils % (A) 0 %; Eosinophils # (A) 0.2 k/uL (0-0.7); Eosinophils % (A) 1 %; HCT 32.8 % (39.0-53.0); HGB 10.8 gm/dL (13.0-17.5); Lymphocytes # (A) 0.9 k/uL (1.0-4.8); Lymphocytes % (A) 7 %; MCH 30.4 pg (25.0-35.0); MCV 91.9 fL (80.0-100.0); Monocytes # (A) 0.8 k/uL (0-1.0); Monocytes % (A) 6 %; Neutrophils # (A) 10.6 k/uL (1.3-7.7); Neutrophils % (A) 84 %; Platelet Count 366 k/uL (150-450); RBC 3.57 m/uL (4.30-5.90); RDW 14.1 % (11.5-15.5); WBC 12.7 k/uL (3.8-10.6)
[2023-02-24 09:35] LABS: ALT 31 U/L (4-49); AST 29 U/L (17-59); African American GFR (CKD) >90 (>60 ml/min/1.73 sqM); Albumin 3.2 g/dL (3.5-5.0); Alkaline Phosphatase 166 U/L (38-126); Anion Gap 7 mmol/L; Blood Urea Nitrogen 20 mg/dL (9-20); Calcium 8.4 mg/dL (8.4-10.2); Carbon Dioxide 32 mmol/L (22-30); Chloride 96 mmol/L (98-107); Glucose 130 mg/dL (74-99); Magnesium 1.4 mg/dL (1.6-2.3); Non-African American GFR(CKD) 86 (>60 ml/min/1.73 sqM); Potassium 4.2 mmol/L (3.5-5.1); Sodium 135 mmol/L (137-145); Total Bilirubin 0.6 mg/dL (0.2-1.3); Total Protein 5.9 g/dL (6.3-8.2)
[2023-02-24 11:20] VITALS: BMI 41.1
[2023-02-24 11:49] LABS: Glucose,Whole Blood 118 mg/dL (70-110)
--- NOTE | 2023-02-24 12:10 | P.CRDCN ---
History of Present Illness Consult date: 02/24/23 Consult reason: atrial fibrillation (Chronic), congestive heart failure History of present illness: HISTORY OF PRESENTING ILLNESS This is a 78-year-old male patient of Dr. Asher with a past medical history significant for chronic persistent atrial fibrillation on Eliquis, dyslipidemia, hypertension, type 2 diabetes, cardiomyopathy with an EF of 47% on echo 11/2020 with improvement in EF. We have been asked to see in consultation for CHF and chronic atrial fibrillation. Patient was recently hospitalized and discharged on 01/29 following a right hip arthroplasty and went to subacute rehab in [place] just returning home on . He had a syncopal episode along with shortness of breath went to [facility] and was subsequently transferred to [facility]. He states he could feel the episode coming on. He was sitting at a table having coffee and passed out. No injuries were noted at the time No loss of bowel or bladder. BP at [facility] was 97/72 and heart rate 62. He does have significant lower extremity edema bilaterally. Telemetry is atrial fibrillation in the 90s. Laboratory studies at [facility] revealed lactic acid 4.4. WBC 13.8, hemoglobin 10.2, platelet count 368. Sodium 138, potassium 4.7, chloride 102, CO2 27, glucose 148, BUN 19 and creatinine 0.9. Alkaline phosphatase 185 on other liver function tests within normal limits. Magnesium 1.3. Phosphorus 3.1. Troponin negative. BNP 1310. EKG at [facility] was atrial fibrillation with controlled rate. Chest x-ray reveals cardiomegaly without evidence of acu te cardio pulmonary disease process. Correlate with serum BNP for congestive heart failure EKG reveals atrial fibrillation with heart rate 75. Echocardiogram in the office 08/20/2021 revealed EF of 5560 percent ascending aorta is enlarged, mild to moderate mitral regurgitation, mild tricuspid regu rgitation, moderately increased pulmonary artery systolic pressure 54 mmHg Dobutamine stress echo in the office 12/2020 revealed no evidence of stress- induced ischemia, mild global hypokinesis suggestive of nonischemic cardiomyopathy Chest xray report revealed mild left lower lobe pneumonia Laboratory reviewed, WBC 12.5, hemoglobin 12.4, platelets 384, INR 1.3, sodium 132, potassium 4.3, BUN 12, serum creatinine 0.7, troponin negative 1, proBNP 461, cold. PCI and influenza PCR negative Home cardiac medications include eliquis 5 mg twice daily, atorvastatin 10 mg daily, carvedilol 12.5 mg twice a day, Lasix 20 mg daily, losartan 100 mg daily, magnesium oxide, potassium chloride, verapamil 180 mg daily REVIEW OF SYSTEMS At the time of my exam: CONSTITUTIONAL: No fever and chills CARDIOVASCULAR: Positive shortness of breath Denies chest pain, orthopnea, PND or palpitations. +Syncope RESPIRATORY: No cough GASTROINTESTINAL: Denies abdominal pain, diarrhea, constipation, nausea or vomiting. MUSCULOSKELETAL: Denies myalgias. Recent falls. NEUROLOGIC: Denies numbness, tingling, headacbe or weakness. ENDOCRINE: Denies fatigue, weight change, polydipsia or polyurina. GENITOURINARY: Denies burning, hematuria or urgency with micturation. HEMATOLOGIC: Denies history of anemia or bleeding. PHYSICAL EXAMINATION Vitals reviewed CONSTITUTIONAL: No apparent distress. HEENT: Head is normocephalic. Pupils are equal, round. Sclerae anicteric. Mucous membranes of the mouth are moist. No JVD. No carotid bruit. CHEST EXAMINATION: Lungs are diminished bilaterally to auscultation. No chest wall tenderness is noted on palpation or with deep breathing. HEART EXAMINATION: Irregular and tachycardic rate and rhythm. S1, S2 heard. Systolic ejection murmur at apex. ABDOMEN: Soft, nontender. Positive bowel sounds. EXTREMITIES: 2+ peripheral pulses, moderate severe bilateral lower extremity edema, kaiser wraps to bilat legs. SKIN: Warm, dry NEUROLOGIC EXAMINATION: Patient is awake, alert and oriented x3. ASSESSMENT Syncopal episode Recent right hip arthroplasty Lactic acidosis Hypomagnesemia status post replacement Chronic persistent atrial fibrillation with controlled rate on eliquis Acute on chronic diastolic heart failure Dyslipidemia Chronic lower extremity edema History of hypertension Type 2 diabetes History of non-ischemic cardiomyopathy, with improved EF PLAN Continue patient's home cardiac medications Patient will be started on IV Lasix 20 mg every 8 hours, monitor I&O, daily weights, electrolytes and renal function Discontinue verapamil Obtain carotid ultrasound Obtain orthostatic vital signs Obtain 2-D echocardiogram Further recommendations patient progresses Thank you kindly for this consultation. Nurse Practitioner note has been reviewed, I agree with a documented findings and plan of care. Patient was seen and examined. Past Medical History Past Medical History: Atrial Fibrillation, Heart Failure, Diabetes Mellitus, Hyperlipidemia, Hypertension History of Any Multi-Drug Resistant Organisms: None Reported Past Surgical History: Appendectomy, Joint Replacement Additional Past Surgical History / Comment(s): total left hip Past Anesthesia/Blood Transfusion Reactions: No Reported Reaction Additional Past Anesthesia/Blood Transfusion Reaction / Comment(s): no hx blood transfusion Past Psychological History: Depression Smoking Status: Former smoker Past Alcohol Use History: None Reported Additional Past Alcohol Use History / Comment(s): quit smoking years ago, smoked very short time Past Drug Use History: None Reported - Past Family History Mother Family Medical History: No Reported History Sister(s) Family Medical History: Cancer Additional Family Medical History / Comment(s): breast,eye Medications and Allergies Home Medications Medication Instructions Recorded Confirmed Type Atorvastatin Calcium [Lipitor] 10 mg PO DAILY 11/18/20 02/23/23 History Ferrous Sulfate [Iron (65 MG 325 mg PO DAILY 11/18/20 02/23/23 History Elemental)] Magnesium Oxide 400 mg PO DAILY 11/18/20 02/23/23 History Multivitamins, Thera [Multivitamin 1 tab PO DAILY 11/18/20 02/23/23 History (formulary)] Potassium Chloride [Klor-Con 20] 20 meq PO DAILY 11/18/20 02/23/23 History metFORMIN HCL [Glucophage] 1,000 mg PO BID 11/18/20 02/23/23 History Apixaban [Eliquis] 5 mg PO BID 01/21/23 02/23/23 History Ipratropium-Albuterol Nebulize 3 ml INHALATION RT-QID PRN 01/21/23 02/23/23 History [Duoneb 0.5 mg-3 mg/3 ml Soln] carvediloL [Coreg*] 12.5 mg PO BID 01/21/23 02/23/23 History ALPRAZolam [Xanax] 0.25 mg PO BID PRN 02/23/23 02/23/23 History Acetaminophen Tab [Tylenol Tab] 1,000 mg PO Q6HR PRN 02/23/23 02/23/23 History Albuterol Sulfate [Albuterol 1 puff PO RT-TID PRN 02/23/23 02/23/23 History Sulfate Hfa] Furosemide [Lasix] 20 mg PO DAILY 02/23/23 02/23/23 History Losartan Potassium [Cozaar] 100 mg PO DAILY 02/23/23 02/23/23 History Sennosides [Senokot] 16.2 tab PO DAILY PRN 02/23/23 02/23/23 History Tamsulosin [Flomax] 0.4 mg PO DAILY 02/23/23 02/23/23 History Temazepam [Restoril] 15 mg PO HS PRN 02/23/23 02/23/23 History Verapamil HCl [Verapamil ER] 180 mg PO DAILY 02/23/23 02/23/23 History Allergies Allergy/AdvReac Type Severity Reaction Status Date / Time No Known Allergies Allergy Verified 01/27/23 07:50 Physical Exam Vitals: Vital Signs Temp Pulse Pulse Resp BP BP Pulse Ox 02/24/23 04:00 97.9 F 95 18 128/77 95 02/23/23 23:53 98.1 F 88 18 117/62 96 02/23/23 21:20 98.0 F 100 19 129/70 94 L 02/23/23 20:00 96 22 150/85 94 L 02/23/23 19:00 92 25 H 143/86 95 02/23/23 18:00 85 21 134/79 96 02/23/23 17:00 89 22 124/83 97 02/23/23 16:00 79 20 123/66 95 02/23/23 15:30 81 20 116/62 94 L 02/23/23 15:00 75 21 126/78 95 02/23/23 14:26 98.1 F 72 22 128/79 96 Intake and Output 02/23/23 02/24/23 02/24/23 22:59 06:59 14:59 Intake Total 180 Output Total 948 773 1221 Balance -450 -500 -1120 Intake: Oral 180 Output: Urine 980 778 5011 Other: Voiding Method External Catheter External Catheter Weight 139.253 kg 133.6 kg Results 02/24/23 08:01 02/24/23 08:01 Current Medications Generic Name Dose Route Start Last Admin Trade Name Freq PRN Reason Stop Dose Admin Acetaminophen 1,000 mg 02/23/23 19:12 Acetaminophen Tab 500 Mg Tab PO Q6HR PRN Pain or Fever > 100.5 Albuterol/Ipratropium 3 ml 02/23/23 19:12 Ipratropium-Albuterol 3 Ml Neb INHALATION RT-QID PRN Shortness Of Breath Alprazolam 0.25 mg 02/23/23 19:12 02/24/23 01:30 Alprazolam 0.25 Mg Tab PO 0.25 mg BID PRN Administration Anxiety Apixaban 5 mg 02/23/23 21:00 02/23/23 21:24 Apixaban 5 Mg Tab PO 5 mg BID [facility] Administration Protocol Atorvastatin Calcium 10 mg 02/24/23 09:00 Atorvastatin 10 Mg Tab PO DAILY [facility] Carvedilol 12.5 mg 02/23/23 21:00 02/23/23 21:24 Carvedilol 12.5 Mg Tab PO 12.5 mg BID [facility] Administration Dextrose/Water 25 ml 02/23/23 23:27 Dextrose 50% Syringe 50 Ml IVP PER PROTOCOL PRN Hypoglycemia Protocol Dextrose/Water 50 ml 02/23/23 23:27 Dextrose 50% Syringe 50 Ml IVP PER PROTOCOL PRN Hypoglycemia Protocol Ferrous Sulfate 325 mg 02/24/23 09:00 Ferrous Sulfate 325 Mg Tab PO DAILY [facility] Furosemide 20 mg 02/24/23 08:15 Furosemide 10 Mg/Ml 2 Ml Vial IV Q8HR [facility] Insulin Aspart 0 unit 02/24/23 07:30 02/24/23 05:52 Insulin Aspart (Novolog) 100 Unit/Ml Vial SQ Not Given AC-TID [facility] Protocol Losartan Potassium 100 mg 02/24/23 09:00 Losartan 50 Mg Tab PO DAILY [facility] Magnesium Oxide 400 mg 02/24/23 09:00 Magnesium Oxide 400 Mg Tab PO DAILY [facility] Metformin HCl 1,000 mg 02/23/23 21:00 02/23/23 21:24 Metformin 500 Mg Tab PO 1,000 mg BID [facility] Administration Multivitamins 1 each 02/24/23 09:00 Multivitamins, Thera 1 Each Tab PO DAILY [facility] Potassium Chloride 20 meq 02/24/23 09:00 Potassium Chloride Er 20 Meq Tab.Er PO DAILY [facility] Senna 17.2 mg 02/23/23 19:12 Sennosides 8.6 Mg Tab PO DAILY PRN Constipation Tamsulosin HCl 0.4 mg 02/24/23 09:00 Tamsulosin 0.4 Mg Cap.Er.24h PO DAILY [facility] Temazepam 15 mg 02/23/23 19:12 Temazepam 15 Mg Cap PO HS PRN Insomnia Intake and Output 02/23/23 02/24/23 02/24/23 22:59 06:59 14:59 Intake Total 180 Output Total 516 036 6572 Balance -817 -500 -1120 Intake: Oral 180 Output: Urine 474 023 2834 Other: Voiding Method External Catheter External Catheter Weight 139.253 kg 133.6 kg
[2023-02-24 16:17] LABS: Glucose,Whole Blood 128 mg/dL (70-110)
--- NOTE | 2023-02-24 17:17 | CA ---
Transthoracic Echo Report Name: Harvey Acosta Age: 78 Gender: M : 1945 Exam Date: 02/24/2023 08:22 Exam Location: [place] [facility] Ht (in): 71 Wt (lb): 294 Ordering Physician: José Antonio Packer MD Attending/Referring Phys: Pin Inserter Candelaria Noe RDCS Procedure CPT: Indications: chf Cardiac Hx: Technical Quality: Technically difficult study Contrast 1: Lumason Total Dose (mL): 5 Contrast 2: Total Dose (mL): MEASUREMENTS (Male / Female) Normal Values 2D ECHO LV Diastolic Diameter PLAX 4.9 cm 4.2 - 5.9 / 3.9 - 5.3 cm LV Systolic Diameter PLAX 3.5 cm IVS Diastolic Thickness 1.3 cm 0.6 - 1.0 / 0.6 - 0.9 cm LVPW Diastolic Thickness 1.5 cm 0.6 - 1.0 / 0.6 - 0.9 cm LV Relative Wall Thickness 0.6 RV Internal Dim ED PLAX 3.5 cm LA Volume 67.5 cm??? 18 - 58 / 22 - 52 cm??? M-MODE Aortic Root Diameter MM 3.4 cm LA Systolic Diameter MM 5.3 cm LA Ao Ratio MM 1.5 AV Cusp Separation MM 2.3 cm DOPPLER AV Peak Velocity 116.3 cm/s AV Peak Gradient 5.4 mmHg AV Mean Velocity 85.5 cm/s AV Mean Gradient 3.2 mmHg AV Velocity Time Integral 21.8 cm LVOT Peak Velocity 99.6 cm/s LVOT Peak Gradient 4.0 mmHg LVOT Velocity Time Integral 18.3 cm FINDINGS Left Ventricle Mildly increased left ventricular wall thickness. Left ventricular cavity size normal. Left ventricular ejection fraction is estimated at 45-50 %. Apical lateral and apical anterior wall hypokinetic. Mid anterrior hypokinesis. Abnormal (paradoxical) septal motion. Right Ventricle Mild right ventricular dilatation. Right ventricular systolic pressure within normal limits. Right Atrium Normal right atrial size. Left Atrium Mildly increased left atrial volume. Mildly increased left atrial area. Mitral Valve Structurally normal mitral valve. Mild mitral regurgitation. Aortic Valve No aortic valve stenosis or regurgitation. Tricuspid Valve Trace to mild tricuspid regurgitation. Pulmonic Valve Pulmonic valve not well visualized. Pericardium No pericardial effusion. Aorta Normal size aortic root and proximal ascending aorta. CONCLUSIONS Reduced LV systolic function ejection fraction 45% Atypical anterior and apical lateral wall hypokinesis Previewed by: Dr. Shiraz Joyce MD (Electronically Signed) Final Date: 24 February 2023 17:17
--- NOTE | 2023-02-24 19:02 | P.PN ---
Progress Note - Text Progress Note Date: 02/24/23 Chief Complaint: Syncope Hospital course This is a pleasant 78-year-old patient who follows with Dr. Truong. Chronic stable medical conditions include atrial fibrillation, diabetes, hypertension, hyperlipidemia, COPD. Patient had undergone orthopedic surgery. Dr. De Oliveira on January 27 discharged to [facility] on January 29. Patient was discharged from there recently. Patient's been noticing that is getting increasing short of breath. Increasing lower extremity swelling. Decreased appetite tired. Today while walking patient just felt very weak and he passed out for a short time. No chest pain. No dizziness. No seizure activity. Has been feeling tired and rundown. [place] to be in CHF. His started on IV Lasix Admitted with acute CHF exacerbation. 02/24/2023: Currently on IV Lasix 20 mg every 8. About 3 L in negative fluid balance. Also fluid restriction. Discussed with the patient and at the bedside. Per the at the last 2 weeks significant lower extremity fluid retention. Patient has also [place] wrap lower extremity. Eating fair. Breathing better. Active Medications Acetaminophen (Acetaminophen Tab 500 Mg Tab) 1,000 mg PO Q6HR PRN PRN Reason: Pain or Fever > 100.5 Albuterol/Ipratropium (Ipratropium-Albuterol 3 Ml Neb) 3 ml INHALATION RT-QID PRN PRN Reason: Shortness Of Breath Last Admin: 02/24/23 09:09 Dose: 3 ml Alprazolam (Alprazolam 0.25 Mg Tab) 0.25 mg PO BID PRN PRN Reason: Anxiety Last Admin: 02/24/23 01:30 Dose: 0.25 mg Apixaban (Apixaban 5 Mg Tab) 5 mg PO BID [facility]; Protocol Last Admin: 02/24/23 08:49 Dose: 5 mg Atorvastatin Calcium (Atorvastatin 10 Mg Tab) 10 mg PO DAILY [facility] Last Admin: 02/24/23 08:49 Dose: 10 mg Carvedilol (Carvedilol 12.5 Mg Tab) 12.5 mg PO BID [facility] Last Admin: 02/24/23 08:49 Dose: 12.5 mg Dextrose/Water (Dextrose 50% Syringe 50 Ml) 25 ml IVP PER PROTOCOL PRN; Protocol PRN Reason: Hypoglycemia Dextrose/Water (Dextrose 50% Syringe 50 Ml) 50 ml IVP PER PROTOCOL PRN; Protocol PRN Reason: Hypoglycemia Ferrous Sulfate (Ferrous Sulfate 325 Mg Tab) 325 mg PO DAILY [facility] Last Admin: 02/24/23 08:49 Dose: 325 mg Furosemide (Furosemide 10 Mg/Ml 2 Ml Vial) 20 mg IV Q8HR [facility] Last Admin: 02/24/23 16:32 Dose: 20 mg Insulin Aspart (Insulin Aspart (Novolog) 100 Unit/Ml Vial) 0 unit SQ AC-TID [facility]; Protocol Last Admin: 02/24/23 16:24 Dose: Not Given Losartan Potassium (Losartan 50 Mg Tab) 100 mg PO DAILY [facility] Last Admin: 02/24/23 08:49 Dose: 100 mg Magnesium Oxide (Magnesium Oxide 400 Mg Tab) 400 mg PO DAILY [facility] Last Admin: 02/24/23 08:49 Dose: 400 mg Metformin HCl (Metformin 500 Mg Tab) 1,000 mg PO BID [facility] Last Admin: 02/24/23 08:49 Dose: 1,000 mg Multivitamins (Multivitamins, Thera 1 Each Tab) 1 each PO DAILY [facility] Last Admin: 02/24/23 08:49 Dose: 1 each Potassium Chloride (Potassium Chloride Er 20 Meq Tab.Er) 20 meq PO DAILY [facility] Last Admin: 02/24/23 08:49 Dose: 20 meq Senna (Sennosides 8.6 Mg Tab) 17.2 mg PO DAILY PRN PRN Reason: Constipation Tamsulosin HCl (Tamsulosin 0.4 Mg Cap.Er.24h) 0.4 mg PO DAILY [facility] Last Admin: 02/24/23 08:49 Dose: 0.4 mg Temazepam (Temazepam 15 Mg Cap) 15 mg PO HS PRN PRN Reason: Insomnia Past medical history to include: Atrial fibrillation, diabetes, hypertension, hyperlipidemia, OA, COPD Social history: Lives with his . No smoking or alcohol. Uses a walker. Physical examination: VITAL SIGNS: 97.6, 100, 17, 1 23 x 60, 94% room air GENERAL: BMI 42.8, up in a recliner. Breathing better. EYES: Pupils equal. Conjunctiva normal. HEENT: External appearance of nose and ears normal, oral cavity grossly normal. NECK: JVD raised; masses not palpable. HEART: First and second heart sounds are normal; edema present. LUNGS: Respiratory rate normal; no basal crackles ABDOMEN: Soft, nontender, liver spleen not palpable, no masses palpable. PSYCH: Alert and oriented x3; mood and affect normal. MUSCULOSKELETAL OA. INVESTIGATIONS, reviewed in the clinical context: White count 12.7 hemoglobin 10.8 platelets 366 sodium 135 potassium 4.2 creatinine 0.79 EKG tracing personally reviewed by me-atrial fibrillation rate 75 2-D echocardiogram: EF 45-50%. Apical, lateral, apical anterior wall hypokinetic. Assessment and plan: -Acute congestive heart failure from systolic and diastolic dysfunction. EF 45%.: Slow to respond Fluid restriction 1500 mL daily. Strict I's and O's. IV Lasix 20 mg every 8.. -Morbid obesity BMI 42.8 Weight loss measures -Diabetes mellitus type 2 on oral hypoglycemic Metformin 1000 milligrams twice a day. Follow Accu-Cheks. -Hyperlipidemia Lipitor 10 mg -BPH Flomax -Essential hypertension Coreg 12.5 mg by mouth twice a day. Cozaar 100 milligrams daily -Persistent atrial fibrillation, rate controlled Coreg, . Eliquis -COPD DuoNeb when necessary -Primary osteoarthritis Pain medications as needed Follow lites closely. I O's. Discussed with the patient at the bedside. Activity as tolerated.
[2023-02-24 19:56] LABS: Glucose,Whole Blood 128 mg/dL (70-110)
[2023-02-25 05:51] LABS: Glucose,Whole Blood 117 mg/dL (70-110)
[2023-02-25] MEDS: INSULIN ASPART (NovoLOG) 100 UNIT/ML VIAL SQ SCH ×3 (05:52→17:21)
[2023-02-25] MEDS: IPRATROPIUM-ALBUTEROL 3 ML NEB INHALATION PRN ×2 (08:13→22:12)
[2023-02-25 09:05] LABS: African American GFR (CKD) >90 (>60 ml/min/1.73 sqM); Anion Gap 3 mmol/L; Blood Urea Nitrogen 21 mg/dL (9-20); Calcium 8.2 mg/dL (8.4-10.2); Carbon Dioxide 36 mmol/L (22-30); Chloride 96 mmol/L (98-107); Glucose 109 mg/dL (74-99); Non-African American GFR(CKD) 86 (>60 ml/min/1.73 sqM); Potassium 4.2 mmol/L (3.5-5.1); Sodium 135 mmol/L (137-145)
[2023-02-25] MEDS: FUROSEMIDE 10 MG/ML 2 ML VIAL IV SCH ×3 (09:31→23:51)
[2023-02-25] MEDS: APIXABAN 5 MG TAB PO SCH ×2 (09:42→20:47)
[2023-02-25] MEDS: ATORVASTATIN 10 MG TAB PO SCH (09:43)
[2023-02-25] MEDS: carvediloL 12.5 MG TAB PO SCH ×2 (09:43→20:48)
[2023-02-25] MEDS: FERROUS SULFATE 325 MG TAB PO SCH (09:44)
[2023-02-25] MEDS: metFORMIN 500 MG TAB PO SCH ×2 (09:45→20:47)
[2023-02-25] MEDS: LOSARTAN 50 MG TAB PO SCH (09:45)
[2023-02-25] MEDS: MAGNESIUM OXIDE 400 MG TAB PO SCH (09:45)
[2023-02-25] MEDS: MULTIVITAMINS, THERA 1 EACH TAB PO SCH (09:46)
[2023-02-25] MEDS: POTASSIUM CHLORIDE ER 20 MEQ TAB.ER PO SCH (09:47)
[2023-02-25] MEDS: TAMSULOSIN 0.4 MG CAP.ER.24H PO SCH (09:48)
[2023-02-25] MEDS: VERAPAMIL SR 120 MG TABLET.ER PO SCH (10:17)
--- NOTE | 2023-02-25 10:42 | P.PN ---
Subjective Progress Note Date: 02/25/23 HISTORY OF PRESENTING ILLNESS This is a 78-year-old male patient of Dr. Asher with a past medical history significant for chronic persistent atrial fibrillation on Eliquis, dyslipidemia, hypertension, type 2 diabetes, cardiomyopathy with an EF of 47% on echo 11/2020 with improvement in EF. We have been asked to see in consultation for CHF and chronic atrial fibrillation. Patient was recently hospitalized and discharged on 01/29 following a right hip arthroplasty and went to subacute rehab in [place] just returning home on . He had a syncopal episode along with shortness of breath went to [facility] and was subsequently transferred to [facility]. He states he could feel the episode coming on. He was sitting at a table having coffee and passed out. No injuries were noted at the time No loss of bowel or bladder. BP at [facility] was 97/72 and heart rate 62. He does have significant lower extremity edema bilaterally. Telemetry is atrial fibrillation in the 90s. Laboratory studies at [facility] revealed lactic acid 4.4. WBC 13.8, hemoglobin 10.2, platelet count 368. Sodium 138, potassium 4.7, chloride 102, CO2 27, glucose 148, BUN 19 and creatinine 0.9. Alkaline phosphatase 185 on other liver function tests within normal limits. Magnesium 1.3. Phosphorus 3.1. Troponin negative. BNP 1310. EKG at [facility] was atrial fibrillation with controlled rate. Chest x-ray reveals cardiomegaly without evidence of acute cardio pulmonary disease process. Correlate with serum BNP for congestive heart failure EKG reveals atrial fibrillation with heart rate 75. Echocardiogram in the office 08/20/2021 revealed EF of 5560 percent ascending aorta is enlarged, mild to moderate mitral regurgitation, mild tricuspid regurgitation, moderately increased pulmonary artery systolic pressure 54 mmHg Dobutamine stress echo in the office 12/2020 revealed no evidence of stress- induced ischemia, mild global hypokinesis suggestive of nonischemic cardiomyopathy Chest xray report revealed mild left lower lobe pneumonia Laboratory reviewed, WBC 12.5, hemoglobin 12.4, platelets 384, INR 1.3, sodium 132, potassium 4.3, BUN 12, serum creatinine 0.7, troponin negative 1, proBNP 461, cold. PCI and influenza PCR negative Home cardiac medications include eliquis 5 mg twice daily, atorvastatin 10 mg daily, carvedilol 12.5 mg twice a day, Lasix 20 mg daily, losartan 100 mg daily, magnesium oxide, potassium chloride, verapamil 180 mg daily 02/25 Patient states that he is feeling much better today. He feels his lower extremity edema is quite improved. His been urinating a lot over the past 24 hours. The patient remains in atrial fibrillation heart rate running between 190 heart 16. Echocardiogram reveals EF of 45%, atypical anterior and apical lateral wall hypokinesis. Patient is on IV Lasix started yesterday and diuresed well with 4 L out yesterday afternoon. Weight is down 10 kg. Repeat blood work reveals potassium 4.2, BUN 21 creatinine 0.79. PHYSICAL EXAMINATION Vitals reviewed CONSTITUTIONAL: No apparent distress. HEENT: Head is normocephalic. Pupils are equal, round. Sclerae anicteric. Mucous membranes of the mouth are moist. No JVD. No carotid bruit. CHEST EXAMINATION: Lungs are diminished bilaterally to auscultation. No chest wall tenderness is noted on palpation or with deep breathing. HEART EXAMINATION: Irregular and mild tachycardic rate and rhythm. S1, S2 heard. Systolic ejection murmur at apex. ABDOMEN: Soft, nontender. Positive bowel sounds. EXTREMITIES: 2+ peripheral pulses, moderate severe bilateral lower extremity edema, kaiser wraps to bilat legs. SKIN: Warm, dry NEUROLOGIC EXAMINATION: Patient is awake, alert and oriented x3. ASSESSMENT Syncopal episode Recent right hip arthroplasty Lactic acidosis Hypomagnesemia status post replacement Chronic persistent atrial fibrillation with controlled rate on eliquis Acute on chronic diastolic heart failure Dyslipidemia Chronic lower extremity edema History of hypertension Type 2 diabetes History of non-ischemic cardiomyopathy, with improved EF PLAN Continue patient's home cardiac medications Continue patient on on IV Lasix 20 mg every 8 hours for another day, monitor I&O, daily weights, electrolytes and renal function We will resume verapamil 120 mg daily which is a lower dose than he was taking at home. Further recommendations patient progresses Nurse Practitioner note has been reviewed, I agree with a documented findings and plan of care. Patient was seen and examined. Objective - Vital Signs Vital signs: Vital Signs Temp 96.7 F L 02/25/23 08:00 Pulse 113 H 02/25/23 08:24 Resp 18 02/25/23 08:00 BP 132/76 02/25/23 08:00 Pulse Ox 93 L 02/25/23 08:00 FiO2 Intake & Output 02/24/23 02/25/23 02/25/23 18:59 06:59 18:59 Intake Total 1320 477 240 Output Total 4150 1350 Balance -4620 -023 240 Weight 133.6 kg 129.3 kg Intake: Oral 1320 477 240 Output: Urine 4150 1350 Other: Voiding Method External Catheter External Catheter External Catheter # Voids 0 # Bowel Movements 0 - Labs CBC & Chem 7: 02/24/23 08:01 02/25/23 07:27 Labs: Abnormal Lab Results - Last 24 Hours (Table) 02/24/23 02/24/23 02/24/23 Range/Units 08:01 11:47 16:16 Sodium (137-145) mmol/L Chloride (98-107) mmol/L Carbon Dioxide (22-30) mmol/L BUN (9-20) mg/dL Glucose (74-99) mg/dL POC Glucose (mg/dL) 118 H 128 H (70-110) mg/dL Calcium (8.4-10.2) mg/dL Magnesium 1.5 L (1.6-2.3) mg/dL 02/24/23 02/25/23 02/25/23 Range/Units 19:55 05:48 07:27 Sodium 135 L (137-145) mmol/L Chloride 96 L (98-107) mmol/L Carbon Dioxide 36 H (22-30) mmol/L BUN 21 H (9-20) mg/dL Glucose 109 H (74-99) mg/dL POC Glucose (mg/dL) 128 H 117 H (70-110) mg/dL Calcium 8.2 L (8.4-10.2) mg/dL Magnesium (1.6-2.3) mg/dL
[2023-02-25 11:48] LABS: Glucose,Whole Blood 160 mg/dL (70-110)
[2023-02-25] MEDS ORDERED: Magnesium Replacement Protocol 1 EACH MISC MISCELLANE PRN (15:07)
[2023-02-25] MEDS: MAGNESIUM SULFATE-D5W PMX 1 GM in DEXTROSE/WATER 1 100ML.BAG IVPB SCH ×2 (16:12→17:15)
[2023-02-25 16:32] LABS: Glucose,Whole Blood 110 mg/dL (70-110)
[2023-02-25 20:23] LABS: Glucose,Whole Blood 138 mg/dL (70-110)
--- NOTE | 2023-02-25 22:48 | P.PN ---
Progress Note - Text Progress Note Date: 02/25/23 Chief Complaint: Syncope Hospital course This is a pleasant 78-year-old patient who follows with Dr. Truong. Chronic stable medical conditions include atrial fibrillation, diabetes, hypertension, hyperlipidemia, COPD. Patient had undergone orthopedic surgery. Dr. De Oliveira on January 27 discharged to [facility] on January 29. Patient was discharged from there recently. Patient's been noticing that is getting increasing short of breath. Increasing lower extremity swelling. Decreased appetite tired. Today while walking patient just felt very weak and he passed out for a short time. No chest pain. No dizziness. No seizure activity. Has been feeling tired and rundown. [place] to be in CHF. His started on IV Lasix Admitted with acute CHF exacerbation. 02/24/2023: Currently on IV Lasix 20 mg every 8. About 3 L in negative fluid balance. Also fluid restriction. Discussed with the patient and at the bedside. Per the at the last 2 weeks significant lower extremity fluid retention. Patient has also Darwin wrap lower extremity. Eating fair. Breathing better. 02/25/2023: Remains on IV Lasix. Breathing better. Darwin wrap's. About 5 L in negative fluid balance. Oral intake better. Active Medications Acetaminophen (Acetaminophen Tab 500 Mg Tab) 1,000 mg PO Q6HR PRN PRN Reason: Pain or Fever > 100.5 Albuterol/Ipratropium (Ipratropium-Albuterol 3 Ml Neb) 3 ml INHALATION RT-QID PRN PRN Reason: Shortness Of Breath Last Admin: 02/25/23 22:12 Dose: 3 ml Alprazolam (Alprazolam 0.25 Mg Tab) 0.25 mg PO BID PRN PRN Reason: Anxiety Last Admin: 02/24/23 23:40 Dose: 0.25 mg Apixaban (Apixaban 5 Mg Tab) 5 mg PO BID [facility]; Protocol Last Admin: 02/25/23 20:47 Dose: 5 mg Atorvastatin Calcium (Atorvastatin 10 Mg Tab) 10 mg PO DAILY [facility] Last Admin: 02/25/23 09:43 Dose: 10 mg Carvedilol (Carvedilol 12.5 Mg Tab) 12.5 mg PO BID [facility] Last Admin: 02/25/23 20:48 Dose: 12.5 mg Dextrose/Water (Dextrose 50% Syringe 50 Ml) 25 ml IVP PER PROTOCOL PRN; Protocol PRN Reason: Hypoglycemia Dextrose/Water (Dextrose 50% Syringe 50 Ml) 50 ml IVP PER PROTOCOL PRN; Protocol PRN Reason: Hypoglycemia Ferrous Sulfate (Ferrous Sulfate 325 Mg Tab) 325 mg PO DAILY [facility] Last Admin: 02/25/23 09:44 Dose: 325 mg Furosemide (Furosemide 10 Mg/Ml 2 Ml Vial) 20 mg IV Q8HR [facility] Last Admin: 02/25/23 15:42 Dose: 20 mg Insulin Aspart (Insulin Aspart (Novolog) 100 Unit/Ml Vial) 0 unit SQ AC-TID [facility]; Protocol Last Admin: 02/25/23 17:21 Dose: Not Given Losartan Potassium (Losartan 50 Mg Tab) 100 mg PO DAILY [facility] Last Admin: 02/25/23 09:45 Dose: 100 mg Magnesium Oxide (Magnesium Oxide 400 Mg Tab) 400 mg PO DAILY [facility] Last Admin: 02/25/23 09:45 Dose: 400 mg Metformin HCl (Metformin 500 Mg Tab) 1,000 mg PO BID [facility] Last Admin: 02/25/23 20:47 Dose: 1,000 mg Miscellaneous Information (Magnesium Replacement Protocol 1 Each Misc) 1 each MISCELLANE DAILY PRN; Protocol PRN Reason: Per Protocol Multivitamins (Multivitamins, Thera 1 Each Tab) 1 each PO DAILY [facility] Last Admin: 02/25/23 09:46 Dose: 1 each Potassium Chloride (Potassium Chloride Er 20 Meq Tab.Er) 20 meq PO DAILY [facility] Last Admin: 02/25/23 09:47 Dose: 20 meq Senna (Sennosides 8.6 Mg Tab) 17.2 mg PO DAILY PRN PRN Reason: Constipation Tamsulosin HCl (Tamsulosin 0.4 Mg Cap.Er.24h) 0.4 mg PO DAILY [facility] Last Admin: 02/25/23 09:48 Dose: 0.4 mg Temazepam (Temazepam 15 Mg Cap) 15 mg PO HS PRN PRN Reason: Insomnia Verapamil HCl (Verapamil Sr 120 Mg Tablet.Er) 120 mg PO DAILY [facility] Last Admin: 02/25/23 10:17 Dose: 120 mg Past medical history to include: Atrial fibrillation, diabetes, hypertension, hyperlipidemia, OA, COPD Social history: Lives with his . No smoking or alcohol. Uses a walker. Physical examination: VITAL SIGNS: 97.7, 103, 20, 92/58, 95% room air GENERAL: BMI 42.8, up in a recliner. Breathing improved EYES: Pupils equal. Conjunctiva normal. HEENT: External appearance of nose and ears normal, oral cavity grossly normal. NECK: JVD raised; masses not palpable. HEART: First and second heart sounds are normal; edema decreasing LUNGS: Respiratory rate normal; no basal crackles ABDOMEN: Soft, nontender, liver spleen not palpable, no masses palpable. PSYCH: Alert and oriented x3; mood and affect normal. MUSCULOSKELETAL OA. INVESTIGATIONS, reviewed in the clinical context: February 25: Sodium 135 potassium 4.2 creatinine 0.79 White count 12.7 hemoglobin 10.8 platelets 366 sodium 135 potassium 4.2 creatinine 0.79 EKG tracing personally reviewed by me-atrial fibrillation rate 75 2-D echocardiogram: EF 45-50%. Apical, lateral, apical anterior wall hypokinetic. Assessment and plan: -Acute congestive heart failure from systolic and diastolic dysfunction. EF 45%.: Slow to respond Fluid restriction 1500 mL daily. Strict I's and O's. IV Lasix 20 mg every 8.. -Morbid obesity BMI 42.8 Weight loss measures -Diabetes mellitus type 2 on oral hypoglycemic Metformin 1000 milligrams twice a day. Follow Accu-Cheks. -Hyperlipidemia Lipitor 10 mg -BPH Flomax -Essential hypertension Coreg 12.5 mg by mouth twice a day. Cozaar 100 milligrams daily -Persistent atrial fibrillation, rate controlled Coreg, . Eliquis -COPD DuoNeb when necessary -Primary osteoarthritis Pain medications as needed Follow lites closely. I O's. Discussed with the patient
[2023-02-25 23:11] VITALS: RESP 18
[2023-02-25] MEDS: ALPRAZolam 0.25 MG TAB PO PRN (23:51)
[2023-02-26 06:12] LABS: Glucose,Whole Blood 112 mg/dL (70-110)
[2023-02-26] MEDS: INSULIN ASPART (NovoLOG) 100 UNIT/ML VIAL SQ SCH ×3 (06:28→17:17)
[2023-02-26 08:55] LABS: African American GFR (CKD) >90 (>60 ml/min/1.73 sqM); Anion Gap 4 mmol/L; Blood Urea Nitrogen 18 mg/dL (9-20); Calcium 8.4 mg/dL (8.4-10.2); Carbon Dioxide 35 mmol/L (22-30); Chloride 96 mmol/L (98-107); Glucose 120 mg/dL (74-99); Magnesium 1.6 mg/dL (1.6-2.3); Non-African American GFR(CKD) 86 (>60 ml/min/1.73 sqM); Potassium 4.3 mmol/L (3.5-5.1); Sodium 135 mmol/L (137-145)
[2023-02-26] MEDS: FUROSEMIDE 10 MG/ML 2 ML VIAL IV SCH (08:57)
[2023-02-26] MEDS: APIXABAN 5 MG TAB PO SCH ×2 (08:58→20:54)
[2023-02-26] MEDS: MAGNESIUM OXIDE 400 MG TAB PO SCH (08:58)
[2023-02-26] MEDS: TAMSULOSIN 0.4 MG CAP.ER.24H PO SCH (08:58)
[2023-02-26] MEDS: metFORMIN 500 MG TAB PO SCH ×2 (08:58→20:54)
[2023-02-26] MEDS: ATORVASTATIN 10 MG TAB PO SCH (08:58)
[2023-02-26] MEDS: carvediloL 12.5 MG TAB PO SCH (08:59)
[2023-02-26] MEDS: FERROUS SULFATE 325 MG TAB PO SCH (08:59)
[2023-02-26] MEDS: POTASSIUM CHLORIDE ER 20 MEQ TAB.ER PO SCH (08:59)
[2023-02-26] MEDS: VERAPAMIL SR 120 MG TABLET.ER PO SCH (08:59)
[2023-02-26] MEDS: MULTIVITAMINS, THERA 1 EACH TAB PO SCH (08:59)
[2023-02-26] MEDS: LOSARTAN 50 MG TAB PO SCH (08:59)
--- NOTE | 2023-02-26 10:53 | P.PN ---
Subjective Progress Note Date: 02/26/23 HISTORY OF PRESENTING ILLNESS This is a 78-year-old male patient of Dr. Asher with a past medical history significant for chronic persistent atrial fibrillation on Eliquis, dyslipidemia, hypertension, type 2 diabetes, cardiomyopathy with an EF of 47% on echo 11/2020 with improvement in EF. We have been asked to see in consultation for CHF and chronic atrial fibrillation. Patient was recently hospitalized and discharged on 01/29 following a right hip arthroplasty and went to subacute rehab in [place] just returning home on . He had a syncopal episode along with shortness of breath went to [facility] and was subsequently transferred to [facility]. He states he could feel the episode coming on. He was sitting at a table having coffee and passed out. No injuries were noted at the time No loss of bowel or bladder. BP at [place] was 97/72 and heart rate 62. He does have significant lower extremity edema bilaterally. Telemetry is atrial fibrillation in the 90s. Laboratory studies at [place] revealed lactic acid 4.4. WBC 13.8, hemoglobin 10.2, platelet count 368. Sodium 138, potassium 4.7, chloride 102, CO2 27, glucose 148, BUN 19 and creatinine 0.9. Alkaline phosphatase 185 on other liver function tests within normal limits. Magnesium 1.3. Phosphorus 3.1. Troponin negative. BNP 1310. EKG at [place] was atrial fibrillation with controlled rate. Chest x-ray reveals cardiomegaly without evidence of acute cardio pulmonary disease process. Correlate with serum BNP for congestive heart failure EKG reveals atrial fibrillation with heart rate 75. Echocardiogram in the office 08/20/2021 revealed EF of 5560 percent ascending aorta is enlarged, mild to moderate mitral regurgitation, mild tricuspid regurgitation, moderately increased pulmonary artery systolic pressure 54 mmHg Dobutamine stress echo in the office 12/2020 revealed no evidence of stress- induced ischemia, mild global hypokinesis suggestive of nonischemic cardiomyopathy Chest xray report revealed mild left lower lobe pneumonia Laboratory reviewed, WBC 12.5, hemoglobin 12.4, platelets 384, INR 1.3, sodium 132, potassium 4.3, BUN 12, serum creatinine 0.7, troponin negative 1, proBNP 461, cold. PCI and influenza PCR negative Home cardiac medications include eliquis 5 mg twice daily, atorvastatin 10 mg daily, carvedilol 12.5 mg twice a day, Lasix 20 mg daily, losartan 100 mg daily, magnesium oxide, potassium chloride, verapamil 180 mg daily 02/25 Patient states that he is feeling much better today. He feels his lower extremity edema is quite improved. His been urinating a lot over the past 24 hours. The patient remains in atrial fibrillation heart rate running between 190 heart 16. Echocardiogram reveals EF of 45%, atypical anterior and apical lateral wall hypokinesis. Patient is on IV Lasix started yesterday and diuresed well with 4 L out yesterday afternoon. Weight is down 10 kg. Repeat blood work reveals potassium 4.2, BUN 21 creatinine 0.79. 02/26 Heart rate remains in the low 100s, atrial fibrillation. Patient has been on IV Lasix 20 mg every 8 hours and diuresing, he is on Coreg 12.5 mg twice daily. Magnesium was replaced yesterday. Repeat blood work reveals sodium 135, potassium 4.3, BUN 18 and creatinine 0.79. Magnesium is 1.6. PHYSICAL EXAMINATION Vitals reviewed CONSTITUTIONAL: No apparent distress. HEENT: Head is normocephalic. Pupils are equal, round. Sclerae anicteric. Mucous membranes of the mouth are moist. No JVD. No carotid bruit. CHEST EXAMINATION: Lungs are diminished bilaterally to auscultation. No chest wall tenderness is noted on palpation or with deep breathing. HEART EXAMINATION: Irregular and mild tachycardic rate and rhythm. S1, S2 heard. Systolic ejection murmur at apex. ABDOMEN: Soft, nontender. Positive bowel sounds. EXTREMITIES: 2+ peripheral pulses, moderate severe bilateral lower extremity edema, kaiser wraps to bilat legs. SKIN: Warm, dry NEUROLOGIC EXAMINATION: Patient is awake, alert and oriented x3. ASSESSMENT Syncopal episode Recent right hip arthroplasty Lactic acidosis Hypomagnesemia status post replacement Chronic persistent atrial fibrillation with controlled rate on eliquis Acute on chronic diastolic heart failure Dyslipidemia Chronic lower extremity edema History of hypertension Type 2 diabetes History of non-ischemic cardiomyopathy, with improved EF PLAN Continue patient's home cardiac medications Continue patient on on IV Lasix increase to 40 mg every 8 hours for another day and plan to transition to oral Lasix tomorrow Continue to monitor I&O, daily weights, electrolytes and renal function Discontinue Coreg and start patient on Lopressor 50 mg 3 times daily, continue verapamil at 120 mg daily. Further recommendations patient progresses. Anticipate transition to oral Lasix tomorrow and possible discharge home. Nurse Practitioner note has been reviewed, I agree with a documented findings and plan of care. Patient was seen and examined. Objective - Vital Signs Vital signs: Vital Signs Temp 97.7 F 02/26/23 08:00 Pulse 95 02/26/23 08:00 Resp 18 02/26/23 08:00 BP 109/54 02/26/23 08:00 Pulse Ox 96 02/26/23 08:00 FiO2 Intake & Output 02/25/23 02/26/23 02/26/23 18:59 06:59 18:59 Intake Total 420 180 Output Total 1350 1100 600 Balance -930 -920 -600 Weight 128.3 kg Intake: Oral 420 180 Output: Urine 1350 1100 600 Other: Voiding Method External Catheter External Catheter # Voids 300 # Bowel Movements 1 1 - Labs CBC & Chem 7: 02/24/23 08:01 02/26/23 07:55 Labs: Abnormal Lab Results - Last 24 Hours (Table) 02/25/23 02/25/23 02/25/23 Range/Units 07:27 11:42 20:21 Sodium (137-145) mmol/L Chloride (98-107) mmol/L Carbon Dioxide (22-30) mmol/L Glucose (74-99) mg/dL POC Glucose (mg/dL) 160 H 138 H (70-110) mg/dL Magnesium 1.4 L (1.6-2.3) mg/dL 02/26/23 02/26/23 Range/Units 06:12 07:55 Sodium 135 L (137-145) mmol/L Chloride 96 L (98-107) mmol/L Carbon Dioxide 35 H (22-30) mmol/L Glucose 120 H (74-99) mg/dL POC Glucose (mg/dL) 112 H (70-110) mg/dL Magnesium (1.6-2.3) mg/dL
[2023-02-26] MEDS: METOPROLOL TARTRATE 50 MG TAB PO SCH ×3 (11:32→20:56)
[2023-02-26 11:36] LABS: Glucose,Whole Blood 184 mg/dL (70-110)
[2023-02-26 16:26] LABS: Glucose,Whole Blood 155 mg/dL (70-110)
[2023-02-26] MEDS: FUROSEMIDE 10 MG/ML 4 ML VIAL IV SCH ×2 (16:30→23:23)
[2023-02-26 20:15] LABS: Glucose,Whole Blood 115 mg/dL (70-110)
[2023-02-26] MEDS: ALPRAZolam 0.25 MG TAB PO PRN (23:23)
[2023-02-27 06:03] LABS: Glucose,Whole Blood 110 mg/dL (70-110)
[2023-02-27] MEDS: INSULIN ASPART (NovoLOG) 100 UNIT/ML VIAL SQ SCH ×2 (06:03→13:29)
[2023-02-27] MEDS ORDERED: VERAPAMIL SR 180 MG TABLET.ER PO SCH (09:00)
[2023-02-27] MEDS ORDERED: FUROSEMIDE 40 MG TAB PO SCH (09:00)
[2023-02-27] MEDS: MAGNESIUM OXIDE 400 MG TAB PO SCH (09:30)
[2023-02-27] MEDS: TAMSULOSIN 0.4 MG CAP.ER.24H PO SCH (09:30)
[2023-02-27] MEDS: MULTIVITAMINS, THERA 1 EACH TAB PO SCH (09:31)
[2023-02-27] MEDS: POTASSIUM CHLORIDE ER 20 MEQ TAB.ER PO SCH (09:31)
[2023-02-27] MEDS: APIXABAN 5 MG TAB PO SCH (09:31)
[2023-02-27] MEDS: LOSARTAN 50 MG TAB PO SCH (09:31)
[2023-02-27] MEDS: ATORVASTATIN 10 MG TAB PO SCH (09:31)
[2023-02-27] MEDS: metFORMIN 500 MG TAB PO SCH (09:31)
[2023-02-27] MEDS: FERROUS SULFATE 325 MG TAB PO SCH (09:31)
[2023-02-27] MEDS: METOPROLOL TARTRATE 50 MG TAB PO SCH (09:31)
--- NOTE | 2023-02-27 09:40 | P.PN ---
Progress Note - Text Progress Note Date: 02/26/23 Chief Complaint: Syncope Hospital course This is a pleasant 78-year-old patient who follows with Dr. Truong. Chronic stable medical conditions include atrial fibrillation, diabetes, hypertension, hyperlipidemia, COPD. Patient had undergone orthopedic surgery. Dr. De Oliveira on January 27 discharged to [facility] on January 29. Patient was discharged from there recently. Patient's been noticing that is getting increasing short of breath. Increasing lower extremity swelling. Decreased appetite tired. Today while walking patient just felt very weak and he passed out for a short time. No chest pain. No dizziness. No seizure activity. Has been feeling tired and rundown. [place] to be in CHF. His started on IV Lasix Admitted with acute CHF exacerbation. 02/24/2023: Currently on IV Lasix 20 mg every 8. About 3 L in negative fluid balance. Also fluid restriction. Discussed with the patient and at the bedside. Per the at the last 2 weeks significant lower extremity fluid retention. Patient has also Darwin wrap lower extremity. Eating fair. Breathing better. 02/25/2023: Remains on IV Lasix. Breathing better. Darwin wrap's. About 5 L in negative fluid balance. Oral intake better. 02/26/2023: IV Lasix increased to 40 mg every 8. Good urine output. Decrease edema. Breathing better. Eating better. Care was discussed at length with the patient and with questions. Follow electrolytes. Coreg changed to Lopressor Active Medications Acetaminophen (Acetaminophen Tab 500 Mg Tab) 1,000 mg PO Q6HR PRN PRN Reason: Pain or Fever > 100.5 Last Admin: 02/26/23 18:12 Dose: 1,000 mg Albuterol/Ipratropium (Ipratropium-Albuterol 3 Ml Neb) 3 ml INHALATION RT-QID PRN PRN Reason: Shortness Of Breath Last Admin: 02/25/23 22:12 Dose: 3 ml Alprazolam (Alprazolam 0.25 Mg Tab) 0.25 mg PO BID PRN PRN Reason: Anxiety Last Admin: 02/25/23 23:51 Dose: 0.25 mg Apixaban (Apixaban 5 Mg Tab) 5 mg PO BID [facility]; Protocol Last Admin: 02/26/23 20:54 Dose: 5 mg Atorvastatin Calcium (Atorvastatin 10 Mg Tab) 10 mg PO DAILY [facility] Last Admin: 02/26/23 08:58 Dose: 10 mg Dextrose/Water (Dextrose 50% Syringe 50 Ml) 25 ml IVP PER PROTOCOL PRN; Protocol PRN Reason: Hypoglycemia Dextrose/Water (Dextrose 50% Syringe 50 Ml) 50 ml IVP PER PROTOCOL PRN; Protocol PRN Reason: Hypoglycemia Ferrous Sulfate (Ferrous Sulfate 325 Mg Tab) 325 mg PO DAILY [facility] Last Admin: 02/26/23 08:59 Dose: 325 mg Furosemide (Furosemide 10 Mg/Ml 4 Ml Vial) 40 mg IV Q8HR [facility] Last Admin: 02/26/23 16:30 Dose: 40 mg Insulin Aspart (Insulin Aspart (Novolog) 100 Unit/Ml Vial) 0 unit SQ AC-TID [facility]; Protocol Last Admin: 02/26/23 17:17 Dose: 2 unit Losartan Potassium (Losartan 50 Mg Tab) 100 mg PO DAILY [facility] Last Admin: 02/26/23 08:59 Dose: 100 mg Magnesium Oxide (Magnesium Oxide 400 Mg Tab) 400 mg PO DAILY [facility] Last Admin: 02/26/23 08:58 Dose: 400 mg Metformin HCl (Metformin 500 Mg Tab) 1,000 mg PO BID [facility] Last Admin: 02/26/23 20:54 Dose: 1,000 mg Metoprolol Tartrate (Metoprolol Tartrate 50 Mg Tab) 50 mg PO TID [facility] Last Admin: 02/26/23 20:56 Dose: 50 mg Miscellaneous Information (Magnesium Replacement Protocol 1 Each Misc) 1 each MISCELLANE DAILY PRN; Protocol PRN Reason: Per Protocol Multivitamins (Multivitamins, Thera 1 Each Tab) 1 each PO DAILY [facility] Last Admin: 02/26/23 08:59 Dose: 1 each Potassium Chloride (Potassium Chloride Er 20 Meq Tab.Er) 20 meq PO DAILY [facility] Last Admin: 02/26/23 08:59 Dose: 20 meq Senna (Sennosides 8.6 Mg Tab) 17.2 mg PO DAILY PRN PRN Reason: Constipation Tamsulosin HCl (Tamsulosin 0.4 Mg Cap.Er.24h) 0.4 mg PO DAILY [facility] Last Admin: 02/26/23 08:58 Dose: 0.4 mg Temazepam (Temazepam 15 Mg Cap) 15 mg PO HS PRN PRN Reason: Insomnia Verapamil HCl (Verapamil Sr 120 Mg Tablet.Er) 120 mg PO DAILY [facility] Last Admin: 02/26/23 08:59 Dose: 120 mg Past medical history to include: Atrial fibrillation, diabetes, hypertension, hyperlipidemia, OA, COPD Social history: Lives with his . No smoking or alcohol. Uses a walker. Physical examination: VITAL SIGNS: 97.7, 95, 18, 109/54, 96% room air GENERAL: BMI 42.8, up in a recliner. Breathing better EYES: Pupils equal. Conjunctiva normal. HEENT: External appearance of nose and ears normal, oral cavity grossly normal. NECK: JVD raised; masses not palpable. HEART: First and second heart sounds are normal; edema decreasing LUNGS: Respiratory rate normal; no basal crackles ABDOMEN: Soft, nontender, liver spleen not palpable, no masses palpable. PSYCH: Alert and oriented x3; mood and affect normal. MUSCULOSKELETAL OA. INVESTIGATIONS, reviewed in the clinical context: February 26: Sodium 135 potassium 4.3 creatinine 0.79 magnesia 1.6 February 25: Sodium 135 potassium 4.2 creatinine 0.79 White count 12.7 hemoglobin 10.8 platelets 366 sodium 135 potassium 4.2 creatinine 0.79 EKG tracing personally reviewed by me-atrial fibrillation rate 75 2-D echocardiogram: EF 45-50%. Apical, lateral, apical anterior wall hypokinetic. Assessment and plan: -Acute congestive heart failure from systolic and diastolic dysfunction. EF 45%.: Slow to respond Fluid restriction 1500 mL daily. Strict I's and O's. Increase IV Lasix 40mg every 8.. -Morbid obesity BMI 42.8 Weight loss measures -Diabetes mellitus type 2 on oral hypoglycemic Metformin 1000 milligrams twice a day. Follow Accu-Cheks. -Hyperlipidemia Lipitor 10 mg -BPH Flomax -Essential hypertension Coreg changed to Lopressor 50 mg 3 times a day. Cozaar 100 milligrams daily -Persistent atrial fibrillation, rate controlled Coreg, . Eliquis -COPD DuoNeb when necessary -Primary osteoarthritis Pain medications as needed -DO NOT RESUSCITATE Increase Lasix to 40 mg 3 times a day. Lopressor replace his Coreg. Discussed with patient and at length.
[2023-02-27 10:23] LABS: African American GFR (CKD) >90 (>60 ml/min/1.73 sqM); Anion Gap 6 mmol/L; Blood Urea Nitrogen 24 mg/dL (9-20); Calcium 8.5 mg/dL (8.4-10.2); Carbon Dioxide 35 mmol/L (22-30); Chloride 97 mmol/L (98-107); Glucose 121 mg/dL (74-99); Non-African American GFR(CKD) 86 (>60 ml/min/1.73 sqM); Potassium 4.6 mmol/L (3.5-5.1); Sodium 138 mmol/L (137-145)
[2023-02-27 11:37] LABS: Glucose,Whole Blood 112 mg/dL (70-110)
--- NOTE | 2023-02-27 12:12 | P.PN ---
Subjective Progress Note Date: 02/27/23 HISTORY OF PRESENTING ILLNESS This is a 78-year-old male patient of Dr. Asher with a past medical history significant for chronic persistent atrial fibrillation on Eliquis, dyslipidemia, hypertension, type 2 diabetes, cardiomyopathy with an EF of 47% on echo 11/2020 with improvement in EF. We have been asked to see in consultation for CHF and chronic atrial fibrillation. Patient was recently hospitalized and discharged on 01/29 following a right hip arthroplasty and went to subacute rehab in [place] just returning home on . He had a syncopal episode along with shortness of breath went to [facility] and was subsequently transferred to [facility]. He states he could feel the episode coming on. He was sitting at a table having coffee and passed out. No injuries were noted at the time No loss of bowel or bladder. BP at [place] was 97/72 and heart rate 62. He does have significant lower extremity edema bilaterally. Telemetry is atrial fibrillation in the 90s. Laboratory studies at [place] revealed lactic acid 4.4. WBC 13.8, hemoglobin 10.2, platelet count 368. Sodium 138, potassium 4.7, chloride 102, CO2 27, glucose 148, BUN 19 and creatinine 0.9. Alkaline phosphatase 185 on other liver function tests within normal limits. Magnesium 1.3. Phosphorus 3.1. Troponin negative. BNP 1310. EKG at [place] was atrial fibrillation with controlled rate. Chest x-ray reveals cardiomegaly without evidence of acute cardio pulmonary disease process. Correlate with serum BNP for congestive heart failure EKG reveals atrial fibrillation with heart rate 75. Echocardiogram in the office 08/20/2021 revealed EF of 5560 percent ascending aorta is enlarged, mild to moderate mitral regurgitation, mild tricuspid regurgitation, moderately increased pulmonary artery systolic pressure 54 mmHg Dobutamine stress echo in the office 12/2020 revealed no evidence of stress- induced ischemia, mild global hypokinesis suggestive of nonischemic cardiomyopathy Chest xray report revealed mild left lower lobe pneumonia Laboratory reviewed, WBC 12.5, hemoglobin 12.4, platelets 384, INR 1.3, sodium 132, potassium 4.3, BUN 12, serum creatinine 0.7, troponin negative 1, proBNP 461, cold. PCI and influenza PCR negative Home cardiac medications include eliquis 5 mg twice daily, atorvastatin 10 mg daily, carvedilol 12.5 mg twice a day, Lasix 20 mg daily, losartan 100 mg daily, magnesium oxide, potassium chloride, verapamil 180 mg daily 02/25 Patient states that he is feeling much better today. He feels his lower extremity edema is quite improved. His been urinating a lot over the past 24 hours. The patient remains in atrial fibrillation heart rate running between 190 heart 16. Echocardiogram reveals EF of 45%, atypical anterior and apical lateral wall hypokinesis. Patient is on IV Lasix started yesterday and diuresed well with 4 L out yesterday afternoon. Weight is down 10 kg. Repeat blood work reveals potassium 4.2, BUN 21 creatinine 0.79. 02/26 Heart rate remains in the low 100s, atrial fibrillation. Patient has been on IV Lasix 20 mg every 8 hours and diuresing, he is on Coreg 12.5 mg twice daily. Magnesium was replaced yesterday. Repeat blood work reveals sodium 135, potassium 4.3, BUN 18 and creatinine 0.79. Magnesium is 1.6. 02/27 Patient is seen today in follow-up. He shows continued weight loss and has been on Lasix 40 mg every 8 hours which was adjusted yesterday. We'll plan to transition him to oral Lasix today. His heart rate remains elevated will increase verapamil.repeat blood work reveals sodium 138, potassium 4.6, BUN 24 creatinine 0.79. PHYSICAL EXAMINATION Vitals reviewed CONSTITUTIONAL: No apparent distress. HEENT: Head is normocephalic. Pupils are equal, round. Sclerae anicteric. Mucous membranes of the mouth are moist. No JVD. No carotid bruit. CHEST EXAMINATION: Lungs are diminished bilaterally to auscultation. No chest wall tenderness is noted on palpation or with deep breathing. HEART EXAMINATION: Irregular and mild tachycardic rate and rhythm. S1, S2 heard. Systolic ejection murmur at apex. ABDOMEN: Soft, nontender. Positive bowel sounds. EXTREMITIES: 2+ peripheral pulses, 1+ bilateral lower extremity edema, kaiser wraps to bilat legs. SKIN: Warm, dry NEUROLOGIC EXAMINATION: Patient is awake, alert and oriented x3. ASSESSMENT Syncopal episode Recent right hip arthroplasty Lactic acidosis Hypomagnesemia status post replacement Chronic persistent atrial fibrillation with controlled rate on eliquis Acute on chronic diastolic heart failure Dyslipidemia Chronic lower extremity edema History of hypertension Type 2 diabetes History of non-ischemic cardiomyopathy, with improved EF PLAN Continue patient's home cardiac medications Transition IV Lasix to oral 40 mg twice daily, increase verapamil 280 mg daily Continue Lopressor which is new for him on this admission Cardiology we'll sign off and follow on an as-needed basis. Please reconsult for any new concerns. Patient is cleared for discharge home and may follow-up with Dr. Asher in one week. Further recommendations patient progresses. Anticipate transition to oral Lasix tomorrow and possible discharge home. Nurse Practitioner note has been reviewed, I agree with a documented findings and plan of care. Patient was seen and examined. Objective - Vital Signs Vital signs: Vital Signs Temp 98.4 F 02/26/23 20:00 Pulse 108 H 02/27/23 04:00 Resp 18 02/27/23 04:00 BP 152/82 02/27/23 04:00 Pulse Ox 96 02/27/23 04:00 FiO2 Intake & Output 02/26/23 02/27/23 02/27/23 18:59 06:59 18:59 Output Total 1400 1600 Balance -1400 -1600 Weight 125.2 kg Output: Urine 1400 1600 Other: Voiding Method External Catheter External Catheter # Bowel Movements 2 - Labs CBC & Chem 7: 02/24/23 08:01 02/27/23 09:48 Labs: Abnormal Lab Results - Last 24 Hours (Table) 02/26/23 02/26/23 02/26/23 Range/Units 07:55 11:35 16:25 Sodium 135 L (137-145) mmol/L Chloride 96 L (98-107) mmol/L Carbon Dioxide 35 H (22-30) mmol/L Glucose 120 H (74-99) mg/dL POC Glucose (mg/dL) 184 H 155 H (70-110) mg/dL 02/26/23 Range/Units 20:14 Sodium (137-145) mmol/L Chloride (98-107) mmol/L Carbon Dioxide (22-30) mmol/L Glucose (74-99) mg/dL POC Glucose (mg/dL) 115 H (70-110) mg/dL
[2023-02-27 12:22] VITALS: BP 112/71; PULSE 82; TEMP 97.7
--- NOTE | 2023-02-27 22:23 | P.DS ---
Providers Date of admission: 02/23/23 19:14 Expected date of discharge: 02/27/23 Attending physician: José Antonio Packer Consults: 02/23/23 19:06 Consult Physician Routine Consulting Provider: Renzo Claros Consult Reason/Comments: CHF, chronic atrial fibrillation Do you want consulting provider notified?: Yes Primary care physician: Denny Alexi [facility] Hospital Course: Chief Complaint: Syncope Hospital course This is a pleasant 78-year-old patient who follows with Dr. Truong. Chronic stable medical conditions include atrial fibrillation, diabetes, hypertension, hyperlipidemia, COPD. Patient had undergone orthopedic surgery. Dr. De Oliveira on January 27 discharged to [facility] on January 29. Patient was discharged from there recently. Patient's been noticing that is getting increasing short of breath. Increasing lower extremity swelling. Decreased appetite tired. Today while walking patient just felt very weak and he passed out for a short time. No chest pain. No dizziness. No seizure activity. Has been feeling tired and rundown. Spencer to be in CHF. His started on IV Lasix Admitted with acute CHF exacerbation. 02/24/2023: Currently on IV Lasix 20 mg every 8. About 3 L in negative fluid balance. Also fluid restriction. Discussed with the patient and at the bedside. Per the at the last 2 weeks significant lower extremity fluid retention. Patient has also Darwin wrap lower extremity. Eating fair. Breathing better. 02/25/2023: Remains on IV Lasix. Breathing better. Darwin wrap's. About 5 L in negative fluid balance. Oral intake better. 02/26/2023: IV Lasix increased to 40 mg every 8. Good urine output. Decrease edema. Breathing better. Eating better. Care was discussed at length with the patient and with questions. Follow electrolytes. Coreg changed to Lopressor February 27: Patient doing well. Walking the hallway. Breathing much improved. Decrease edema. Cleared by currently. Several questions answered for the patient and the . Fluid restriction. Follow-up with oncology. Discussion and discharge planning more than 35 minutes Past medical history to include: Atrial fibrillation, diabetes, hypertension, hyperlipidemia, OA, COPD Social history: Lives with his . No smoking or alcohol. Uses a walker. Physical examination: VITAL SIGNS: 97.7, 82, 18, 112/71, 94% room air GENERAL: BMI 42.8, up in a recliner. EYES: Pupils equal. Conjunctiva normal. HEENT: External appearance of nose and ears normal, oral cavity grossly normal. NECK: JVD raised; masses not palpable. HEART: First and second heart sounds are normal; edema improved LUNGS: Respiratory rate normal; clear ABDOMEN: Soft, nontender, liver spleen not palpable, no masses palpable. PSYCH: Alert and oriented x3; mood and affect normal. MUSCULOSKELETAL OA. INVESTIGATIONS, reviewed in the clinical context: February 27: Sodium 138 potassium 4.6 creatinine 0.79 White count 12.7 hemoglobin 10.8 platelets 366 sodium 135 potassium 4.2 creatinine 0.79 EKG tracing personally reviewed by me-atrial fibrillation rate 75 2-D echocardiogram: EF 45-50%. Apical, lateral, apical anterior wall hypokinetic. Assessment and plan: -Acute congestive heart failure from systolic and diastolic dysfunction. EF 45%.: Improved Fluid restriction 2000 mL a day. Lasix 40 mg twice a day -Morbid obesity BMI 42.8 Weight loss measures -Diabetes mellitus type 2 on oral hypoglycemic Metformin 1000 milligrams twice a day. Follow Accu-Cheks. -Hyperlipidemia Lipitor 10 mg -BPH Flomax -Essential hypertension Coreg discontinued. Lopressor 50 mg 3 times a day. Cozaar 100 milligrams daily -Persistent atrial fibrillation, rate controlled Coreg, . Eliquis -COPD DuoNeb when necessary -Primary osteoarthritis Pain medications as needed -DO NOT RESUSCITATE Disposition: Home. Patient Condition at Discharge: Fair Plan - Discharge Summary Discharge Rx Participant: No New Discharge Prescriptions: New Furosemide [Lasix] 40 mg PO BID@0900,1600 #60 tab Metoprolol Tartrate [Lopressor] 50 mg PO TID #90 tab Continue Magnesium Oxide 400 mg PO DAILY Ferrous Sulfate [Iron (65 MG Elemental)] 325 mg PO DAILY Potassium Chloride [Klor-Con 20] 20 meq PO DAILY metFORMIN HCL [Glucophage] 1,000 mg PO BID Atorvastatin Calcium [Lipitor] 10 mg PO DAILY Multivitamins, Thera [Multivitamin (formulary)] 1 tab PO DAILY Tamsulosin [Flomax] 0.4 mg PO DAILY Albuterol Sulfate [Albuterol Sulfate Hfa] 1 puff PO RT-TID PRN PRN Reason: Shortness Of Breath Losartan Potassium [Cozaar] 100 mg PO DAILY Temazepam [Restoril] 15 mg PO HS PRN PRN Reason: Insomnia Apixaban [Eliquis] 5 mg PO BID Ipratropium-Albuterol Nebulize [Duoneb 0.5 mg-3 mg/3 ml Soln] 3 ml INHALATION RT-QID PRN PRN Reason: Shortness Of Breath Verapamil HCl [Verapamil ER] 180 mg PO DAILY Sennosides [Senokot] 16.2 tab PO DAILY PRN PRN Reason: Constipation Acetaminophen Tab [Tylenol] 1,000 mg PO Q6HR PRN PRN Reason: Pain Or Fever > 100.5 Discontinued Furosemide [Lasix] 20 mg PO DAILY carvediloL [Coreg*] 12.5 mg PO BID ALPRAZolam [Xanax] 0.25 mg PO BID PRN PRN Reason: Anxiety Discharge Medication List Atorvastatin Calcium [Lipitor] 10 mg PO DAILY 11/18/20 [History] Ferrous Sulfate [Iron (65 MG Elemental)] 325 mg PO DAILY 11/18/20 [History] Magnesium Oxide 400 mg PO DAILY 11/18/20 [History] Multivitamins, Thera [Multivitamin (formulary)] 1 tab PO DAILY 11/18/20 [History] Potassium Chloride [Klor-Con 20] 20 meq PO DAILY 11/18/20 [History] metFORMIN HCL [Glucophage] 1,000 mg PO BID 11/18/20 [History] Apixaban [Eliquis] 5 mg PO BID 01/21/23 [History] Ipratropium-Albuterol Nebulize [Duoneb 0.5 mg-3 mg/3 ml Soln] 3 ml INHALATION RT-QID PRN 01/21/23 [History] Acetaminophen Tab [Tylenol] 1,000 mg PO Q6HR PRN 02/23/23 [History] Albuterol Sulfate [Albuterol Sulfate Hfa] 1 puff PO RT-TID PRN 02/23/23 [History] Losartan Potassium [Cozaar] 100 mg PO DAILY 02/23/23 [History] Sennosides [Senokot] 16.2 tab PO DAILY PRN 02/23/23 [History] Tamsulosin [Flomax] 0.4 mg PO DAILY 02/23/23 [History] Temazepam [Restoril] 15 mg PO HS PRN 02/23/23 [History] Verapamil HCl [Verapamil ER] 180 mg PO DAILY 02/23/23 [History] Furosemide [Lasix] 40 mg PO BID@0900,1600 #60 tab 02/27/23 [Rx] Metoprolol Tartrate [Lopressor] 50 mg PO TID #90 tab 02/27/23 [Rx] Follow up Appointment(s)/Referral(s): Chapincito Asher MD [STAFF PHYSICIAN] - 03/04/23 3:15 pm Denny Truong MD [Primary Care Provider] - 03/03/23 2:00 pm Activity/Diet/Wound Care/Special Instructions: fluid restiction 2000 cc/day Discharge Disposition: HOME SELF-CARE
== END 2023-02-27 14:15 | disposition home or self-care (01) | DRG 291 ==
LOC: EC 14:19 → 3SCARD 19:14
PROVIDERS: ADMIT Hospitalist; ATTEND Hospitalist
PROC: B246ZZ4 Ultrasonography of Right and Left Heart, Transesophageal (ICD-10-PCS; principal; 2023-02-24)
DX: I11.0 Hypertensive heart disease with heart failure (principal); I50.43 Acute on chronic combined systolic (congestive) and diastolic (congestive) heart failure; E87.20 Acidosis, unspecified; I48.19 Other persistent atrial fibrillation; Z68.41 Body mass index [BMI] 40.0-44.9, adult; F32.A Depression, unspecified; E83.42 Hypomagnesemia; E78.5 Hyperlipidemia, unspecified; E66.01 Morbid (severe) obesity due to excess calories; M19.91 Primary osteoarthritis, unspecified site; N40.0 Benign prostatic hyperplasia without lower urinary tract symptoms; Z96.641 Presence of right artificial hip joint; R55 Syncope and collapse; Z66 Do not resuscitate; I08.1 Rheumatic disorders of both mitral and tricuspid valves; I27.29 Other secondary pulmonary hypertension; I42.8 Other cardiomyopathies; E11.649 Type 2 diabetes mellitus with hypoglycemia without coma; F41.9 Anxiety disorder, unspecified; G47.00 Insomnia, unspecified; Z79.899 Other long term (current) drug therapy; Z79.84 Long term (current) use of oral hypoglycemic drugs; Z79.01 Long term (current) use of anticoagulants
CPT/HCPCS: 80048; 80053; 83735; 83880; 85025; 93005; 93306; 94640; 96374; 96375; 99285

== ENCOUNTER 2023-11-05 18:02 | Inpatient (IN) | payer MEDICARE ==
[2023-11-05] MEDS ORDERED: ACETAMINOPHEN TAB 325 MG TAB PO PRN (18:17)
[2023-11-05] MEDS ORDERED: NALOXONE 0.4 MG/ML 1 ML VIAL IV PRN (18:17)
--- NOTE | 2023-11-05 18:23 | ED ---
General Adult HPI - General Stated complaint: VANCE Time Seen by Provider: 11/05/23 18:05 Source: patient, EMS, RN notes reviewed, old records reviewed Limitations: no limitations - History of Present Illness Initial comments: 78 yo male presenting as transfer from outside hospital with acute CHF and possi ble concurrent pneumonia. The patient had been transferred from [facility] with chief complaint of dyspnea, found to be fluid overloaded with CHF on chest x-ray, elevated BNP, and significant peripheral edema. He was given Lasix and placed on BiPAP prior to transfer. There is also some concern for concurrent pneumonia and the patient was given azithromycin and ceftriaxone prior to transfer. His vital panel was negative. He denies central chest pain. Does report increased bilateral lower extremity edema and worsening dyspnea. He is on Eliquis with history of atrial fibrillation. - Related Data Home Medications Medication Instructions Recorded Confirmed Atorvastatin Calcium [Lipitor] 10 mg PO DAILY 11/18/20 11/05/23 Multivitamins, Thera [Multivitamin 1 tab PO DAILY 11/18/20 11/05/23 (formulary)] Potassium Chloride [Klor-Con 20] 20 meq PO DAILY 11/18/20 11/05/23 metFORMIN HCL [Glucophage] 1,000 mg PO BID 11/18/20 11/05/23 Apixaban [Eliquis] 5 mg PO BID 01/21/23 11/05/23 Albuterol Sulfate [Albuterol 1 - 2 puff PO RT-TID PRN 02/23/23 11/05/23 Sulfate Hfa] ALPRAZolam [Xanax] 0.25 mg PO BID PRN 11/05/23 11/05/23 Losartan Potassium 100 mg PO DIRECTED 11/05/23 11/05/23 Metoprolol Tartrate [Lopressor] 50 mg PO DIRECTED 11/05/23 11/05/23 amLODIPine [Norvasc] 5 mg PO DAILY 11/05/23 11/05/23 carvediloL [Coreg] 12.5 mg PO DIRECTED 11/05/23 11/05/23 Previous Rx's Medication Instructions Recorded Furosemide [Lasix] 40 mg PO BID@0900,1600 #60 tab 02/27/23 Allergies Allergy/AdvReac Type Severity Reaction Status Date / Time No Known Allergies Allergy Verified 11/05/23 18:31 Review of Systems ROS Statement: Those systems with pertinent positive or pertinent negative responses have been documented in the HPI. ROS Other: All systems not noted in ROS Statement are negative. Past Medical History Past Medical History: Atrial Fibrillation, Heart Failure, Diabetes Mellitus, Hyperlipidemia, Hypertension History of Any Multi-Drug Resistant Organisms: None Reported Past Surgical History: Appendectomy, Joint Replacement Additional Past Surgical History / Comment(s): total left hip Past Anesthesia/Blood Transfusion Reactions: No Reported Reaction Additional Past Anesthesia/Blood Transfusion Reaction / Comment(s): no hx blood transfusion Past Psychological History: Depression Smoking Status: Former smoker Past Alcohol Use History: None Reported Additional Past Alcohol Use History / Comment(s): quit smoking years ago, smoked very short time Past Drug Use History: None Reported - Past Family History Mother Family Medical History: No Reported History Sister(s) Family Medical History: Cancer Additional Family Medical History / Comment(s): breast,eye General Exam General appearance: alert, in no apparent distress Head exam: Present: atraumatic, normocephalic Eye exam: Present: normal appearance, PERRL ENT exam: Present: normal exam Neck exam: Present: normal inspection. Absent: tenderness, meningismus Respiratory exam: Present: rales, other (Patient on BiPAP). Absent: respiratory distress Cardiovascular Exam: Present: regular rate, irregular rhythm GI/Abdominal exam: Present: soft. Absent: distended, tenderness, guarding Extremities exam: Present: pedal edema Neurological exam: Present: alert, oriented X3, CN II-XII intact. Absent: motor sensory deficit Psychiatric exam: Present: normal affect, normal mood Skin exam: Present: warm Course Vital Signs 11/05/23 11/05/23 11/05/23 18:08 18:11 18:12 Temperature 98.1 F Pulse Rate 115 H Respiratory 22 Rate Blood Pressure 123/97 O2 Sat by Pulse 100 Oximetry Fraction of 60 60 Inspired Oxygen (FIO2) Medical Decision Making - Medical Decision Making Was pt. sent in by a medical professional or institution (HUEY Barboza, TRANSIT BUS DRIVER, urgent care, hospital, or care home...) When possible be specific @ - transferred from [facility] with request for cardiology consultation and treatment of acute CHF speak to anyone other than the patient for history (EMS, parent, family, police, friend...)? What history was obtained from this source @ -EMS Did you review nursing and triage notes (agree or disagree)? Why? @ -I reviewed and agree with nursing and triage notes Were old charts reviewed (outside hosp., previous admission, EMS record, old EKG, old radiological studies, urgent care reports/EKG's, care home records)? Report findings @ -No old charts were reviewed Differential Diagnosis (chest pain, altered mental status, abdominal pain women, abdominal pain men, vaginal bleeding, weakness, fever, dyspnea, syncope, headache, dizziness, GI bleed, back pain, seizure, CVA, palpatations, mental health, musculoskeletal)? @. (Differential Dyspnea: Coronary syndrome, arrhythmia, tamponade, asthma, COPD, pulmonary embolism, pneumonia, pneumothorax, pulmonary effusion, anaphylaxis, diabetic ketoacidosis, flailed chest, pulmonary contusion, diaphragmatic rupture, anemia, neuromuscular, this is not meant to be an all-inclusive list. EKG interpreted by me (3pts min.). @Atrial fibrillation with RVR rate of 116 QRS duration 108, QTC 401 X-rays interpreted by me (1pt min.). @ -[Chest x-ray will be repeated in the morning, CT interpreted by me (1pt min.). @ -None done U/S interpreted by me (1pt. min.). @ -None done What testing was considered but not performed or refused? (CT, X-rays, U/S, labs)? Why? @ -None What meds were considered but not given or refused? Why? @ -None Did you discuss the management of the patient with other professionals (professionals i.e. , PA, TRANSIT BUS DRIVER, lab, RT, psych nurse, manager social responsibility, catalyst concentration operator, teacher, transportation security officer, case management assistant)? Give summary @ -EMH Was smoking cessation discussed for >3mins.? @ -No Was critical care preformed (if so, how long)? @ -No Were there social determinants of health that impacted care today? How? (Homelessness, low income, unemployed, alcoholism, drug addiction, transportation, low edu. Level, literacy, decrease access to med. care, intermediate, rehab)? @ -No Was there de-escalation of care discussed even if they declined (Discuss DNR or withdrawal of care, Hospice)? DNR status @ -No What co-morbidities impacted this encounter? (DM, HTN, Smoking, COPD, CAD, Cancer, CVA, ARF, Chemo, Hep., AIDS, mental health diagnosis, sleep apnea, morb id obesity)? @ -[CHF, atrial fibrillation Was patient admitted / discharged? Hospital course, mention meds given and route, prescriptions, significant lab abnormalities, going to OR and other pertinent info. @ -Patient transferred from [facility] with acute CHF and possible concurrent pneumonia. Patient has no fever or cough. He has elevated BNP, extremity edema. Repeat laboratory tests including CBC, CMP, troponin and BNP will be obtained. BMP and troponin are elevated, troponin 0.1 this level will be trended. The patient is started on heparin, Lasix, and metoprolol in the emergency department. Chest x-ray will be repeated in the morning. The patient will be continued on IV diuresis. He will be admitted to internal medicine with cardiology on consult. Undiagnosed new problem with uncertain prognosis? @ -No Drug Therapy requiring intensive monitoring for toxicity (Heparin, Nitro, Insulin, Cardizem)? @ -No Were any procedures done? @ -No Diagnosis/symptom? @ -Acute CHF, troponin elevated Acute, or Chronic, or Acute on Chronic? @ -[Acute on chronic Uncomplicated (without systemic symptoms) or Complicated (systemic symptoms)? @ -default Side effects of treatment? @ -No Exacerbation, Progression, or Severe Exacerbation? @ -No Poses a threat to life or bodily function? How? (Chest pain, [place], [place], pneumonia, PE, COPD, DKA, ARF, appy, cholecystitis, CVA, Diverticulitis, Homicidal, Suic idal, threat to staff... and all critical care pts) @ -[Yes, congestive heart failure - Lab Data Result diagrams: 11/05/23 18:32 11/05/23 18:32 Critical Care Time Critical Care Time: Yes Total Critical Care Time: 35 Disposition Clinical Impression: CHF (congestive heart failure), Troponin level elevated Disposition: ADMITTED IP TO THIS HOSP Condition: Stable Is patient prescribed a controlled substance at d/c from ED?: No Time of Disposition: 18:23
[2023-11-05 18:46] LABS: Basophils % (A) 0 %; Eosinophils # (A) 0.1 k/uL (0-0.7); Eosinophils % (A) 1 %; HGB 13.4 gm/dL (13.0-17.5); Lymphocytes # (A) 0.7 k/uL (1.0-4.8); Lymphocytes % (A) 6 %; MCHC 32.8 g/dL (31.0-37.0); MCV 94.6 fL (80.0-100.0); Mean Platelet Volume 7.7; Monocytes # (A) 0.5 k/uL (0-1.0); Monocytes % (A) 4 %; Neutrophils # (A) 10.1 k/uL (1.3-7.7); Neutrophils % (A) 88 %; Platelet Count 328 k/uL (150-450); RBC 4.33 m/uL (4.30-5.90); WBC 11.5 k/uL (3.8-10.6)
[2023-11-05 19:01] LABS: ALT 44 U/L (4-49); AST 47 U/L (17-59); African American GFR (CKD) 78 (>60 ml/min/1.73 sqM); Albumin 4.2 g/dL (3.5-5.0); Alkaline Phosphatase 95 U/L (38-126); Anion Gap 13 mmol/L; Blood Urea Nitrogen 22 mg/dL (9-20); Calcium 9.3 mg/dL (8.4-10.2); Carbon Dioxide 24 mmol/L (22-30); Chloride 100 mmol/L (98-107); Glucose 168 mg/dL (74-99); Non-African American GFR(CKD) 68 (>60 ml/min/1.73 sqM); Sodium 137 mmol/L (137-145); Total Bilirubin 0.8 mg/dL (0.2-1.3); Total Protein 7.4 g/dL (6.3-8.2)
[2023-11-05 19:10] LABS: NT-Pro-B-Type Natriuretic Pept 2190 pg/mL
[2023-11-05] MEDS ORDERED: HEPARIN SODIUM 1,000 UN/ML (10ML VL) IV PRN (19:31)
[2023-11-05] MEDS ORDERED: HEPARIN SOD,PORK IN 0.45% NACL 25,000 UNIT in 0.45% NACL 1 250ML.BAG IV SCH (19:45)
[2023-11-05] MEDS: METOPROLOL TARTRATE 50 MG TAB PO SCH (20:45)
[2023-11-05] MEDS ORDERED: APIXABAN 5 MG TAB PO SCH (21:00)
[2023-11-06] MEDS ORDERED: MORPHINE SULFATE 4 MG/ML SYRINGE IVP PRN (00:29)
[2023-11-06 02:18] LABS: Basophils # (A) 0.1 k/uL (0-0.2); Basophils % (A) 1 %; Eosinophils % (A) 0 %; HCT 39.4 % (39.0-53.0); Hypochromasia Slight; Lymphocytes # (A) 0.7 k/uL (1.0-4.8); Lymphocytes % (A) 7 %; MCH 31.4 pg (25.0-35.0); MCV 95.2 fL (80.0-100.0); Mean Platelet Volume 8.2; Monocytes # (A) 0.5 k/uL (0-1.0); Monocytes % (A) 5 %; Neutrophils # (A) 8.6 k/uL (1.3-7.7); Neutrophils % (A) 86 %; Platelet Count 292 k/uL (150-450); RBC 4.14 m/uL (4.30-5.90); RDW 13.9 % (11.5-15.5)
[2023-11-06 02:30] LABS: INR 1.2 (<1.2); Partial Thromboplastin Time 32.6 sec (22.0-30.0); Prothrombin Time 12.4 sec (10.0-12.5)
[2023-11-06] MEDS: FUROSEMIDE 10 MG/ML 4 ML VIAL IV SCH ×2 (05:57→17:31)
--- NOTE | 2023-11-06 09:34 | XR ---
EXAMINATION TYPE: XR chest 1V portable DATE OF EXAM: 11/06/2023 Comparison: 10/19/2021 Clinical History: 78-year-old male Pain Findings: Heart remains moderately enlarged. Interstitial density. Patchy bibasilar opacity is present. No siza ble pleural effusion on the frontal view. Impression: Moderate cardiomegaly with interstitial density. Some patchy bibasilar opacities. Correlate to exclud e mild CHF with pulmonary vascular congestion versus early patchy bibasilar interstitial infiltrates.
[2023-11-06] MEDS: METOPROLOL TARTRATE 50 MG TAB PO SCH ×2 (10:18→21:10)
[2023-11-06] MEDS ORDERED: ALBUTEROL NEBULIZED 2.5 MG/3 ML INHALATION STA (11:22)
--- NOTE | 2023-11-06 12:17 | CONS ---
CONSULTATION HISTORY OF PRESENT ILLNESS: This is a 78-year-old gentleman with a known history of chronic persistent atrial fibrillation. He has been transferred from [facility]. He has been having increasing shortness of breath. He had a recent right hip arthroplasty sometime in February. His other comorbid conditions include type 2 diabetes, nonischemic cardiomyopathy with improvement in his EF. He is resting comfortably at the time of my evaluation. On reviewing the chest x-ray, it appears there is a possibility of pneumonia as well. He is having some wheezing. I am recommending that we will give him a breathing treatment, and I will request Pulmonology to see the patient. We will also check a procalcitonin level and an echocardiogram to reassess LV function. I discussed my thoughts in detail with the patient and family. EKG revealed atrial fibrillation, moderate ventricular rate of about 110 beats per minute, and nonspecific ST-T changes with isolated PVCs. PAST MEDICAL HISTORY: 1. Chronic persistent atrial fibrillation. 2. Nonischemic cardiomyopathy by history. 3. Type 2 diabetes mellitus. 4. Hypertension. 5. Hyperlipidemia. 6. Degenerative joint disease. PHYSICAL EXAMINATION: VITAL SIGNS: Blood pressure is 118/70, pulse rate about 110. HEENT: Unremarkable. Fundus was not examined by me. NECK: Supple. JVD 1 cm. No carotid bruit. HEART: Reveals S1, S2 heard normally. LUNGS: Reveal diminished air entry with scattered rhonchi. ABDOMEN: Soft, nontender. EXTREMITIES: Lower extremities reveal diminished pulses. CENTRAL NERVOUS SYSTEM: Grossly within normal limits. IMPRESSION: 1. Exacerbation of probably diastolic and to some extent systolic heart failure. 2. Chronic persistent atrial fibrillation. 3. History of nonischemic cardiomyopathy. 4. Rule out pneumonia. RECOMMENDATIONS: I am recommending a breathing treatment, echocardiogram, a pulmonary evaluation, and also the procalcitonin level. I discussed my thoughts in detail with the patient. Thank you very much for the consult. MMODL / IJN: [id number] /
[2023-11-06] MEDS: APIXABAN 5 MG TAB PO SCH ×2 (12:35→21:10)
--- NOTE | 2023-11-06 12:46 | CA ---
Transthoracic Echo Report Name: Harvey Acosta Age: 78 Gender: M : 1945 Exam Date: 11/06/2023 09:36 Exam Location: [place] [facility] Ht (in): 71 Wt (lb): 298 Ordering Physician: Doug Lew MD Attending/Referring Phys: [id number], Louann Certified Scrum Master Adrienne Calvillo [facility] Procedure CPT: Indications: chf Cardiac Hx: Technical Quality: Technically difficult study Contrast 1: Definity Total Dose (mL): 5 Contrast 2: Total Dose (mL): MEASUREMENTS (Male / Female) Normal Values 2D ECHO LV Diastolic Diameter PLAX 5.4 cm 4.2 - 5.9 / 3.9 - 5.3 cm LV Systolic Diameter PLAX 4.1 cm IVS Diastolic Thickness 1.0 cm 0.6 - 1.0 / 0.6 - 0.9 cm LVPW Diastolic Thickness 1.1 cm 0.6 - 1.0 / 0.6 - 0.9 cm LV Relative Wall Thickness 0.4 LVOT Diameter 2.0 cm Ascending Aorta Diameter 4.0 cm M-MODE Aortic Root Diameter MM 3.3 cm LA Systolic Diameter MM 5.2 cm LA Ao Ratio MM 1.6 AV Cusp Separation MM 1.7 cm DOPPLER AV Peak Velocity 112.0 cm/s AV Peak Gradient 5.0 mmHg AV Mean Velocity 92.6 cm/s AV Mean Gradient 3.5 mmHg AV Velocity Time Integral 23.1 cm LVOT Peak Velocity 83.5 cm/s LVOT Peak Gradient 2.8 mmHg LVOT Velocity Time Integral 11.1 cm LVOT Stroke Volume 35.5 cm??? LVOT Stroke Volume Index 14.2 ml/m??? LVOT Cardiac Index 1361.6 cm???/min???m??? AV Area Cont Eq vti 1.5 cm??? AV Area Cont Eq pk 2.4 cm??? MR Peak Velocity 422.5 cm/s MR Peak Gradient 71.4 mmHg Mitral E Point Velocity 88.6 cm/s MV Deceleration Time 155.3 ms LV E' Lateral Velocity 12.1 cm/s Mitral E to LV E' Lateral Ratio 7.3 LV E' Septal Velocity 8.4 cm/s Mitral E to LV E' Septal Ratio 10.5 TR Peak Velocity 321.8 cm/s TR Peak Gradient 41.4 mmHg Right Atrial Pressure 15.0 mmHg Pulmonary Artery Systolic Pressu 56.4 mmHg Right Ventricular Systolic Press 56.4 mmHg FINDINGS Left Ventricle Left ventricular cavity size normal. Left ventricular ejection fraction is estimated at 30-35 %. Severe hypokinesis to akinesis of the anteroapical, anteroseptal and anterolateral wall Right Ventricle Severe right ventricular dilatation. Moderate pulmonary hypertension. Right Atrium Severe right atrial dilatation. Left Atrium Severe left atrial dilatation. Mitral Valve Mitral valve not well visualized. Mitral valve thickened. [id number] mitral regurgitation. Aortic Valve Trileaflet aortic valve. Aortic valve sclerosis. Trace aortic regurgitation. Tricuspid Valve Tricuspid valve not well visualized. Mild tricuspid regurgitation. Pulmonic Valve Pulmonic valve not well visualized. Pericardium No pericardial effusion. Aorta Normal size aortic root and mildly dilated proximal ascending aorta. CONCLUSIONS Definity ECHO contrast used for improved visualization of the endocardial borders (inadequate visualization of two or more contiguous segments). 1. Severely impaired left ventricular systolic function with segmental wall motion abnormality 2. Mild to moderate mitral with mild tricuspid regurgitation and moderate pulmonary hypertension Previewed by: Dr. Chapincito Asher MD (Electronically Signed) Final Date: 06 November 2023 12:45
--- NOTE | 2023-11-06 17:28 | P.HPIM ---
History of Present Illness H&P Date: 11/06/23 Chief Complaint: Shortness of breath 78 yo male presenting as transfer from outside hospital with acute CHF and possible concurrent pneumonia. The patient had been transferred from [facility] with chief complaint of dyspnea, found to be fluid overloaded with CHF on chest x-ray, elevated BNP, and significant peripheral edema. He was given Lasix and placed on BiPAP prior to transfer. There is also some concern for concurrent pneumonia and the patient was given azithromycin and ceftriaxone prior to transfer. His vital panel was negative. He denies central chest pain. Does report increased bilateral lower extremity edema and worsening dyspnea. He is on Eliquis with history of atrial fibrillation. Atrial fibrillation with RVR rate of 116 QRS duration 108, QTC 401 BNP and troponin are elevated, troponin 0.1 this level will be trended. The patient is started on heparin, Lasix, and metoprolol in the emergency department. Chest x-ray will be repeated in the morning. The patient will be continued on IV diuresis. Review of Systems REVIEW OF SYSTEMS: CONSTITUTIONAL: No fever, no malaise, no fatigue. HEENT: No recent visual problems or hearing problems. Denied any sore throat. CARDIOVASCULAR: No chest pain, orthopnea, PND, no palpitations, no syncope. PULMONARY: No shortness of breath, no cough, no hemoptysis. GASTROINTESTINAL: No diarrhea, no nausea, no vomiting, no abdominal pain. NEUROLOGICAL: No headaches, no weakness, no numbness. HEMATOLOGICAL: Denies any bleeding or petechiae. GENITOURINARY: Denies any burning micturition, frequency, or urgency. MUSCULOSKELETAL/RHEUMATOLOGICAL: Denies any joint pain, swelling, or any muscle pain. ENDOCRINE: Denies any polyuria or polydipsia. The rest of the 14-point review of systems is negative. Past Medical History Past Medical History: Atrial Fibrillation, Heart Failure, Diabetes Mellitus, Hyperlipidemia, Hypertension History of Any Multi-Drug Resistant Organisms: None Reported Past Surgical History: Appendectomy, Joint Replacement Additional Past Surgical History / Comment(s): total left hip Past Anesthesia/Blood Transfusion Reactions: No Reported Reaction Additional Past Anesthesia/Blood Transfusion Reaction / Comment(s): no hx blood transfusion Past Psychological History: Depression Smoking Status: Former smoker Past Alcohol Use History: None Reported Additional Past Alcohol Use History / Comment(s): quit smoking years ago, smoked very short time Past Drug Use History: None Reported - Past Family History Mother Family Medical History: No Reported History Sister(s) Family Medical History: Cancer Additional Family Medical History / Comment(s): breast,eye Medications and Allergies Home Medications Medication Instructions Recorded Confirmed Type Atorvastatin Calcium [Lipitor] 10 mg PO DAILY 11/18/20 11/05/23 History Multivitamins, Thera [Multivitamin 1 tab PO DAILY 11/18/20 11/05/23 History (formulary)] Potassium Chloride [Klor-Con 20] 20 meq PO DAILY 11/18/20 11/05/23 History metFORMIN HCL [Glucophage] 1,000 mg PO BID 11/18/20 11/05/23 History Apixaban [Eliquis] 5 mg PO BID 01/21/23 11/05/23 History Albuterol Sulfate [Albuterol 1 - 2 puff PO RT-TID PRN 02/23/23 11/05/23 History Sulfate Hfa] Furosemide [Lasix] 40 mg PO BID@0900,1600 #60 tab 02/27/23 11/05/23 Rx ALPRAZolam [Xanax] 0.25 mg PO BID PRN 11/05/23 11/05/23 History Losartan Potassium 100 mg PO DAILY 11/05/23 11/06/23 History Metoprolol Tartrate [Lopressor] 50 mg PO BID 11/05/23 11/06/23 History amLODIPine [Norvasc] 5 mg PO DAILY 11/05/23 11/05/23 History diphenhydrAMINE HCL [Children's 50 mg PO Q6H PRN 11/05/23 11/05/23 History Benadryl Allergy] Allergies Allergy/AdvReac Type Severity Reaction Status Date / Time No Known Allergies Allergy Verified 11/05/23 18:31 Physical Exam Vitals: Vital Signs Temp Pulse Resp BP Pulse Ox FiO2 11/06/23 11:56 85 11/06/23 11:48 85 11/06/23 11:08 100 11/06/23 10:46 105 H 22 100 11/06/23 10:14 98.1 F 90 22 118/71 100 11/06/23 08:04 101 H 22 99 11/06/23 07:35 50 11/06/23 06:28 92 23 95/79 100 11/06/23 04:29 79 14 116/84 100 11/06/23 03:48 60 11/06/23 03:35 87 15 109/84 100 11/06/23 00:00 60 11/05/23 22:52 98.2 F 96 16 116/75 100 11/05/23 20:30 117 H 20 128/82 99 11/05/23 20:12 60 11/05/23 19:30 107 H 20 123/93 97 11/05/23 18:30 104 H 22 123/97 95 11/05/23 18:12 60 11/05/23 18:11 60 11/05/23 18:08 98.1 F 115 H 22 123/97 100 Intake and Output 11/05/23 11/06/23 11/06/23 22:59 06:59 14:59 Intake Total 65.667 Balance 65.667 Intake: Intake, IV Titration 65.667 Amount Heparin Sod,Pork in 0.45% 65.667 NaCl 25,000 unit In 0.45 % NaCl 1 250ml.bag @ 7. 398 UNITS/KG/HR 10 mls/hr IV .Q24H [facility] Rx#: [id number] Other: Weight 135.171 kg General appearance: alert, in no apparent distress Head exam: Present: atraumatic, normocephalic Eye exam: Present: normal appearance, PERRL ENT exam: Present: normal exam Neck exam: Present: normal inspection. Absent: tenderness, meningismus Respiratory exam: Present: rales, other (Patient on BiPAP). Absent: respiratory distress Cardiovascular Exam: Present: regular rate, irregular rhythm GI/Abdominal exam: Present: soft. Absent: distended, tenderness, guarding Extremities exam: Present: pedal edema Neurological exam: Present: alert, oriented X3, CN II-XII intact. Absent: motor sensory deficit Skin exam: Present: warm Results CBC & Chem 7: 11/06/23 01:41 11/05/23 18:32 Labs: Abnormal Lab Results - Last 24 Hours (Table) 11/05/23 11/05/23 11/05/23 Range/Units 18:32 18:32 18:32 WBC 11.5 H (3.8-10.6) k/uL RBC (4.30-5.90) m/uL Neutrophils # 10.1 H (1.3-7.7) k/uL Lymphocytes # 0.7 L (1.0-4.8) k/uL INR (<1.2) APTT (22.0-30.0) sec BUN 22 H (9-20) mg/dL Glucose 168 H (74-99) mg/dL Troponin I 0.100 H* (0.000-0.034) ng/mL 11/05/23 11/06/23 11/06/23 Range/Units 21:09 01:33 01:41 WBC (3.8-10.6) k/uL RBC (4.30-5.90) m/uL Neutrophils # (1.3-7.7) k/uL Lymphocytes # (1.0-4.8) k/uL INR 1.2 H (<1.2) APTT 32.6 H (22.0-30.0) sec BUN (9-20) mg/dL Glucose (74-99) mg/dL Troponin I 0.139 H* 0.148 H* (0.000-0.034) ng/mL 11/06/23 11/06/23 Range/Units 01:41 09:54 WBC (3.8-10.6) k/uL RBC 4.14 L (4.30-5.90) m/uL Neutrophils # 8.6 H (1.3-7.7) k/uL Lymphocytes # 0.7 L (1.0-4.8) k/uL INR (<1.2) APTT 74.0 H (22.0-30.0) sec BUN (9-20) mg/dL Glucose (74-99) mg/dL Troponin I (0.000-0.034) ng/mL Assessment and Plan Assessment: 1. Acute exacerbation CHF - Patient has been placed on Lasix 40 mg IV every 12 hours; we'll monitor strict BLADE's, daily weights, renal function and electrolytes -- Low salt and fluid restricted diet -- Recommend 2-D echo 2. Elevated troponin; we will monitor EKG and trend troponin; currently not on IV heparin infusion 3. Mild leukocytosis; likely reactive ; no signs of infection; we'll monitor CBC 4. Mild AK I; BUN is elevated; creatinine remains within normal limit - We will monitor strict BLADE's, daily weights, renal function and electrolytes; avoid nephrotoxins and hypotension 5. Atrial fibrillation with RVR; patient has been placed on home dose of metoprolol; L Porter 5 mg by mouth twice a day 6. Hypertension; amlodipine 5 mg daily; Cozaar 50 mg daily; metoprolol 50 mg t wice a day 7. Hyperlipidemia; Lipitor 10 mg daily 8. Diabetes mellitus; we will monitor Accu-Cheks case any dizziness with insulin sliding scale DVT prophylaxis; SCDs/systemic anticoagulation CODE STATUS; full code
[2023-11-06] MEDS: metFORMIN 500 MG TAB PO SCH (17:30)
[2023-11-06 20:51] LABS: Glucose,Whole Blood 136 mg/dL (70-110)
[2023-11-06] MEDS ORDERED: diphenhydrAMINE 25 MG CAP PO PRN (20:58)
[2023-11-07 06:25] LABS: Glucose,Whole Blood 125 mg/dL (70-110)
[2023-11-07] MEDS: metFORMIN 500 MG TAB PO SCH ×2 (06:34→16:51)
[2023-11-07] MEDS: FUROSEMIDE 10 MG/ML 4 ML VIAL IV SCH ×2 (06:34→20:37)
[2023-11-07] MEDS: APIXABAN 5 MG TAB PO SCH ×2 (08:41→20:37)
[2023-11-07] MEDS: METOPROLOL TARTRATE 50 MG TAB PO SCH (08:42)
[2023-11-07] MEDS: POTASSIUM CHLORIDE ER 20 MEQ TAB.ER PO SCH (08:42)
[2023-11-07] MEDS: ATORVASTATIN 10 MG TAB PO SCH (08:42)
[2023-11-07] MEDS ORDERED: LOSARTAN 50 MG TAB PO SCH (09:00)
[2023-11-07] MEDS ORDERED: amLODIPine 5 MG TAB PO SCH (09:00)
[2023-11-07 09:22] LABS: Basophils # (A) 0.1 k/uL (0-0.2); Basophils % (A) 1 %; Eosinophils # (A) 0.2 k/uL (0-0.7); Eosinophils % (A) 2 %; HCT 37.4 % (39.0-53.0); HGB 11.8 gm/dL (13.0-17.5); Hypochromasia Slight; Lymphocytes # (A) 0.6 k/uL (1.0-4.8); Lymphocytes % (A) 6 %; MCH 30.6 pg (25.0-35.0); MCHC 31.7 g/dL (31.0-37.0); MCV 96.4 fL (80.0-100.0); Monocytes # (A) 0.7 k/uL (0-1.0); Monocytes % (A) 7 %; Neutrophils # (A) 7.5 k/uL (1.3-7.7); Neutrophils % (A) 82 %; Platelet Count 249 k/uL (150-450); RBC 3.87 m/uL (4.30-5.90); RDW 14.1 % (11.5-15.5); WBC 9.1 k/uL (3.8-10.6)
[2023-11-07 09:40] LABS: African American GFR (CKD) 77 (>60 ml/min/1.73 sqM); Anion Gap 9 mmol/L; Blood Urea Nitrogen 26 mg/dL (9-20); Calcium 8.9 mg/dL (8.4-10.2); Carbon Dioxide 31 mmol/L (22-30); Chloride 95 mmol/L (98-107); Glucose 195 mg/dL (74-99); Non-African American GFR(CKD) 66 (>60 ml/min/1.73 sqM); Potassium 4.1 mmol/L (3.5-5.1); Sodium 135 mmol/L (137-145)
[2023-11-07 11:42] LABS: Glucose,Whole Blood 135 mg/dL (70-110)
--- NOTE | 2023-11-07 12:12 | P.CNPUL ---
History of Present Illness Consult date: 11/07/23 Requesting physician: Maurice Vance Reason for consult: dyspnea, hypoxemia, pleural effusion, abnormal CXR/CT Chief complaint: Shortness of breath. History of present illness: Pulmonary consult dated 11/07/2023. 78-year-old male who was seen in the emergency department, on November 08, complaining of shortness of breath. He apparently was brought into the ER, by EMS, and came from [facility], with fluid overload, CHF, and elevated BNP, and significant lower extremity edema. According to the patient, confirmed by the patient's , he was not taking his Lasix. He doesn't like to take his Lasix, when he is away from home. Anyway, he is seen today in room 365. The patient's pro-calcitonin level was 0.18. He continues on oxygen at 4 L. No IV fluids. His N-terminal proBNP was elevated. His troponins were elevated. The patient does smoke heavily in the past. He does not use oxygen at home. White count 9.1, hemoglobin 11.8, hematocrit 37.4, and platelet count was normal. Sodium 135, potassium 4.1, chlorides 95, CO2 31, BUN 26, and creatinine 1.07. Troponins were 0.139, and 0.148. N-terminal proBNP was 2190. Chest x-ray showed cardiomegaly, with interstitial edema and pulmonary vascular congestion. The patient is currently on albuterol treatments, Lasix, and his regular cardiac medications. The patient is feeling better, that being admitted. Review of Systems REVIEW OF SYSTEMS: CONSTITUTIONAL: [Negative.] NEUROLOGIC: [ Negative.] HEENT: [ Negative.] CARDIAC: Shortness of breath, lower extremity edema. PULMONARY: Shortness of breath. GI: [Negative.] : [Negative.] RHEUMATOLOGIC: [ Negative.] IMMUNOLOGIC: [ Negative.] ENDOCRINE: [Negative. ] DERMATOLOGIC: [Negative.] Past Medical History Past Medical History: Atrial Fibrillation, Heart Failure, Diabetes Mellitus, Hyperlipidemia, Hypertension History of Any Multi-Drug Resistant Organisms: None Reported Past Surgical History: Appendectomy, Joint Replacement Additional Past Surgical History / Comment(s): total bilateral hip, cataracts Past Anesthesia/Blood Transfusion Reactions: No Reported Reaction Additional Past Anesthesia/Blood Transfusion Reaction / Comment(s): No hx blood transfusion. Past Psychological History: Depression Smoking Status: Former smoker Past Alcohol Use History: None Reported Additional Past Alcohol Use History / Comment(s): Quit smoking many years ago, smoked for a very short period. Past Drug Use History: None Reported - Past Family History Mother Family Medical History: No Reported History Sister(s) Family Medical History: Cancer Additional Family Medical History / Comment(s): breast, eye Medications and Allergies Home Medications Medication Instructions Recorded Confirmed Type Atorvastatin Calcium [Lipitor] 10 mg PO DAILY 11/18/20 11/05/23 History Multivitamins, Thera [Multivitamin 1 tab PO DAILY 11/18/20 11/05/23 History (formulary)] Potassium Chloride [Klor-Con 20] 20 meq PO DAILY 11/18/20 11/05/23 History metFORMIN HCL [Glucophage] 1,000 mg PO BID 11/18/20 11/05/23 History Apixaban [Eliquis] 5 mg PO BID 01/21/23 11/05/23 History Albuterol Sulfate [Albuterol 1 - 2 puff PO RT-TID PRN 02/23/23 11/05/23 History Sulfate Hfa] Furosemide [Lasix] 40 mg PO BID@0900,1600 #60 tab 02/27/23 11/05/23 Rx ALPRAZolam [Xanax] 0.25 mg PO BID PRN 11/05/23 11/05/23 History Losartan Potassium 100 mg PO DAILY 11/05/23 11/06/23 History Metoprolol Tartrate [Lopressor] 50 mg PO BID 11/05/23 11/06/23 History amLODIPine [Norvasc] 5 mg PO DAILY 11/05/23 11/05/23 History diphenhydrAMINE HCL [Children's 50 mg PO Q6H PRN 11/05/23 11/05/23 History Benadryl Allergy] Allergies Allergy/AdvReac Type Severity Reaction Status Date / Time No Known Allergies Allergy Verified 11/05/23 18:31 Physical Exam Osteopathic Statement: *. No significant issues noted on an osteopathic structural exam other than those noted in the History and Physical/Consult. Vitals: Vital Signs Temp Pulse Pulse Resp BP BP Pulse Ox 11/07/23 11:53 98.1 F 88 20 111/74 100 11/07/23 08:23 97 12/23/23 08:00 97.3 F L 102 H 17 117/74 100 11/07/23 04:00 98.0 F 109 H 20 151/98 99 11/06/23 23:53 98.0 F 86 18 135/88 99 11/06/23 21:00 98.2 F 87 18 104/73 94 L 11/06/23 20:25 97 11/06/23 13:50 26 H 11/06/23 13:46 89 26 H 110/67 99 11/06/23 13:40 11/06/23 12:36 84 18 105/69 99 FiO2 11/07/23 11:53 11/07/23 08:23 11/07/23 08:00 11/07/23 04:00 11/06/23 23:53 11/06/23 21:00 11/06/23 20:25 11/06/23 13:50 11/06/23 13:46 11/06/23 13:40 32 11/06/23 12:36 Intake and Output 11/06/23 11/07/23 11/07/23 22:59 06:59 14:59 Intake Total 180 Output Total 400 200 Balance -400 -20 Intake: Oral 180 Output: Urine 400 200 Other: Voiding Method External Catheter Toilet # Voids 1 Weight 135.171 kg 133.9 kg No acute distress, oriented 3. Currently on 4 L, with saturations of 99%. No mary ann respiratory distress. No use of accessory muscles, or audible wheezing. HEENT examination is grossly unremarkable. Mucous membranes are moist. No oral lesions. Neck supple. Full range of motion. No adenopathy thyromegaly or neck vein distention. Cardiovascular examination reveals an irregular rhythm and rate. S1-S2 normal. No S3 or S4. No discernible murmur noted. Heart sounds are distant. Heart rate 80 bpm. Lungs reveal bibasilar crackles. No wheezes. No rhonchi. Breath sounds are equal bilaterally. Abdomen soft bowel sounds are heard. No masses or tenderness. Extremities are intact. No cyanosis or clubbing. Slight edema is noted. Skin is without rash or lesion. Neurologic examination is brief but nonfocal. Results - Laboratory Findings CBC and BMP: 11/07/23 08:49 11/07/23 08:49 PT/INR, D-dimer PT 12.4 sec (10.0-12.5) 11/06/23 01:33 INR 1.2 (<1.2) H 11/06/23 01:33 Abnormal lab findings: Abnormal Labs 11/05/23 11/05/23 11/05/23 18:32 18:32 18:32 WBC 11.5 H RBC Hgb Hct Neutrophils # 10.1 H Lymphocytes # 0.7 L INR APTT Sodium Chloride Carbon Dioxide BUN 22 H Glucose 168 H POC Glucose (mg/dL) Troponin I 0.100 H* Procalcitonin 11/05/23 11/06/23 11/06/23 21:09 01:33 01:41 WBC RBC Hgb Hct Neutrophils # Lymphocytes # INR 1.2 H APTT 32.6 H Sodium Chloride Carbon Dioxide BUN Glucose POC Glucose (mg/dL) Troponin I 0.139 H* 0.148 H* Procalcitonin 11/06/23 11/06/23 11/06/23 01:41 09:54 09:54 WBC RBC 4.14 L Hgb Hct Neutrophils # 8.6 H Lymphocytes # 0.7 L INR APTT 74.0 H Sodium Chloride Carbon Dioxide BUN Glucose POC Glucose (mg/dL) Troponin I Procalcitonin 0.18 H 11/06/23 11/07/23 11/07/23 20:49 06:17 08:49 WBC RBC 3.87 L Hgb 11.8 L Hct 37.4 L Neutrophils # Lymphocytes # 0.6 L INR APTT Sodium Chloride Carbon Dioxide BUN Glucose POC Glucose (mg/dL) 136 H 125 H Troponin I Procalcitonin 11/07/23 11/07/23 08:49 11:40 WBC RBC Hgb Hct Neutrophils # Lymphocytes # INR APTT Sodium 135 L Chloride 95 L Carbon Dioxide 31 H BUN 26 H Glucose 195 H POC Glucose (mg/dL) 135 H Troponin I Procalcitonin - Diagnostic Findings Chest x-ray: image reviewed Assessment and Plan Assessment: Acute shortness of breath, secondary to chronic atrial fibrillation, and diastolic/systolic CHF. History of nonischemic cardiomyopathy. History of hyperlipidemia. History of diabetes mellitus. History of hypertension. History of depression. Prior history of tobacco use. Plan: Plan dated 11/07/2023. The patient is feeling much better since he was admitted, back on the . He sitting in a chair next to his hospital bed. He continues on oxygen at 4 L. His peripheral edema is much improved. His breathing is much improved. Labs, x-rays, and medications are reviewed. I don't believe the patient has an active pneumonic process at this time. He denies any significant cough or phlegm production. We will continue to follow make recommendations along the way. Labs, x-rays, and medications are reviewed. Prognosis is guarded. Time with Patient: Greater than 30
--- NOTE | 2023-11-07 15:01 | P.PN ---
Subjective Progress Note Date: 11/07/23 The patient is a 78-year-old male who follows in the office with Dr. Scott. He presented to [facility] with worsening shortness of breath. 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 He was found to be in acute congestive heart failure. Echocardiogram reveals reduced ejection fraction at 30% with anterior hypokinesis. He has a known long-standing history of persistent atrial fibrillation as well as lymphedema. GENERAL: Well-appearing, well-nourished and in no acute distress. NECK: Supple without JVD or thyromegaly. LUNGS: Breath sounds clear to auscultation bilaterally. Respiration equal and unlabored. No wheezes, rales or rhonchi. HEART: Irregular rate and rhythm without murmurs, rubs or gallops. S1 and S2 heard. EXTREMITIES: Normal range of motion, no edema. No clubbing or cyanosis. Peripheral pulses intact and strong. TELEMETRY: Persistent atrial fibrillation with heart rates in the low 100s IMPRESSION: Congestive heart failure, systolic Nonischemic cardiomyopathy, EF 30-35% Persistent atrial fibrillation Type 2 diabetes Hypertension Hyperlipidemia Lymphedema PLAN: Increase beta thomas Discontinue losartan and start Entresto tomorrow Leg elevation and compression wraps for lymphedema Further recommendations based on clinical course I am dictating on behalf of Dr Shiraz Joyce's history/physical and assessment/plan. Objective - Vital Signs Vital signs: Vital Signs Temp 98.1 F 11/07/23 11:53 Pulse 88 11/07/23 11:53 Resp 20 11/07/23 11:53 BP 111/74 11/07/23 11:53 Pulse Ox 100 11/07/23 11:53 FiO2 32 11/06/23 13:40 Intake & Output 11/06/23 11/07/23 11/07/23 18:59 06:59 18:59 Intake Total 360 Output Total 400 200 Balance -400 160 Weight 133.9 kg Intake: Oral 360 Output: Urine 400 200 Other: Voiding Method Toilet # Voids 1 - Labs CBC & Chem 7: 11/07/23 08:49 11/07/23 08:49 Labs: Abnormal Lab Results - Last 24 Hours (Table) 11/06/23 11/06/23 11/07/23 Range/Units 09:54 20:49 06:17 RBC (4.30-5.90) m/uL Hgb (13.0-17.5) gm/dL Hct (39.0-53.0) % Lymphocytes # (1.0-4.8) k/uL Sodium (137-145) mmol/L Chloride (98-107) mmol/L Carbon Dioxide (22-30) mmol/L BUN (9-20) mg/dL Glucose (74-99) mg/dL POC Glucose (mg/dL) 136 H 125 H (70-110) mg/dL Procalcitonin 0.18 H (0.02-0.09) ng/mL 11/07/23 11/07/23 11/07/23 Range/Units 08:49 08:49 08:49 RBC 3.87 L (4.30-5.90) m/uL Hgb 11.8 L (13.0-17.5) gm/dL Hct 37.4 L (39.0-53.0) % Lymphocytes # 0.6 L (1.0-4.8) k/uL Sodium 135 L (137-145) mmol/L Chloride 95 L (98-107) mmol/L Carbon Dioxide 31 H (22-30) mmol/L BUN 26 H (9-20) mg/dL Glucose 195 H (74-99) mg/dL POC Glucose (mg/dL) (70-110) mg/dL Procalcitonin 0.15 H (0.02-0.09) ng/mL 11/07/23 Range/Units 11:40 RBC (4.30-5.90) m/uL Hgb (13.0-17.5) gm/dL Hct (39.0-53.0) % Lymphocytes # (1.0-4.8) k/uL Sodium (137-145) mmol/L Chloride (98-107) mmol/L Carbon Dioxide (22-30) mmol/L BUN (9-20) mg/dL Glucose (74-99) mg/dL POC Glucose (mg/dL) 135 H (70-110) mg/dL Procalcitonin (0.02-0.09) ng/mL
[2023-11-07] MEDS ORDERED: FUROSEMIDE 10 MG/ML 4 ML VIAL IV SCH (16:00)
[2023-11-07 16:33] LABS: Glucose,Whole Blood 139 mg/dL (70-110)
--- NOTE | 2023-11-07 16:34 | P.PN ---
Progress Note - Text Progress Note Date: 11/07/23 Chief Complaint: Shortness of breath 78 yo male presenting as transfer from outside hospital with acute CHF and possible concurrent pneumonia. The patient had been transferred from [facility] with chief complaint of dyspnea, found to be fluid overloaded with CHF on chest x-ray, elevated BNP, and significant peripheral edema. He was given Lasix and placed on BiPAP prior to transfer. There is also some concern for concurrent pneumonia and the patient was given azithromycin and ceftriaxone prior to transfer. His vital panel was negative. He denies central chest pain. Does report increased bilateral lower extremity edema and worsening dyspnea. He is on Eliquis with history of atrial fibrillation. Atrial fibrillation with RVR rate of 116 QRS duration 108, QTC 401 BNP and troponin are elevated, troponin 0.1 this level will be trended. The patient is started on heparin, Lasix, and metoprolol in the emergency department. Chest x-ray will be repeated in the morning. The patient will be continued on IV diuresis. November 07: I assumed care of the patient today. Patient sitting up in a chair. Breathing a bit better. Significant edema still present. Nose of IV Lasix every 12.. Discussed with patient and at the bedside. Entresto was started by cardiology Active Medications Acetaminophen (Acetaminophen Tab 325 Mg Tab) 650 mg PO Q6HR PRN PRN Reason: Mild Pain or Fever > 100.5 Alprazolam (Alprazolam 0.25 Mg Tab) 0.25 mg PO BID PRN PRN Reason: Anxiety Apixaban (Apixaban 5 Mg Tab) 5 mg PO BID [facility]; Protocol Last Admin: 11/07/23 08:41 Dose: 5 mg Atorvastatin Calcium (Atorvastatin 10 Mg Tab) 10 mg PO DAILY [facility] Last Admin: 11/07/23 08:42 Dose: 10 mg Diphenhydramine HCl (Diphenhydramine 25 Mg Cap) 25 mg PO HS PRN PRN Reason: Insomnia Last Admin: 11/06/23 23:19 Dose: 25 mg Furosemide (Furosemide 10 Mg/Ml 4 Ml Vial) 40 mg IV Q12HR [facility] Metformin HCl (Metformin 500 Mg Tab) 500 mg PO BID-W/MEALS [facility] Last Admin: 11/07/23 06:34 Dose: 500 mg Metoprolol Succinate (Metoprolol Succinate (Er) 50 Mg Tab.Er.24h) 50 mg PO BID [facility] Naloxone HCl (Naloxone 0.4 Mg/Ml 1 Ml Vial) 0.2 mg IV Q2M PRN PRN Reason: Opioid Reversal Potassium Chloride (Potassium Chloride Er 20 Meq Tab.Er) 20 meq PO DAILY [facility] Last Admin: 11/07/23 08:42 Dose: 20 meq Sacubitril/Valsartan (Sacubitril/Valsartan 24 Mg-26 Mg Tablet) 1 each PO BID [facility] Past medical history to include: Atrial fibrillation, diabetes, hypertension, hyperlipidemia, OA, COPD Social history: Lives with his . No smoking or alcohol. Uses a walker. Physical examination: VITAL SIGNS: 98.1, 88, 20, 111/74, 100% on 5 L GENERAL: BMI 41.2, up in a recliner. EYES: Pupils equal. Conjunctiva normal. HEENT: External appearance of nose and ears normal, oral cavity grossly normal. NECK: JVD raised; masses not palpable. HEART: First and second heart sounds are normal; significant edema improved LUNGS: Respiratory rate normal; basal fine crackles ABDOMEN: Soft, nontender, liver spleen not palpable, no masses palpable. PSYCH: Alert and oriented x3; mood and affect normal. MUSCULOSKELETAL OA. Past Medical History Past Medical History: Atrial Fibrillation, Heart Failure, Diabetes Mellitus, Hyperlipidemia, Hypertension History of Any Multi-Drug Resistant Organisms: None Reported Past Surgical History: Appendectomy, Joint Replacement Additional Past Surgical History / Comment(s): total left hip Past Anesthesia/Blood Transfusion Reactions: No Reported Reaction Additional Past Anesthesia/Blood Transfusion Reaction / Comment(s): no hx blood transfusion Past Psychological History: Depression Smoking Status: Former smoker Past Alcohol Use History: None Reported Additional Past Alcohol Use History / Comment(s): quit smoking years ago, smoked very short time Past Drug Use History: None Reported - Past Family History Mother Family Medical History: No Reported History Sister(s) Family Medical History: Cancer Additional Family Medical History / Comment(s): breast,eye INVESTIGATIONS, reviewed in the clinical context: November 07: White count 9.1 hemoglobin 11.8 platelets 249 potassium 4.1 BUN 26 creatinine 1.07 2-D echocardiogram: EF 30-35%. Hypokinesis of the anteroapical anteroseptal and anterolateral wall, moderate pulmonary hypertension, severe right ventricle dilatation Assessment: 1. Acute exacerbation CHF from systolic and diastolic dysfunction, EF 30-35%, slow to respond Continue Lasix 40 mg IV every 12 hours; we'll monitor strict BLADE's, daily weights, renal function and electrolytes -- Low salt and fluid restricted 1500 cc diet Cardiology following 2. Elevated troponin; secondary to CHF. No ACS 3. Mild leukocytosis; likely reactive ; no signs of infection; we'll monitor CBC 4. Mild AK I; BUN is elevated; creatinine remains within normal limit - We will monitor strict BLADE's, daily weights, renal function and electrolytes; avoid nephrotoxins and hypotension 5. Persistent Atrial fibrillation with RVR on presentation; metoprolol; eliquis 5 mg by mouth twice a day 6. Essential Hypertension; amlodipine 5 mg daily; Cozaar 50 mg daily; metoprolol 50 mg twice a day 7. Hyperlipidemia; Lipitor 10 mg daily 8. Diabetes mellitus; Continue monitor Accu-Cheks with insulin sliding scale Glucophage -Primary osteoarthritis Pain medications as needed -COPD Albuterol when necessary -BPH -Morbid obesity BMI 41.3 -DO NOT RESUSCITATE Discussed with the patient .
[2023-11-07 20:19] LABS: Glucose,Whole Blood 158 mg/dL (70-110)
[2023-11-07] MEDS: METOPROLOL SUCCINATE (ER) 50 MG TAB.ER.24H PO SCH (20:37)
[2023-11-08] MEDS: metFORMIN 500 MG TAB PO SCH ×2 (06:15→17:17)
[2023-11-08 06:16] LABS: Glucose,Whole Blood 152 mg/dL (70-110)
[2023-11-08 07:50] LABS: Basophils # (A) 0.1 k/uL (0-0.2); Basophils % (A) 1 %; Eosinophils # (A) 0.4 k/uL (0-0.7); Eosinophils % (A) 5 %; HCT 36.3 % (39.0-53.0); HGB 11.7 gm/dL (13.0-17.5); Hypochromasia Slight; Lymphocytes # (A) 0.8 k/uL (1.0-4.8); Lymphocytes % (A) 9 %; MCH 30.7 pg (25.0-35.0); MCHC 32.2 g/dL (31.0-37.0); MCV 95.1 fL (80.0-100.0); Monocytes # (A) 0.7 k/uL (0-1.0); Monocytes % (A) 8 %; Neutrophils # (A) 6.2 k/uL (1.3-7.7); Neutrophils % (A) 76 %; Platelet Count 265 k/uL (150-450); RBC 3.81 m/uL (4.30-5.90); RDW 14.1 % (11.5-15.5); WBC 8.2 k/uL (3.8-10.6)
[2023-11-08] MEDS: APIXABAN 5 MG TAB PO SCH ×2 (08:33→21:09)
[2023-11-08] MEDS: METOPROLOL SUCCINATE (ER) 50 MG TAB.ER.24H PO SCH ×2 (08:33→21:09)
[2023-11-08] MEDS: POTASSIUM CHLORIDE ER 20 MEQ TAB.ER PO SCH (08:33)
[2023-11-08] MEDS: SACUBITRIL/VALSARTAN 24 MG-26 MG TABLET PO SCH ×2 (08:33→21:09)
[2023-11-08] MEDS: FUROSEMIDE 10 MG/ML 4 ML VIAL IV SCH ×2 (08:33→21:10)
[2023-11-08] MEDS: ATORVASTATIN 10 MG TAB PO SCH (08:33)
[2023-11-08 10:21] LABS: African American GFR (CKD) >90 (>60 ml/min/1.73 sqM); Anion Gap 10 mmol/L; Blood Urea Nitrogen 22 mg/dL (9-20); Calcium 8.9 mg/dL (8.4-10.2); Carbon Dioxide 30 mmol/L (22-30); Chloride 96 mmol/L (98-107); Glucose 133 mg/dL (74-99); Non-African American GFR(CKD) 84 (>60 ml/min/1.73 sqM); Potassium 4.3 mmol/L (3.5-5.1); Sodium 136 mmol/L (137-145)
--- NOTE | 2023-11-08 10:31 | P.PN ---
Subjective Progress Note Date: 11/08/23 Principal diagnosis: Congestive heart failure. Pulmonary consult dated 11/07/2023. 78-year-old male who was seen in the emergency department, on November 08, complaining of shortness of breath. He apparently was brought into the ER, by EMS, and came from [facility], with fluid overload, CHF, and elevated BNP, and significant lower extremity edema. According to the patient, confirmed by the patient's , he was not taking his Lasix. He doesn't like to take his Lasix, when he is away from home. Anyway, he is seen today in room 365. The patient's pro-calcitonin level was 0.18. He continues on oxygen at 4 L. No IV fluids. His N-terminal proBNP was elevated. His troponins were elevated. The patient does smoke heavily in the past. He does not use oxygen at home. White count 9.1, hemoglobin 11.8, hematocrit 37.4, and platelet count was normal. Sodium 135, potassium 4.1, chlorides 95, CO2 31, BUN 26, and creatinine 1.07. Troponins were 0.139, and 0.148. N-terminal proBNP was 2190. Chest x-ray showed cardiomegaly, with interstitial edema and pulmonary vascular congestion. The patient is currently on albuterol treatments, Lasix, and his regular cardiac medications. The patient is feeling better, that being admitted. Progress note dated 11/08/2023. 78-year-old male seen in consultation yesterday. He came into the emergency department complaining of shortness of breath, weight gain, and lower extremity edema. The patient was found to have congestive heart failure. He is feeling better today. He seen in room 365. He's not receiving any IV fluids. He is on 2 L by nasal cannula. Current labs include a white count 8.2, hemoglobin 11.7, hematocrit 36.3, and a platelet count of 265,000. Sodium 136, potassium 4.3, chloride 96, CO2 30, BUN 22, and creatinine 0.82. Objective - Vital Signs Vital signs: Vital Signs Temp 97.9 F 11/08/23 08:00 Pulse 98 11/08/23 08:00 Resp 20 11/08/23 08:00 BP 111/74 11/08/23 08:00 Pulse Ox 94 L 11/08/23 08:28 FiO2 32 11/06/23 13:40 Intake & Output 11/07/23 11/08/23 11/08/23 18:59 06:59 18:59 Intake Total 540 746 180 Output Total 1350 1300 1000 Balance -810 -554 -820 Weight 133.4 kg Intake: IV 10 Invasive Line 1 10 Oral 540 736 180 Output: Urine 1350 1300 1000 Other: Voiding Method External Catheter External Catheter - Exam No acute distress, oriented 3. Currently on 2 L, with saturations of 96 %. No mary ann respiratory distress. No use of accessory muscles, or audible wheezing. HEENT examination is grossly unremarkable. Mucous membranes are moist. No oral lesions. Neck supple. Full range of motion. No adenopathy thyromegaly or neck vein distention. Cardiovascular examination reveals an irregular rhythm and rate. S1-S2 normal. No S3 or S4. No discernible murmur noted. Heart sounds are distant. Heart rate 98 bpm. Lungs reveal bibasilar crackles. No wheezes. No rhonchi. Breath sounds are equal bilaterally. Abdomen soft bowel sounds are heard. No masses or tenderness. Extremities are intact. No cyanosis or clubbing. Slight edema is noted. Skin is without rash or lesion. Neurologic examination is brief but nonfocal. - Labs CBC & Chem 7: 11/08/23 06:44 11/08/23 06:44 Labs: Abnormal Lab Results - Last 24 Hours (Table) 11/07/23 11/07/23 11/07/23 Range/Units 08:49 11:40 16:32 RBC (4.30-5.90) m/uL Hgb (13.0-17.5) gm/dL Hct (39.0-53.0) % Lymphocytes # (1.0-4.8) k/uL Sodium (137-145) mmol/L Chloride (98-107) mmol/L BUN (9-20) mg/dL Glucose (74-99) mg/dL POC Glucose (mg/dL) 135 H 139 H (70-110) mg/dL Procalcitonin 0.15 H (0.02-0.09) ng/mL 11/07/23 11/08/23 11/08/23 Range/Units 20:18 06:15 06:44 RBC 3.81 L (4.30-5.90) m/uL Hgb 11.7 L (13.0-17.5) gm/dL Hct 36.3 L (39.0-53.0) % Lymphocytes # 0.8 L (1.0-4.8) k/uL Sodium (137-145) mmol/L Chloride (98-107) mmol/L BUN (9-20) mg/dL Glucose (74-99) mg/dL POC Glucose (mg/dL) 158 H 152 H (70-110) mg/dL Procalcitonin (0.02-0.09) ng/mL 11/08/23 Range/Units 06:44 RBC (4.30-5.90) m/uL Hgb (13.0-17.5) gm/dL Hct (39.0-53.0) % Lymphocytes # (1.0-4.8) k/uL Sodium 136 L (137-145) mmol/L Chloride 96 L (98-107) mmol/L BUN 22 H (9-20) mg/dL Glucose 133 H (74-99) mg/dL POC Glucose (mg/dL) (70-110) mg/dL Procalcitonin (0.02-0.09) ng/mL Assessment and Plan Assessment: Acute shortness of breath, secondary to chronic atrial fibrillation, and diastolic/systolic CHF. History of nonischemic cardiomyopathy. History of hyperlipidemia. History of diabetes mellitus. History of hypertension. History of depression. Prior history of tobacco use. Plan: Plan dated 11/07/2023. The patient is feeling much better since he was admitted, back on the . He sitting in a chair next to his hospital bed. He continues on oxygen at 4 L. His peripheral edema is much improved. His breathing is much improved. Labs, x-rays, and medications are reviewed. I don't believe the patient has an active pneumonic process at this time. He denies any significant cough or phlegm production. We will continue to follow make recommendations along the way. Labs, x-rays, and medications are reviewed. Prognosis is guarded. Plan dated 11/08/2023. The patient has been weaned down to 2 L. The patient continues on Lasix therapy. Labs, x-rays, and medications are reviewed. The patient's prognosis remains guarded. We will continue to follow the patient, and make recommendations along the way. No additional recommendations at this time. Again, clinically, the patient is much improved, just in the last 24 hours. Time with Patient: Less than 30
[2023-11-08 11:35] LABS: Glucose,Whole Blood 147 mg/dL (70-110)
--- NOTE | 2023-11-08 12:11 | P.PN ---
Progress Note - Text Progress Note Date: 11/08/23 Chief Complaint: Shortness of breath 78 yo male presenting as transfer from outside hospital with acute CHF and possible concurrent pneumonia. The patient had been transferred from [facility] with chief complaint of dyspnea, found to be fluid overloaded with CHF on chest x-ray, elevated BNP, and significant peripheral edema. He was given Lasix and placed on BiPAP prior to transfer. There is also some concern for concurrent pneumonia and the patient was given azithromycin and ceftriaxone prior to transfer. His vital panel was negative. He denies central chest pain. Does report increased bilateral lower extremity edema and worsening dyspnea. He is on Eliquis with history of atrial fibrillation. Atrial fibrillation with RVR rate of 116 QRS duration 108, QTC 401 BNP and troponin are elevated, troponin 0.1 this level will be trended. The patient is started on heparin, Lasix, and metoprolol in the emergency department. Chest x-ray will be repeated in the morning. The patient will be continued on IV diuresis. November 07: I assumed care of the patient today. Patient sitting up in a chair. Breathing a bit better. Significant edema still present. Nose of IV Lasix every 12.. Discussed with patient and at the bedside. Entresto was started by cardiology November 08: Sitting which chair. Short of breath but better. Significant edema still present. Negative fluid balance. Continue IV Lasix. Discussed with patient and . Active Medications Acetaminophen (Acetaminophen Tab 325 Mg Tab) 650 mg PO Q6HR PRN PRN Reason: Mild Pain or Fever > 100.5 Alprazolam (Alprazolam 0.25 Mg Tab) 0.25 mg PO BID PRN PRN Reason: Anxiety Apixaban (Apixaban 5 Mg Tab) 5 mg PO BID [facility]; Protocol Last Admin: 11/08/23 08:33 Dose: 5 mg Atorvastatin Calcium (Atorvastatin 10 Mg Tab) 10 mg PO DAILY [facility] Last Admin: 11/08/23 08:33 Dose: 10 mg Diphenhydramine HCl (Diphenhydramine 25 Mg Cap) 25 mg PO HS PRN PRN Reason: Insomnia Last Admin: 11/06/23 23:19 Dose: 25 mg Furosemide (Furosemide 10 Mg/Ml 4 Ml Vial) 40 mg IV Q12HR [facility] Last Admin: 11/08/23 08:33 Dose: 40 mg Metformin HCl (Metformin 500 Mg Tab) 500 mg PO BID-W/MEALS [facility] Last Admin: 11/08/23 06:15 Dose: 500 mg Metoprolol Succinate (Metoprolol Succinate (Er) 50 Mg Tab.Er.24h) 50 mg PO BID [facility] Last Admin: 11/08/23 08:33 Dose: 50 mg Naloxone HCl (Naloxone 0.4 Mg/Ml 1 Ml Vial) 0.2 mg IV Q2M PRN PRN Reason: Opioid Reversal Potassium Chloride (Potassium Chloride Er 20 Meq Tab.Er) 20 meq PO DAILY [facility] Last Admin: 11/08/23 08:33 Dose: 20 meq Sacubitril/Valsartan (Sacubitril/Valsartan 24 Mg-26 Mg Tablet) 1 each PO BID [facility] Last Admin: 11/08/23 08:33 Dose: 1 each Past medical history to include: Atrial fibrillation, diabetes, hypertension, hyperlipidemia, OA, COPD Social history: Lives with his . No smoking or alcohol. Uses a walker. Physical examination: VITAL SIGNS: 98.1, 107, 20, 114/67, 95% on 2 L GENERAL: BMI 41.2, up in a recliner. EYES: Pupils equal. Conjunctiva normal. HEENT: External appearance of nose and ears normal, oral cavity grossly normal. NECK: JVD raised; masses not palpable. HEART: First and second heart sounds are normal; significant edema improved LUNGS: Respiratory rate normal; left basal fine crackles ABDOMEN: Soft, nontender, liver spleen not palpable, no masses palpable. PSYCH: Alert and oriented x3; mood and affect normal. MUSCULOSKELETAL OA. Past Medical History Past Medical History: Atrial Fibrillation, Heart Failure, Diabetes Mellitus, Hyperlipidemia, Hypertension History of Any Multi-Drug Resistant Organisms: None Reported Past Surgical History: Appendectomy, Joint Replacement Additional Past Surgical History / Comment(s): total left hip Past Anesthesia/Blood Transfusion Reactions: No Reported Reaction Additional Past Anesthesia/Blood Transfusion Reaction / Comment(s): no hx blood transfusion Past Psychological History: Depression Smoking Status: Former smoker Past Alcohol Use History: None Reported Additional Past Alcohol Use History / Comment(s): quit smoking years ago, smoked very short time Past Drug Use History: None Reported - Past Family History Mother Family Medical History: No Reported History Sister(s) Family Medical History: Cancer Additional Family Medical History / Comment(s): breast,eye INVESTIGATIONS, reviewed in the clinical context: November 07: White count 9.1 hemoglobin 11.8 platelets 249 potassium 4.1 BUN 26 creatinine 1.07 2-D echocardiogram: EF 30-35%. Hypokinesis of the anteroapical anteroseptal and anterolateral wall, moderate pulmonary hypertension, severe right ventricle dilatation Assessment: 1. Acute exacerbation CHF from systolic and diastolic dysfunction, EF 30-35%, slow to respond Continue Lasix 40 mg IV every 12 hours; strict BLADE's, daily weights, renal function and electrolytes -- Low salt and fluid restricted 1500 cc diet Cardiology following Entresto started 2. Elevated troponin; secondary to CHF. No ACS 3. Mild leukocytosis; likely reactive ; no signs of infection; we'll monitor CBC 4. Mild AK I; BUN is elevated; creatinine remains within normal limit - We will monitor strict BLADE's, daily weights, renal function and electrolytes; avoid nephrotoxins and hypotension 5. Persistent Atrial fibrillation with RVR on presentation; metoprolol; eliquis 5 mg by mouth twice a day 6. Essential Hypertension; Toprol XL 50 mg twice a day 7. Hyperlipidemia; Lipitor 10 mg daily 8. Diabetes mellitus; Continue monitor Accu-Cheks with insulin sliding scale Glucophage -Primary osteoarthritis Pain medications as needed -COPD Albuterol when necessary -BPH -Morbid obesity BMI 41.3 -DO NOT RESUSCITATE Discussed with the patient and the . Lower extremity Darwin wrap.
--- NOTE | 2023-11-08 13:16 | P.PN ---
Subjective Progress Note Date: 11/08/23 The patient is a 78-year-old male who follows in the office with Dr. Scott. He presented to [facility] with worsening shortness of breath. He opted to be transferred to be closer to his senior center director. He was found to be in acute congestive heart failure. Echocardiogram reveals reduced ejection fraction at 30% with anterior hypokinesis. He has a known long-standing history of persistent atrial fibrillation as well as lymphedema. The patient was interviewed and examined sitting in the recliner chair. He states he has voiding more frequently over the last 24 hours. He states his breathing has improved. No chest pain. GENERAL: Well-appearing, well-nourished and in no acute distress. NECK: Supple without JVD or thyromegaly. LUNGS: Breath sounds diminished to auscultation bilaterally. Respiration equal and unlabored. No wheezes, rales or rhonchi. HEART: Irregular rate and rhythm without murmurs, rubs or gallops. S1 and S2 heard. EXTREMITIES: Normal range of motion, 4+ lower extremity edema. Hyperpigmentation. TELEMETRY: Persistent atrial fibrillation with heart rates in the 90's IMPRESSION: Congestive heart failure, systolic Nonischemic cardiomyopathy, EF 30-35% Persistent atrial fibrillation Type 2 diabetes Hypertension Hyperlipidemia Lymphedema PLAN: Continue current medication regimen including Entresto Leg elevation and compression wraps for lymphedema Further recommendations based on clinical course I am dictating on behalf of Dr Shiraz Joyce's history/physical and assessment/plan. Objective - Vital Signs Vital signs: Vital Signs Temp 98.1 F 11/08/23 11:30 Pulse 107 H 11/08/23 11:30 Resp 20 11/08/23 11:30 BP 114/67 11/08/23 11:30 Pulse Ox 95 11/08/23 11:30 FiO2 32 11/06/23 13:40 Intake & Output 11/07/23 11/08/23 11/08/23 18:59 06:59 18:59 Intake Total 540 746 360 Output Total 1350 1300 1000 Balance -810 -554 -640 Weight 133.4 kg Intake: IV 10 Invasive Line 1 10 Oral 540 736 360 Output: Urine 1350 1300 1000 Other: Voiding Method External Catheter External Catheter - Labs CBC & Chem 7: 11/08/23 06:44 11/08/23 06:44 Labs: Abnormal Lab Results - Last 24 Hours (Table) 11/07/23 11/07/23 11/07/23 Range/Units 08:49 16:32 20:18 RBC (4.30-5.90) m/uL Hgb (13.0-17.5) gm/dL Hct (39.0-53.0) % Lymphocytes # (1.0-4.8) k/uL Sodium (137-145) mmol/L Chloride (98-107) mmol/L BUN (9-20) mg/dL Glucose (74-99) mg/dL POC Glucose (mg/dL) 139 H 158 H (70-110) mg/dL Procalcitonin 0.15 H (0.02-0.09) ng/mL 11/08/23 11/08/23 11/08/23 Range/Units 06:15 06:44 06:44 RBC 3.81 L (4.30-5.90) m/uL Hgb 11.7 L (13.0-17.5) gm/dL Hct 36.3 L (39.0-53.0) % Lymphocytes # 0.8 L (1.0-4.8) k/uL Sodium 136 L (137-145) mmol/L Chloride 96 L (98-107) mmol/L BUN 22 H (9-20) mg/dL Glucose 133 H (74-99) mg/dL POC Glucose (mg/dL) 152 H (70-110) mg/dL Procalcitonin (0.02-0.09) ng/mL 11/08/23 Range/Units 11:34 RBC (4.30-5.90) m/uL Hgb (13.0-17.5) gm/dL Hct (39.0-53.0) % Lymphocytes # (1.0-4.8) k/uL Sodium (137-145) mmol/L Chloride (98-107) mmol/L BUN (9-20) mg/dL Glucose (74-99) mg/dL POC Glucose (mg/dL) 147 H (70-110) mg/dL Procalcitonin (0.02-0.09) ng/mL
[2023-11-08 16:44] LABS: Glucose,Whole Blood 136 mg/dL (70-110)
[2023-11-08 19:56] LABS: Glucose,Whole Blood 138 mg/dL (70-110)
[2023-11-09] MEDS: ALPRAZolam 0.25 MG TAB PO PRN ×2 (01:10→23:11)
[2023-11-09 06:15] LABS: Glucose,Whole Blood 138 mg/dL (70-110)
[2023-11-09] MEDS: metFORMIN 500 MG TAB PO SCH ×2 (06:35→16:30)
[2023-11-09] MEDS: METOPROLOL SUCCINATE (ER) 50 MG TAB.ER.24H PO SCH (07:42)
[2023-11-09] MEDS: ATORVASTATIN 10 MG TAB PO SCH (07:42)
[2023-11-09] MEDS: FUROSEMIDE 10 MG/ML 4 ML VIAL IV SCH (07:42)
[2023-11-09] MEDS: POTASSIUM CHLORIDE ER 20 MEQ TAB.ER PO SCH (07:43)
[2023-11-09] MEDS: APIXABAN 5 MG TAB PO SCH ×2 (07:43→19:53)
[2023-11-09] MEDS: SACUBITRIL/VALSARTAN 24 MG-26 MG TABLET PO SCH ×2 (07:43→19:53)
[2023-11-09 09:13] LABS: Basophils # (A) 0.1 k/uL (0-0.2); Basophils % (A) 1 %; Eosinophils # (A) 0.4 k/uL (0-0.7); Eosinophils % (A) 5 %; HCT 41.1 % (39.0-53.0); HGB 13.1 gm/dL (13.0-17.5); Hypochromasia Slight; Lymphocytes # (A) 0.7 k/uL (1.0-4.8); Lymphocytes % (A) 11 %; MCH 30.4 pg (25.0-35.0); MCHC 31.8 g/dL (31.0-37.0); MCV 95.8 fL (80.0-100.0); Mean Platelet Volume 7.6; Monocytes # (A) 0.4 k/uL (0-1.0); Monocytes % (A) 6 %; Neutrophils # (A) 4.9 k/uL (1.3-7.7); Neutrophils % (A) 75 %; Platelet Count 303 k/uL (150-450); RBC 4.29 m/uL (4.30-5.90); WBC 6.5 k/uL (3.8-10.6)
[2023-11-09 09:26] LABS: African American GFR (CKD) >90 (>60 ml/min/1.73 sqM); Anion Gap 14 mmol/L; Blood Urea Nitrogen 21 mg/dL (9-20); Calcium 9.2 mg/dL (8.4-10.2); Carbon Dioxide 29 mmol/L (22-30); Chloride 95 mmol/L (98-107); Glucose 229 mg/dL (74-99); Non-African American GFR(CKD) 83 (>60 ml/min/1.73 sqM); Potassium 4.1 mmol/L (3.5-5.1); Sodium 138 mmol/L (137-145)
--- NOTE | 2023-11-09 11:17 | P.PN ---
Subjective Progress Note Date: 11/09/23 Principal diagnosis: Congestive heart failure. Pulmonary consult dated 11/07/2023. 78-year-old male who was seen in the emergency department, on November 08, complaining of shortness of breath. He apparently was brought into the ER, by EMS, and came from [facility], with fluid overload, CHF, and elevated BNP, and significant lower extremity edema. According to the patient, confirmed by the patient's , he was not taking his Lasix. He doesn't like to take his Lasix, when he is away from home. Anyway, he is seen today in room 365. The patient's pro-calcitonin level was 0.18. He continues on oxygen at 4 L. No IV fluids. His N-terminal proBNP was elevated. His troponins were elevated. The patient does smoke heavily in the past. He does not use oxygen at home. White count 9.1, hemoglobin 11.8, hematocrit 37.4, and platelet count was normal. Sodium 135, potassium 4.1, chlorides 95, CO2 31, BUN 26, and creatinine 1.07. Troponins were 0.139, and 0.148. N-terminal proBNP was 2190. Chest x-ray showed cardiomegaly, with interstitial edema and pulmonary vascular congestion. The patient is currently on albuterol treatments, Lasix, and his regular cardiac medications. The patient is feeling better, that being admitted. Progress note dated 11/08/2023. 78-year-old male seen in consultation yesterday. He came into the emergency department complaining of shortness of breath, weight gain, and lower extremity edema. The patient was found to have congestive heart failure. He is feeling better today. He seen in room 365. He's not receiving any IV fluids. He is on 2 L by nasal cannula. Current labs include a white count 8.2, hemoglobin 11.7, hematocrit 36.3, and a platelet count of 265,000. Sodium 136, potassium 4.3, chloride 96, CO2 30, BUN 22, and creatinine 0.82. Progress note dated 11/09/2023. The patient is seen today in room 365. The patient continues on oxygen at 2 L. No IV fluids. His lower extremity edema is improved, and his legs are wrapped with bandages. He's feeling much improved. Current labs white count 6.5, hemoglobin 13.1, hematocrit 41.1, and a normal platelet count. Sodium 138, potassium 4.1, chlorides 95, CO2 29, anion gap 14, BUN 21, creatinine 0.86. The closest to 29. Calcium 9.2. Objective - Vital Signs Vital signs: Vital Signs Temp 97.6 F 11/09/23 11:00 Pulse 125 H 11/09/23 11:00 Resp 18 11/09/23 11:00 BP 122/56 11/09/23 11:00 Pulse Ox 94 L 11/09/23 11:00 FiO2 32 11/06/23 13:40 Intake & Output 11/08/23 11/09/23 11/09/23 18:59 06:59 18:59 Intake Total 600 540 10 Output Total 2000 1550 1300 Balance -1400 -1010 -1290 Weight 132.4 kg Intake: IV 10 Invasive Line 1 10 Oral 600 540 Output: Urine 1999 1550 1300 Male - External 300 Other: Voiding Method External Catheter External Catheter External Catheter # Bowel Movements 1 - Exam No acute distress, oriented 3. Currently on 2 L, with saturations of 96 %. Room air saturation is 94%. No mary ann respiratory distress. No use of accessory muscles, or audible wheezing. HEENT examination is grossly unremarkable. Mucous membranes are moist. No oral lesions. Neck supple. Full range of motion. No adenopathy thyromegaly or neck vein distention. Cardiovascular examination reveals an irregular rhythm and rate. S1-S2 normal. No S3 or S4. No discernible murmur noted. Heart sounds are distant. Heart rate 95 bpm. Lungs reveal bibasilar crackles. No wheezes. No rhonchi. Breath sounds are equal bilaterally. 2 L saturation is 96%. Room air saturation is 94%. Abdomen soft bowel sounds are heard. No masses or tenderness. Extremities are intact. No cyanosis or clubbing. Slight edema is noted. Bi lateral lower extremities are wrapped with an SINDY bandage. Skin is without rash or lesion. Neurologic examination is brief but nonfocal. - Labs CBC & Chem 7: 11/09/23 08:37 11/09/23 08:37 Labs: Abnormal Lab Results - Last 24 Hours (Table) 11/08/23 11/08/23 11/08/23 Range/Units 11:34 16:42 19:54 RBC (4.30-5.90) m/uL Lymphocytes # (1.0-4.8) k/uL Chloride (98-107) mmol/L BUN (9-20) mg/dL Glucose (74-99) mg/dL POC Glucose (mg/dL) 147 H 136 H 138 H (70-110) mg/dL 11/09/23 11/09/23 11/09/23 Range/Units 06:08 08:37 08:37 RBC 4.29 L (4.30-5.90) m/uL Lymphocytes # 0.7 L (1.0-4.8) k/uL Chloride 95 L (98-107) mmol/L BUN 21 H (9-20) mg/dL Glucose 229 H (74-99) mg/dL POC Glucose (mg/dL) 138 H (70-110) mg/dL Assessment and Plan Assessment: Acute shortness of breath, secondary to chronic atrial fibrillation, and diastolic/systolic CHF. History of nonischemic cardiomyopathy. History of hyperlipidemia. History of diabetes mellitus. History of hypertension. History of depression. Prior history of tobacco use. Plan: Plan dated 11/07/2023. The patient is feeling much better since he was admitted, back on the . He sitting in a chair next to his hospital bed. He continues on oxygen at 4 L. His peripheral edema is much improved. His breathing is much improved. Labs, x-rays, and medications are reviewed. I don't believe the patient has an active pneumonic process at this time. He denies any significant cough or phlegm produ ction. We will continue to follow make recommendations along the way. Labs, x- rays, and medications are reviewed. Prognosis is guarded. Plan dated 11/08/2023. The patient has been weaned down to 2 L. The patient continues on Lasix therapy. Labs, x-rays, and medications are reviewed. The patient's prognosis remains guarded. We will continue to follow the patient, and make recommendations along the way. No additional recommendations at this time. Again, clinically, the patient is much improved, just in the last 24 hours. Plan dated 11/09/2023. The patient is currently on a couple liters of oxygen. He is resting comfortably in the chair, next to his hospital bed. He is not receiving any IV fluids. His breathing is much improved. Labs, x-rays, medications are reviewed. The patient's overall prognosis is guarded. We will continue to follow the patient, make recommendations along the way. His room air saturation is 94%. Time with Patient: Less than 30
[2023-11-09 11:43] LABS: Glucose,Whole Blood 150 mg/dL (70-110)
--- NOTE | 2023-11-09 12:34 | P.PN ---
Subjective Progress Note Date: 11/09/23 The patient is a 78-year-old male who follows in the office with Dr. Claros. He presented to [facility] with worsening shortness of breath. He opted to be transferred to be closer to his family independence case manager. He was found to be in acute congestive heart failure. Echocardiogram reveals reduced ejection fraction at 30% with anterior hypokinesis. He has a known long-standing history of persistent atrial fibrillation as well as lymphedema. Over the course of his hospitalization he has been diuresed and initiated on Entresto. The patient was interviewed and examined sitting in the recliner chair. He states his breathing has improved. He currently denies any chest pain. GENERAL: Well-appearing, well-nourished and in no acute distress. NECK: Supple without JVD or thyromegaly. LUNGS: Breath sounds diminished to auscultation bilaterally. Respiration equal and unlabored. No wheezes, rales or rhonchi. HEART: Irregular rate and rhythm without murmurs, rubs or gallops. S1 and S2 heard. EXTREMITIES: Normal range of motion, 4+ lower extremity edema. Hyperpigmentation. TELEMETRY: Persistent atrial fibrillation with heart rates in the low 100s IMPRESSION: Congestive heart failure, systolic Nonischemic cardiomyopathy, EF 30-35% Persistent atrial fibrillation Type 2 diabetes Hypertension Hyperlipidemia Lymphedema PLAN: Increase metoprolol to 75 mg twice daily Start spironolactone tomorrow Check BMP and magnesium Further recommendations to follow I am dictating on behalf of Dr Shiraz Joyce's history/physical and assessment/plan. Objective - Vital Signs Vital signs: Vital Signs Temp 97.6 F 11/09/23 11:00 Pulse 125 H 11/09/23 11:00 Resp 18 11/09/23 11:00 BP 122/56 11/09/23 11:00 Pulse Ox 94 L 11/09/23 11:00 FiO2 32 11/06/23 13:40 Intake & Output 11/08/23 11/09/23 11/09/23 18:59 06:59 18:59 Intake Total 600 540 10 Output Total 1999 1550 1300 Balance -1400 -1010 -1290 Weight 132.4 kg Intake: IV 10 Invasive Line 1 10 Oral 600 540 Output: Urine 1999 1550 1300 Male - External 300 Other: Voiding Method External Catheter External Catheter External Catheter # Bowel Movements 1 1 - Labs CBC & Chem 7: 11/09/23 08:37 11/09/23 08:37 Labs: Abnormal Lab Results - Last 24 Hours (Table) 11/08/23 11/08/23 11/09/23 Range/Units 16:42 19:54 06:08 RBC (4.30-5.90) m/uL Lymphocytes # (1.0-4.8) k/uL Chloride (98-107) mmol/L BUN (9-20) mg/dL Glucose (74-99) mg/dL POC Glucose (mg/dL) 136 H 138 H 138 H (70-110) mg/dL 11/09/23 11/09/23 11/09/23 Range/Units 08:37 08:37 11:41 RBC 4.29 L (4.30-5.90) m/uL Lymphocytes # 0.7 L (1.0-4.8) k/uL Chloride 95 L (98-107) mmol/L BUN 21 H (9-20) mg/dL Glucose 229 H (74-99) mg/dL POC Glucose (mg/dL) 150 H (70-110) mg/dL
--- NOTE | 2023-11-09 14:55 | P.PN ---
Progress Note - Text Progress Note Date: 11/09/23 Chief Complaint: Shortness of breath 78 yo male presenting as transfer from outside hospital with acute CHF and possible concurrent pneumonia. The patient had been transferred from [facility] with chief complaint of dyspnea, found to be fluid overloaded with CHF on chest x-ray, elevated BNP, and significant peripheral edema. He was given Lasix and placed on BiPAP prior to transfer. There is also some concern for concurrent pneumonia and the patient was given azithromycin and ceftriaxone prior to transfer. His vital panel was negative. He denies central chest pain. Does report increased bilateral lower extremity edema and worsening dyspnea. He is on Eliquis with history of atrial fibrillation. Atrial fibrillation with RVR rate of 116 QRS duration 108, QTC 401 BNP and troponin are elevated, troponin 0.1 this level will be trended. The patient is started on heparin, Lasix, and metoprolol in the emergency department. Chest x-ray will be repeated in the morning. The patient will be continued on IV diuresis. November 07: I assumed care of the patient today. Patient sitting up in a chair. Breathing a bit better. Significant edema still present. Nose of IV Lasix every 12.. Discussed with patient and at the bedside. Entresto was started by cardiology November 08: Sitting which chair. Short of breath but better. Significant edema still present. Negative fluid balance. Continue IV Lasix. Discussed with patient and . 11/09/2023: Patient has been negative fluid balance. Swished over by cardiology to oral Lasix. Add oral hydrochlorothiazide for 3 doses. Aldactone added. Discussed Active Medications Acetaminophen (Acetaminophen Tab 325 Mg Tab) 650 mg PO Q6HR PRN PRN Reason: Mild Pain or Fever > 100.5 Alprazolam (Alprazolam 0.25 Mg Tab) 0.25 mg PO BID PRN PRN Reason: Anxiety Last Admin: 11/09/23 01:10 Dose: 0.25 mg Apixaban (Apixaban 5 Mg Tab) 5 mg PO BID [facility]; Protocol Last Admin: 11/09/23 07:43 Dose: 5 mg Atorvastatin Calcium (Atorvastatin 10 Mg Tab) 10 mg PO DAILY [place] Last Admin: 11/09/23 07:42 Dose: 10 mg Diphenhydramine HCl (Diphenhydramine 25 Mg Cap) 25 mg PO HS PRN PRN Reason: Insomnia Last Admin: 11/06/23 23:19 Dose: 25 mg Furosemide (Furosemide 20 Mg Tab) 60 mg PO BID@0900,1600 [facility] Hydrochlorothiazide (Hydrochlorothiazide 25 Mg Tab) 25 mg PO TID [facility] Metformin HCl (Metformin 500 Mg Tab) 500 mg PO BID-W/MEALS [facility] Last Admin: 11/09/23 06:35 Dose: 500 mg Metoprolol Succinate (Metoprolol Succinate (Er) 25 Mg Tab.Er.24h) 75 mg PO BID [facility] Naloxone HCl (Naloxone 0.4 Mg/Ml 1 Ml Vial) 0.2 mg IV Q2M PRN PRN Reason: Opioid Reversal Sacubitril/Valsartan (Sacubitril/Valsartan 24 Mg-26 Mg Tablet) 1 each PO BID [facility] Last Admin: 11/09/23 07:43 Dose: 1 each Spironolactone (Spironolactone 25 Mg Tab) 25 mg PO DAILY [facility] Past medical history to include: Atrial fibrillation, diabetes, hypertension, hyperlipidemia, OA, COPD Social history: Lives with his . No smoking or alcohol. Uses a walker. Physical examination: VITAL SIGNS: 97.6, 120, 18, 1 22 x 56, 94% room air GENERAL: BMI 41.2, up in a recliner. EYES: Pupils equal. Conjunctiva normal. HEENT: External appearance of nose and ears normal, oral cavity grossly normal. NECK: JVD raised; masses not palpable. HEART: First and second heart sounds are normal; significant edema improved LUNGS: Respiratory rate normal; left basal fine crackles ABDOMEN: Soft, nontender, liver spleen not palpable, no masses palpable. PSYCH: Alert and oriented x3; mood and affect normal. MUSCULOSKELETAL OA. Past Medical History Past Medical History: Atrial Fibrillation, Heart Failure, Diabetes Mellitus, Hyperlipidemia, Hypertension History of Any Multi-Drug Resistant Organisms: None Reported Past Surgical History: Appendectomy, Joint Replacement Additional Past Surgical History / Comment(s): total left hip Past Anesthesia/Blood Transfusion Reactions: No Reported Reaction Additional Past Anesthesia/Blood Transfusion Reaction / Comment(s): no hx blood transfusion Past Psychological History: Depression Smoking Status: Former smoker Past Alcohol Use History: None Reported Additional Past Alcohol Use History / Comment(s): quit smoking years ago, smoked very short time Past Drug Use History: None Reported - Past Family History Mother Family Medical History: No Reported History Sister(s) Family Medical History: Cancer Additional Family Medical History / Comment(s): breast,eye INVESTIGATIONS, reviewed in the clinical context: November 07: White count 9.1 hemoglobin 11.8 platelets 249 potassium 4.1 BUN 26 creatinine 1.07 2-D echocardiogram: EF 30-35%. Hypokinesis of the anteroapical anteroseptal and anterolateral wall, moderate pulmonary hypertension, severe right ventricle dilatation Assessment: 1. Acute exacerbation CHF from systolic and diastolic dysfunction, EF 30-35%, improving A 60-60 mg by mouth twice a day; strict BLADE's, daily weights, renal function and electrolytes -- Low salt and fluid restricted 1500 cc diet Cardiology following Entresto , Aldactone added 2. Elevated troponin; secondary to CHF. No ACS 3. Mild leukocytosis; likely reactive ; no signs of infection; we'll monitor CBC 4. Mild AK I; BUN is elevated; creatinine remains within normal limit - We will monitor strict BLADE's, daily weights, renal function and electrolytes; avoid nephrotoxins and hypotension 5. Persistent Atrial fibrillation with RVR on presentation; metoprolol; eliquis 5 mg by mouth twice a day 6. Essential Hypertension; Toprol XL 50 mg twice a day 7. Hyperlipidemia; Lipitor 10 mg daily 8. Diabetes mellitus; Continue monitor Accu-Cheks with insulin sliding scale Glucophage -Primary osteoarthritis Pain medications as needed -COPD Albuterol when necessary -BPH -Morbid obesity BMI 41.3 -DO NOT RESUSCITATE Changed over to oral Lasix. Aldactone added. Follow labs
[2023-11-09] MEDS: hydroCHLOROthiazide 25 MG TAB PO SCH ×3 (15:39→23:10)
[2023-11-09] MEDS: SPIRONOLACTONE 25 MG TAB PO SCH (15:39)
[2023-11-09] MEDS: FUROSEMIDE 20 MG TAB PO SCH (16:30)
[2023-11-09 16:35] LABS: Glucose,Whole Blood 114 mg/dL (70-110)
[2023-11-09] MEDS: METOPROLOL SUCCINATE (ER) 25 MG TAB.ER.24H PO SCH (19:52)
[2023-11-09 19:55] LABS: Glucose,Whole Blood 184 mg/dL (70-110)
[2023-11-10 06:25] LABS: Glucose,Whole Blood 168 mg/dL (70-110)
[2023-11-10] MEDS: metFORMIN 500 MG TAB PO SCH ×2 (06:42→16:42)
[2023-11-10] MEDS ORDERED: SPIRONOLACTONE 25 MG TAB PO SCH (09:00)
[2023-11-10] MEDS: ATORVASTATIN 10 MG TAB PO SCH (09:25)
[2023-11-10] MEDS: SACUBITRIL/VALSARTAN 24 MG-26 MG TABLET PO SCH ×2 (09:25→20:22)
[2023-11-10] MEDS: hydroCHLOROthiazide 25 MG TAB PO SCH (09:25)
[2023-11-10] MEDS: SPIRONOLACTONE 25 MG TAB PO SCH (09:25)
[2023-11-10] MEDS: APIXABAN 5 MG TAB PO SCH ×2 (09:26→20:22)
[2023-11-10] MEDS: METOPROLOL SUCCINATE (ER) 25 MG TAB.ER.24H PO SCH ×2 (09:26→20:22)
[2023-11-10] MEDS: FUROSEMIDE 20 MG TAB PO SCH ×2 (09:26→16:42)
--- NOTE | 2023-11-10 11:14 | P.PN ---
Subjective Progress Note Date: 11/10/23 A pleasant 78-year-old gentleman who follows in the office with Dr. Asher. Initially presented to [facility] with worsening shortness of breath. He has a history of persistent atrial fibrillation, nonischemic cardiomyopathy, hypertension, hyperlipidemia, type 2 diabetes. Echocardiogram revealed EF 30- 35%. Medication optimization as an outpatient has been an issue in the past due to cost. This admission he's been initiated on spironolactone as well as Entresto. His breathing is feeling better, back to its baseline. Continues to have lower extremity edema. Labs from this morning are pending. Objective - Vital Signs Vital signs: Vital Signs Temp 97.3 F L 11/10/23 08:00 Pulse 79 11/10/23 08:00 Resp 18 11/10/23 08:00 BP 122/65 11/10/23 08:00 Pulse Ox 93 L 11/10/23 08:00 FiO2 32 11/06/23 13:40 Intake & Output 11/09/23 11/10/23 11/10/23 18:59 06:59 18:59 Intake Total 20 462 118 Output Total 1300 2560 Balance -1280 -2098 118 Weight 130 kg Intake: IV 20 Invasive Line 1 20 Oral 462 118 Output: Urine 1300 2560 Male - External 300 Other: Voiding Method External Catheter External Catheter External Catheter # Bowel Movements 1 1 - Exam GENERAL: Well-appearing, well-nourished and in no acute distress. NECK: Supple without JVD or thyromegaly. LUNGS: Breath sounds diminished to auscultation bilaterally. Respiration equal and unlabored. No wheezes, rales or rhonchi. HEART: Irregular rate and rhythm without murmurs, rubs or gallops. S1 and S2 heard. EXTREMITIES: 3+ lower extremity edema. Hyperpigmentation. - Labs CBC & Chem 7: 11/09/23 08:37 11/09/23 08:37 Labs: Abnormal Lab Results - Last 24 Hours (Table) 11/09/23 11/09/23 11/09/23 Range/Units 11:41 16:33 19:53 POC Glucose (mg/dL) 150 H 114 H 184 H (70-110) mg/dL 11/10/23 Range/Units 06:24 POC Glucose (mg/dL) 168 H (70-110) mg/dL Assessment and Plan Assessment: #1 acute on chronic heart failure with reduced ejection fraction #2 nonischemic cardiomyopathy #3 persistent atrial fibrillation, rate controlled and anticoagulated #4 hypertension #5 hyperlipidemia #6 type 2 diabetes Plan: From cardiology perspective medications were reviewed and we will continue the same. If renal function is stable may consider adding SGLT2 inhibitor. We will continue to follow the patient and provide further recommendations accordingly. PRINCIPAL ARCHAEOLOGIST note has been reviewed, I agree with a documented findings and plan of care. Patient was seen and examined.
[2023-11-10 11:19] LABS: African American GFR (CKD) >90 (>60 ml/min/1.73 sqM); Anion Gap 13 mmol/L; Blood Urea Nitrogen 21 mg/dL (9-20); Calcium 9.4 mg/dL (8.4-10.2); Carbon Dioxide 29 mmol/L (22-30); Chloride 94 mmol/L (98-107); Glucose 137 mg/dL (74-99); Magnesium 1.5 mg/dL (1.6-2.3); Non-African American GFR(CKD) 82 (>60 ml/min/1.73 sqM); Potassium 4.2 mmol/L (3.5-5.1); Sodium 136 mmol/L (137-145)
[2023-11-10 11:40] LABS: Glucose,Whole Blood 150 mg/dL (70-110)
[2023-11-10 14:13] VITALS: BMI 39.9
--- NOTE | 2023-11-10 16:05 | P.PN ---
Subjective Progress Note Date: 11/10/23 78-year-old male who was seen in the emergency department, on November 08, complaining of shortness of breath. He apparently was brought into the ER, by EMS, and came from [facility], with fluid overload, CHF, and elevated BNP, and significant lower extremity edema. According to the patient, confirmed by the patient's , he was not taking his Lasix. He doesn't like to take his Lasix, when he is away from home. Anyway, he is seen today in room 365. The patient's pro-calcitonin level was 0.18. He continues on oxygen at 4 L. No IV fluids. His N-terminal proBNP was elevated. His troponins were elevated. The patient does smoke heavily in the past. He does not use oxygen at home. White count 9.1, hemoglobin 11.8, hematocrit 37.4, and platelet count was normal. Sodium 135, potassium 4.1, chlorides 95, CO2 31, BUN 26, and creatinine 1.07. Troponins were 0.139, and 0.148. N-terminal proBNP was 2190. Chest x-ray showed cardiomegaly, with interstitial edema and pulmonary vascular congestion. The patient is currently on albuterol treatments, Lasix, and his regular cardiac medications. The patient is feeling better, that being admitted. Progress note dated 11/08/2023. 78-year-old male seen in consultation yesterday. He came into the emergency department complaining of shortness of breath, weight gain, and lower extremity edema. The patient was found to have congestive heart failure. He is feeling better today. He seen in room 365. He's not receiving any IV fluids. He is on 2 L by nasal cannula. Current labs include a white count 8.2, hemoglobin 11.7, hematocrit 36.3, and a platelet count of 265,000. Sodium 136, potassium 4.3, chloride 96, CO2 30, BUN 22, and creatinine 0.82. Progress note dated 11/09/2023. The patient is seen today in room 365. The patient continues on oxygen at 2 L. No IV fluids. His lower extremity edema is improved, and his legs are wrapped with bandages. He's feeling much improved. Current labs white count 6.5, hemoglobin 13.1, hematocrit 41.1, and a normal platelet count. Sodium 138, potassium 4.1, chlorides 95, CO2 29, anion gap 14, BUN 21, creatinine 0.86. The closest to 29. Calcium 9.2. This evaluation of 11/10/2023, the patient is stable. The patient is currently on room air oxygen. Denies having any significant respiratory distress. He also has some edema lower extremities bilaterally. The patient is currently on diuretics and the patient is on a, the patient Lasix and Aldactone. Lower extremity edema is improving. He has systolic heart failure with an ejection fraction of 30-35% along with severe RV dilatation. He was started on entresto by cardiology. Lasix is being admitted is a 60 mg by mouth twice a day. He was also started on Farxiga. BUN is at 21 with a creatinine of 0.8. Sodium level is at 136. Objective - Vital Signs Vital signs: Vital Signs Temp 97.3 F L 11/10/23 08:00 Pulse 88 11/10/23 12:00 Resp 18 11/10/23 08:00 BP 105/68 11/10/23 12:00 Pulse Ox 94 L 11/10/23 12:00 FiO2 32 11/06/23 13:40 Intake & Output 11/09/23 11/10/23 11/10/23 18:59 06:59 18:59 Intake Total 20 462 118 Output Total 1300 2560 Balance -1280 -2098 118 Weight 130 kg Intake: IV 20 Invasive Line 1 20 Oral 462 118 Output: Urine 1300 2560 Male - External 300 Other: Voiding Method External Catheter External Catheter External Catheter # Bowel Movements 1 1 - Exam No acute distress, oriented 3. Currently on room air oxygen Room air saturation is 94%. No mary ann respiratory distress. No use of accessory muscles, or audible wheezing. HEENT examination is grossly unremarkable. Mucous membranes are moist. No oral lesions. Neck supple. Full range of motion. No adenopathy thyromegaly or neck vein distention. Cardiovascular examination reveals an irregular rhythm and rate. S1-S2 normal. No S3 or S4. No discernible murmur noted. Heart sounds are distant. Lungs reveal bibasilar crackles. No wheezes. No rhonchi. Breath sounds are equal bilaterally. Abdomen soft bowel sounds are heard. No masses or tenderness. Extremities are intact. No cyanosis or clubbing. Slight edema is noted. Bilateral lower extremities are wrapped with an SINDY bandage. Skin is without rash or lesion. Neurologic examination is brief but nonfocal. - Labs CBC & Chem 7: 11/09/23 08:37 11/10/23 10:16 Labs: Abnormal Lab Results - Last 24 Hours (Table) 11/09/23 11/09/23 11/10/23 Range/Units 16:33 19:53 06:24 Sodium (137-145) mmol/L Chloride (98-107) mmol/L BUN (9-20) mg/dL Glucose (74-99) mg/dL POC Glucose (mg/dL) 114 H 184 H 168 H (70-110) mg/dL Magnesium (1.6-2.3) mg/dL 11/10/23 11/10/23 Range/Units 10:16 11:39 Sodium 136 L (137-145) mmol/L Chloride 94 L (98-107) mmol/L BUN 21 H (9-20) mg/dL Glucose 137 H (74-99) mg/dL POC Glucose (mg/dL) 150 H (70-110) mg/dL Magnesium 1.5 L (1.6-2.3) mg/dL Assessment and Plan Plan: Acute hypoxic respiratory failure secondary to CHF, currently on room air oxygen Acute shortness of breath, secondary to chronic atrial fibrillation, and diastolic/systolic CHF. Systolic heart failure with an ejection fraction of 30-35% and severe RV dilatation. The patient is known to have History of nonischemic cardiomyopathy. Lower extremity edema is improving History of hyperlipidemia. History of diabetes mellitus. History of hypertension. History of depression. Prior history of tobacco use. Plan: continue optimizing CHF and the patient is currently on a combination of Entresto, farxiga , Lasix and Aldactone Currently on room air oxygen Lower extremity edema is improving Overall respiratory status is stable and we'll continue to follow.
[2023-11-10 16:33] LABS: Glucose,Whole Blood 159 mg/dL (70-110)
[2023-11-10] MEDS: DAPAGLIFLOZIN PROPANEDIOL 10 MG TABLET PO SCH (16:42)
--- NOTE | 2023-11-10 18:24 | CDI ---
Documentation Clarification Form Date: 11/10/2023 06:07:04 PM From: Antoinette Taylor RN CCDS Phone: [phone] Admit Date: 11/05/2023 06:17:00 PM Patient Name: Harvey Acosta Visit Number: [id number] Discharge Date: ATTENTION: The Clinical Documentation Specialists (CDI) and [facility] Coding Staff appreciate your assistance in clarifying documentation. Please respond to the clarification below the line at the bottom and electronically sign. The CDI & [facility] Coding staff will review the response and follow-up if needed. Please note: Queries are made part of the Legal Health Record. If you have any questions, please contact the author of this message via ITS. Dr. Lakeshia Beckham MD Elevated troponin; secondary to CHF, 11/09, Medicine note. Additional clarification regarding the Troponin Lab value is requested. Patient History/Risk Factors: 78-year-old male presented from outside hospital with acute CHF on CXR and elevated BNP with significant peripheral edema. Medical History: CHF, Atrial fibrillation, Heart failure and HTN. 11/06, H&P. Clinical Indicators: Troponin, 11/05: 0.100; 0.139; 11/06 0.148 EKG Results, 11/06 Cardiology note: Atrial fibrillation, moderate ventricular rate of about 110 beats per minute and nonspecific [id number] with isolated PVCs. Treatment: 11/05 11/06 Heparin IVPB, Lopressor; 11/06 -11/09 Lasix IV 40mg Q12H; 11/07 11/09 Toprol XL 50mg PO BID; 11/09 Toprol XL 75mg PO BID; 11/09- 11/10 Hydrodiuril 25mg PO TID x 4 doses, 11/09 Lasix 60mg PO BID; 11/10 Farxiga 10mg PO Daily. Please clarify the etiology of the Troponins, if known: [ x] Type 2 SD due to Acute Exacerbation of Heart Failure. [ ] Troponin Levels not clinically significant [ ] Unable to determine [ ] Other Condition, please specify (Template Last Revised: January 2021) MTDD
[2023-11-10 19:51] LABS: Glucose,Whole Blood 125 mg/dL (70-110)
--- NOTE | 2023-11-10 20:08 | P.PN ---
Progress Note - Text Progress Note Date: 11/10/23 Chief Complaint: Shortness of breath 78 yo male presenting as transfer from outside hospital with acute CHF and possible concurrent pneumonia. The patient had been transferred from [facility] with chief complaint of dyspnea, found to be fluid overloaded with CHF on chest x-ray, elevated BNP, and significant peripheral edema. He was given Lasix and placed on BiPAP prior to transfer. There is also some concern for concurrent pneumonia and the patient was given azithromycin and ceftriaxone prior to transfer. His vital panel was negative. He denies central chest pain. Does report increased bilateral lower extremity edema and worsening dyspnea. He is on Eliquis with history of atrial fibrillation. Atrial fibrillation with RVR rate of 116 QRS duration 108, QTC 401 BNP and troponin are elevated, troponin 0.1 this level will be trended. The patient is started on heparin, Lasix, and metoprolol in the emergency department. Chest x-ray will be repeated in the morning. The patient will be continued on IV diuresis. November 07: I assumed care of the patient today. Patient sitting up in a chair. Breathing a bit better. Significant edema still present. Nose of IV Lasix every 12.. Discussed with patient and at the bedside. Entresto was started by cardiology November 08: Sitting which chair. Short of breath but better. Significant edema still present. Negative fluid balance. Continue IV Lasix. Discussed with patient and . 11/09/2023: Patient has been negative fluid balance. Swished over by cardiology to oral Lasix. Add oral hydrochlorothiazide for 3 doses. Aldactone added. Discussed 11/10/2023: Eating better. Patient on Entresto and Aldactone. farxiga added today by cardiology. Over 8 L in negative fluid plan Active Medications Acetaminophen (Acetaminophen Tab 325 Mg Tab) 650 mg PO Q6HR PRN PRN Reason: Mild Pain or Fever > 100.5 Alprazolam (Alprazolam 0.25 Mg Tab) 0.25 mg PO BID PRN PRN Reason: Anxiety Last Admin: 11/09/23 23:11 Dose: 0.25 mg Apixaban (Apixaban 5 Mg Tab) 5 mg PO BID [facility]; Protocol Last Admin: 11/10/23 09:26 Dose: 5 mg Atorvastatin Calcium (Atorvastatin 10 Mg Tab) 10 mg PO DAILY [facility] Last Admin: 11/10/23 09:25 Dose: 10 mg Dapagliflozin (Dapagliflozin Propanediol 10 Mg Tablet) 10 mg PO DAILY [facility] Last Admin: 11/10/23 16:42 Dose: 10 mg Diphenhydramine HCl (Diphenhydramine 25 Mg Cap) 25 mg PO HS PRN PRN Reason: Insomnia Last Admin: 11/06/23 23:19 Dose: 25 mg Furosemide (Furosemide 20 Mg Tab) 60 mg PO BID@0900,1600 [facility] Last Admin: 11/10/23 16:42 Dose: 60 mg Metformin HCl (Metformin 500 Mg Tab) 500 mg PO BID-W/MEALS [facility] Last Admin: 11/10/23 16:42 Dose: 500 mg Metoprolol Succinate (Metoprolol Succinate (Er) 25 Mg Tab.Er.24h) 75 mg PO BID [facility] Last Admin: 11/10/23 09:26 Dose: 75 mg Naloxone HCl (Naloxone 0.4 Mg/Ml 1 Ml Vial) 0.2 mg IV Q2M PRN PRN Reason: Opioid Reversal Sacubitril/Valsartan (Sacubitril/Valsartan 24 Mg-26 Mg Tablet) 1 each PO BID [facility] Last Admin: 11/10/23 09:25 Dose: 1 each Spironolactone (Spironolactone 25 Mg Tab) 25 mg PO DAILY [facility] Last Admin: 11/10/23 09:25 Dose: 25 mg Past medical history to include: Atrial fibrillation, diabetes, hypertension, hyperlipidemia, OA, COPD Social history: Lives with his . No smoking or alcohol. Uses a walker. Physical examination: VITAL SIGNS: 97.3, 88, 16, 105/68, 94% room air GENERAL: BMI 41.2, up in a recliner. EYES: Pupils equal. Conjunctiva normal. HEENT: External appearance of nose and ears normal, oral cavity grossly normal. NECK: JVD raised; masses not palpable. HEART: First and second heart sounds are normal; significant edema improved LUNGS: Respiratory rate normal; left basal fine crackles ABDOMEN: Soft, nontender, liver spleen not palpable, no masses palpable. PSYCH: Alert and oriented x3; mood and affect normal. MUSCULOSKELETAL OA. Past Medical History Past Medical History: Atrial Fibrillation, Heart Failure, Diabetes Mellitus, Hyperlipidemia, Hypertension History of Any Multi-Drug Resistant Organisms: None Reported Past Surgical History: Appendectomy, Joint Replacement Additional Past Surgical History / Comment(s): total left hip Past Anesthesia/Blood Transfusion Reactions: No Reported Reaction Additional Past Anesthesia/Blood Transfusion Reaction / Comment(s): no hx blood transfusion Past Psychological History: Depression Smoking Status: Former smoker Past Alcohol Use History: None Reported Additional Past Alcohol Use History / Comment(s): quit smoking years ago, smoked very short time Past Drug Use History: None Reported - Past Family History Mother Family Medical History: No Reported History Sister(s) Family Medical History: Cancer Additional Family Medical History / Comment(s): breast,eye INVESTIGATIONS, reviewed in the clinical context: November 07: White count 9.1 hemoglobin 11.8 platelets 249 potassium 4.1 BUN 26 creatinine 1.07 2-D echocardiogram: EF 30-35%. Hypokinesis of the anteroapical anteroseptal and anterolateral wall, moderate pulmonary hypertension, severe right ventricle dilatation Assessment: 1. Acute exacerbation CHF from systolic and diastolic dysfunction, EF 30-35%, improving Lasix 60 mg by mouth twice a day; strict BLADE's, daily weights, renal function and electrolytes -- Low salt and fluid restricted 1500 cc diet Cardiology following Entresto , Aldactone Sigrid added today 2. Elevated troponin; secondary to CHF. No ACS 3. Mild leukocytosis; likely reactive ; no signs of infection; we'll monitor CBC 4. Mild AK I; BUN is elevated; creatinine remains within normal limit - We will monitor strict BLADE's, daily weights, renal function and electrolytes; avoid nephrotoxins and hypotension 5. Persistent Atrial fibrillation with RVR on presentation; metoprolol; eliquis 5 mg by mouth twice a day 6. Essential Hypertension; Toprol XL 50 mg twice a day 7. Hyperlipidemia; Lipitor 10 mg daily 8. Diabetes mellitus; Continue monitor Accu-Cheks with insulin sliding scale Glucophage -Primary osteoarthritis Pain medications as needed -COPD Albuterol when necessary -BPH -Morbid obesity BMI 41.3 -DO NOT RESUSCITATE Discussed with patient and . Sigrid added today. Plan for discharge tomorrow.
[2023-11-10] MEDS: ALPRAZolam 0.25 MG TAB PO PRN (23:48)
[2023-11-11 05:50] LABS: Glucose,Whole Blood 162 mg/dL (70-110)
[2023-11-11] MEDS: metFORMIN 500 MG TAB PO SCH (06:38)
[2023-11-11 08:19] LABS: African American GFR (CKD) 71 (>60 ml/min/1.73 sqM); Anion Gap 12 mmol/L; Blood Urea Nitrogen 23 mg/dL (9-20); Calcium 9.9 mg/dL (8.4-10.2); Carbon Dioxide 34 mmol/L (22-30); Chloride 89 mmol/L (98-107); Glucose 159 mg/dL (74-99); Non-African American GFR(CKD) 62 (>60 ml/min/1.73 sqM); Potassium 3.9 mmol/L (3.5-5.1); Sodium 135 mmol/L (137-145)
[2023-11-11] MEDS: METOPROLOL SUCCINATE (ER) 25 MG TAB.ER.24H PO SCH (08:24)
[2023-11-11] MEDS: APIXABAN 5 MG TAB PO SCH (08:24)
[2023-11-11] MEDS: DAPAGLIFLOZIN PROPANEDIOL 10 MG TABLET PO SCH (08:24)
[2023-11-11] MEDS: FUROSEMIDE 20 MG TAB PO SCH (08:25)
[2023-11-11] MEDS: ATORVASTATIN 10 MG TAB PO SCH (08:25)
[2023-11-11 10:04] VITALS: RESP 20; TEMP 97.8
[2023-11-11 11:28] VITALS: BP 118/87; PULSE 91
[2023-11-11] MEDS: SACUBITRIL/VALSARTAN 24 MG-26 MG TABLET PO SCH (11:40)
[2023-11-11] MEDS: SPIRONOLACTONE 25 MG TAB PO SCH (11:40)
[2023-11-11 11:49] LABS: Glucose,Whole Blood 112 mg/dL (70-110)
--- NOTE | 2023-11-11 11:50 | P.PN ---
Subjective HISTORY OF PRESENT ILLNESS: 11/10/23 A pleasant 78-year-old gentleman who follows in the office with Dr. Asher. Initially presented to [facility] with worsening shortness of breath. He has a history of persistent atrial fibrillation, nonischemic cardiomyopathy, hypertension, hyperlipidemia, type 2 diabetes. Echocardiogram revealed EF 30- 35%. Medication optimization as an outpatient has been an issue in the past due to cost. This admission he's been initiated on spironolactone as well as Entresto. His breathing is feeling better, back to its baseline. Continues to have lower extremity edema. Labs from this morning are pending. 11/11/2023 Patient examined this morning. Patient is sitting up in the chair. Patient denies chest pain or pressure. He denies shortness of breath. He remains on oral Lasix 60 mg twice a day. Creatinine is stable at 1.13. Telemetry reveals atrial fibrillation with controlled ventricular rate. Blood pressure is stable. PHYSICAL EXAM: VITAL SIGNS: Reviewed. GENERAL: Well-developed in no acute distress. NECK: Supple. No JVD or thyromegaly LUNGS: Respirations even and unlabored. Lungs essentially clear to auscultation bilaterally. HEART: Irregular rate and rhythm. S1 and S2 heard. EXTREMITIES: Normal range of motion. No clubbing or cyanosis. Peripheral pulses intact. Bilateral lower extremity edema noted. Darwin wraps to bilateral lower extremities. ASSESSMENT: #1 acute on chronic heart failure with reduced ejection fraction #2 nonischemic cardiomyopathy #3 persistent atrial fibrillation, rate controlled and anticoagulated #4 hypertension #5 hyperlipidemia #6 type 2 diabetes PLAN: Continue current cardiac medications Patient is currently stable from a cardiac perspective Per nursing, patient was given a one-month supply of Entresto. However, he cannot afford copay for Farxiga. Patient to follow-up with Dr. Asher post discharge Nurse practitioner note has been reviewed by physician. Signing provider agrees with the documented findings, assessment, and plan of care. Objective - Vital Signs Vital signs: Vital Signs Temp 97.8 F 11/11/23 11:22 Pulse 91 11/11/23 11:22 Resp 20 11/11/23 11:22 BP 118/87 11/11/23 11:22 Pulse Ox 95 11/11/23 11:22 FiO2 32 11/06/23 13:40 Intake & Output 11/10/23 11/11/23 11/11/23 18:59 06:59 18:59 Intake Total 716 0 Output Total 2099 2099 999 Balance -1384 Weight 130 kg 126.6 kg Intake: Oral 716 0 Output: Urine 2099 2099 999 Other: Voiding Method External Catheter External Catheter # Bowel Movements 1 - Labs CBC & Chem 7: 11/09/23 08:37 11/11/23 07:32 Labs: Abnormal Lab Results - Last 24 Hours (Table) 11/10/23 11/10/23 11/11/23 Range/Units 16:32 19:49 05:49 Sodium (137-145) mmol/L Chloride (98-107) mmol/L Carbon Dioxide (22-30) mmol/L BUN (9-20) mg/dL Glucose (74-99) mg/dL POC Glucose (mg/dL) 159 H 125 H 162 H (70-110) mg/dL 11/11/23 Range/Units 07:32 Sodium 135 L (137-145) mmol/L Chloride 89 L (98-107) mmol/L Carbon Dioxide 34 H (22-30) mmol/L BUN 23 H (9-20) mg/dL Glucose 159 H (74-99) mg/dL POC Glucose (mg/dL) (70-110) mg/dL
--- NOTE | 2023-11-11 12:57 | P.PN ---
Subjective Progress Note Date: 11/11/23 78-year-old male who was seen in the emergency department, on November 08, complaining of shortness of breath. He apparently was brought into the ER, by EMS, and came from [facility], [place], with fluid overload, CHF, and elevated BNP, and significant lower extremity edema. According to the patient, confirmed by the patient's , he was not taking his Lasix. He doesn't like to take his Lasix, when he is away from home. Anyway, he is seen today in room 365. The patient's pro-calcitonin level was 0.18. He continues on oxygen at 4 L. No IV fluids. His N-terminal proBNP was elevated. His troponins were elevated. The patient does smoke heavily in the past. He does not use oxygen at home. White count 9.1, hemoglobin 11.8, hematocrit 37.4, and platelet count was normal. Sodium 135, potassium 4.1, chlorides 95, CO2 31, BUN 26, and creatinine 1.07. Troponins were 0.139, and 0.148. N-terminal proBNP was 2190. Chest x-ray showed cardiomegaly, with interstitial edema and pulmonary vascular congestion. The patient is currently on albuterol treatments, Lasix, and his regular cardiac medications. The patient is feeling better, that being admitted. Progress note dated 11/08/2023. 78-year-old male seen in consultation yesterday. He came into the emergency department complaining of shortness of breath, weight gain, and lower extremity edema. The patient was found to have congestive heart failure. He is feeling better today. He seen in room 365. He's not receiving any IV fluids. He is on 2 L by nasal cannula. Current labs include a white count 8.2, hemoglobin 11.7, hematocrit 36.3, and a platelet count of 265,000. Sodium 136, potassium 4.3, chloride 96, CO2 30, BUN 22, and creatinine 0.82. Progress note dated 11/09/2023. The patient is seen today in room 365. The patient continues on oxygen at 2 L. No IV fluids. His lower extremity edema is improved, and his legs are wrapped with bandages. He's feeling much improved. Current labs white count 6.5, hemoglobin 13.1, hematocrit 41.1, and a normal platelet count. Sodium 138, potassium 4.1, chlorides 95, CO2 29, anion gap 14, BUN 21, creatinine 0.86. The closest to 29. Calcium 9.2. This evaluation of 11/10/2023, the patient is stable. The patient is currently on room air oxygen. Denies having any significant respiratory distress. He also has some edema lower extremities bilaterally. The patient is currently on diuretics and the patient is on a, the patient Lasix and Aldactone. Lower extremity edema is improving. He has systolic heart failure with an ejection fraction of 30-35% along with severe RV dilatation. He was started on entresto by cardiology. Lasix is being admitted is a 60 mg by mouth twice a day. He was also started on Farxiga. BUN is at 21 with a creatinine of 0.8. Sodium level is at 136. On today's evaluation of 11/11/2023, the patient remains on room air oxygen. Cardiac medications are unchanged. The patient remains on a combination of diuretics utilizing a dose of 60 mg of Lasix by mouth twice a day and Aldactone 25 mg by mouth daily. Continues to have edema lower extremities bilaterally. Producing adequate amount of urine output. BUN is at 23 with a creatinine of 1.1. Sodium levels of 135 with a potassium level of 3.9. No hypotension. Objective - Vital Signs Vital signs: Vital Signs Temp 97.8 F 11/11/23 11:22 Pulse 91 11/11/23 11:22 Resp 20 11/11/23 11:22 BP 118/87 11/11/23 11:22 Pulse Ox 95 11/11/23 11:22 FiO2 32 11/06/23 13:40 Intake & Output 11/10/23 11/11/23 11/11/23 18:59 06:59 18:59 Intake Total 716 0 Output Total 2099 2099 999 Balance -1383 Weight 130 kg 126.6 kg Intake: Oral 716 0 Output: Urine 2099 2099 999 Other: Voiding Method External Catheter External Catheter # Bowel Movements 1 - Exam No acute distress, oriented 3. Currently on room air oxygen Room air saturation is 94%. No mary ann respiratory distress. No use of accessory muscles, or audible wheezing. HEENT examination is grossly unremarkable. Mucous membranes are moist. No oral lesions. Neck supple. Full range of motion. No adenopathy thyromegaly or neck vein distention. Cardiovascular examination reveals an irregular rhythm and rate. S1-S2 normal. No S3 or S4. No discernible murmur noted. Heart sounds are distant. Lungs reveal bibasilar crackles. No wheezes. No rhonchi. Breath sounds are equal bilaterally. Abdomen soft bowel sounds are heard. No masses or tenderness. Extremities are intact. No cyanosis or clubbing. Slight edema is noted. Bilateral lower extremities are wrapped with an SINDY bandage. Skin is without rash or lesion. Neurologic examination is brief but nonfocal. - Labs CBC & Chem 7: 11/09/23 08:37 11/11/23 07:32 Labs: Abnormal Lab Results - Last 24 Hours (Table) 11/10/23 11/10/23 11/10/23 Range/Units 11:39 16:32 19:49 Sodium (137-145) mmol/L Chloride (98-107) mmol/L Carbon Dioxide (22-30) mmol/L BUN (9-20) mg/dL Glucose (74-99) mg/dL POC Glucose (mg/dL) 150 H 159 H 125 H (70-110) mg/dL 11/11/23 11/11/23 Range/Units 05:49 07:32 Sodium 135 L (137-145) mmol/L Chloride 89 L (98-107) mmol/L Carbon Dioxide 34 H (22-30) mmol/L BUN 23 H (9-20) mg/dL Glucose 159 H (74-99) mg/dL POC Glucose (mg/dL) 162 H (70-110) mg/dL Assessment and Plan Plan: Acute hypoxic respiratory failure secondary to CHF, currently on room air oxygen Acute shortness of breath, secondary to chronic atrial fibrillation, and diastolic/systolic CHF. Systolic heart failure with an ejection fraction of 30-35% and severe RV dilatation. The patient is known to have History of nonischemic cardiomyopathy. Lower extremity edema is improving History of hyperlipidemia. History of diabetes mellitus. History of hypertension. History of depression. Prior history of tobacco use. Plan: Clinically stable and continues to improve Continues to have lower extremity edema Pulmonary status is stable Monitor creatinine continue optimizing CHF and the patient is currently on a combination of Entresto, farxiga , Lasix and Aldactone Currently on room air oxygen Lower extremity edema is improving Overall respiratory status is stable and we'll continue to follow.
--- NOTE | 2023-11-11 19:16 | P.DS ---
Providers Date of admission: 11/05/23 18:17 Expected date of discharge: 11/11/23 Attending physician: José Antonio Packer Consults: 11/05/23 18:17 Consult Physician Routine Consulting Provider: Chapincito Asher Consult Reason/Comments: CHF Do you want consulting provider notified?: Yes 11/06/23 13:43 Consult Physician Routine Consulting Provider: Doug Sykes Consult Reason/Comments: CHF Do you want consulting provider notified?: Yes Primary care physician: [facility] Course: Chief Complaint: Shortness of breath 78 yo male presenting as transfer from outside hospital with acute CHF and possible concurrent pneumonia. The patient had been transferred from [facility] with chief complaint of dyspnea, found to be fluid overloaded with CHF on chest x-ray, elevated BNP, and significant peripheral edema. He was given Lasix and placed on BiPAP prior to transfer. There is also some concern for concurrent pneumonia and the patient was given azithromycin and ceftriaxone prior to transfer. His vital panel was negative. He denies central chest pain. Does report increased bilateral lower extremity edema and worsening dyspnea. H e is on Eliquis with history of atrial fibrillation. Atrial fibrillation with RVR rate of 116 QRS duration 108, QTC 401 BNP and troponin are elevated, troponin 0.1 this level will be trended. The pat ient is started on heparin, Lasix, and metoprolol in the emergency department. Chest x-ray will be repeated in the morning. The patient will be continued on IV diuresis. November 07: I assumed care of the patient today. Patient sitting up in a chair. Breathing a bit better. Significant edema still present. Nose of IV Lasix every 12.. Discussed with patient and at the bedside. Entresto was started by cardiology November 08: Sitting which chair. Short of breath but better. Significant edema still present. Negative fluid balance. Continue IV Lasix. Discussed with patient and . 11/09/2023: Patient has been negative fluid balance. Swished over by cardiology to oral Lasix. Add oral hydrochlorothiazide for 3 doses. Aldactone added. Discussed 11/10/2023: Eating better. Patient on Entresto and Aldactone. farxiga added today by cardiology. Over 8 L in negative fluid plan 11/11/2023: Doing well. Eating much improved. Discharge planning discussed with the patient and . About 12 L in negative fluid balance. Continue with Darwin wraps. Entresto, Farxiga, Aldactone added. Patient will follow-up with Dr. Asher. Questions answered Discussion and discharge planning more than 35 minutes Past medical history to include: Atrial fibrillation, diabetes, hypertension, hyperlipidemia, OA, COPD Social history: Lives with his . No smoking or alcohol. Uses a walker. Physical examination: VITAL SIGNS: Exam 0.8, 91, 20, 118/87, 95% room air GENERAL: He up, comfortable. EYES: Pupils equal. Conjunctiva normal. HEENT: External appearance of nose and ears normal, oral cavity grossly normal. NECK: JVD raised; masses not palpable. HEART: First and second heart sounds are normal; idecrease edema LUNGS: Respiratory rate normal; left basal fine crackles ABDOMEN: Soft, nontender, liver spleen not palpable, no masses palpable. PSYCH: Alert and oriented x3; mood and affect normal. MUSCULOSKELETAL OA. Past Medical History Past Medical History: Atrial Fibrillation, Heart Failure, Diabetes Mellitus, Hyperlipidemia, Hypertension History of Any Multi-Drug Resistant Organisms: None Reported Past Surgical History: Appendectomy, Joint Replacement Additional Past Surgical History / Comment(s): total left hip Past Anesthesia/Blood Transfusion Reactions: No Reported Reaction Additional Past Anesthesia/Blood Transfusion Reaction / Comment(s): no hx blood transfusion Past Psychological History: Depression Smoking Status: Former smoker Past Alcohol Use History: None Reported Additional Past Alcohol Use History / Comment(s): quit smoking years ago, smoked very short time Past Drug Use History: None Reported - Past Family History Mother Family Medical History: No Reported History Sister(s) Family Medical History: Cancer Additional Family Medical History / Comment(s): breast,eye INVESTIGATIONS, reviewed in the clinical context: November 11: Potassium 3.9 creatinine 1.13 November 07: White count 9.1 hemoglobin 11.8 platelets 249 potassium 4.1 BUN 26 creatinine 1.07 2-D echocardiogram: EF 30-35%. Hypokinesis of the anteroapical anteroseptal and anterolateral wall, moderate pulmonary hypertension, severe right ventricle dilatation Assessment: 1. Acute exacerbation CHF from systolic and diastolic dysfunction, EF 30-35%, Lasix 60 mg by mouth twice a day; strict BLADE's, daily weights, renal function and electrolytes -- Low salt and fluid restricted 1800 cc diet Follow-up for Dr. Samman Entresto , Aldactone Farxiga 2. Elevated troponin; secondary to CHF. No ACS 3. Mild leukocytosis; likely reactive ; no signs of infection; we'll monitor CBC 4. Mild AK I; BUN is elevated; creatinine remains within normal limit - We will monitor strict BLADE's, daily weights, renal function and electrolytes; avoid nephrotoxins and hypotension 5. Persistent Atrial fibrillation with RVR on presentation; metoprolol; eliquis 5 mg by mouth twice a day 6. Essential Hypertension; Toprol XL 75 mg twice a day 7. Hyperlipidemia; Lipitor 10 mg daily 8. Diabetes mellitus; Continue monitor Accu-Cheks with insulin sliding scale Glucophage -Primary osteoarthritis Pain medications as needed -COPD Albuterol when necessary -BPH -Morbid obesity BMI 41.3 -DO NOT RESUSCITATE Disposition: Home Plan - Discharge Summary Discharge Rx Participant: No New Discharge Prescriptions: New Spironolactone [Aldactone] 25 mg PO DAILY #30 tab Sacubitril/Valsartan [Entresto 24 mg-26 mg Tablet] 1 each PO BID #60 tab Dapagliflozin Propanediol [Farxiga] 10 mg PO DAILY #30 tab Metoprolol Succinate (ER) [Toprol XL] 75 mg PO BID #60 tab Continue Potassium Chloride [Klor-Con 20] 20 meq PO DAILY metFORMIN HCL [Glucophage] 1,000 mg PO BID Atorvastatin Calcium [Lipitor] 10 mg PO DAILY Multivitamins, Thera [Multivitamin (formulary)] 1 tab PO DAILY Albuterol Sulfate [Albuterol Sulfate Hfa] 1 - 2 puff PO RT-TID PRN PRN Reason: Shortness Of Breath diphenhydrAMINE HCL [Children's Benadryl Allergy] 50 mg PO Q6H PRN PRN Reason: agitation/anxiety Apixaban [Eliquis] 5 mg PO BID Furosemide [Lasix] 40 mg PO BID@0900,1600 #60 tab ALPRAZolam [Xanax] 0.25 mg PO BID PRN PRN Reason: Anxiety Discontinued Metoprolol Tartrate [Lopressor] 50 mg PO BID amLODIPine [Norvasc] 5 mg PO DAILY Losartan Potassium 100 mg PO DAILY Discharge Medication List Atorvastatin Calcium [Lipitor] 10 mg PO DAILY 11/18/20 [History] Multivitamins, Thera [Multivitamin (formulary)] 1 tab PO DAILY 11/18/20 [History] Potassium Chloride [Klor-Con 20] 20 meq PO DAILY 11/18/20 [History] metFORMIN HCL [Glucophage] 1,000 mg PO BID 11/18/20 [History] Apixaban [Eliquis] 5 mg PO BID 01/21/23 [History] Albuterol Sulfate [Albuterol Sulfate Hfa] 1 - 2 puff PO RT-TID PRN 02/23/23 [History] Furosemide [Lasix] 40 mg PO BID@0900,1600 #60 tab 02/27/23 [Rx] ALPRAZolam [Xanax] 0.25 mg PO BID PRN 11/05/23 [History] diphenhydrAMINE HCL [Children's Benadryl Allergy] 50 mg PO Q6H PRN 11/05/23 [History] Dapagliflozin Propanediol [Farxiga] 10 mg PO DAILY #30 tab 11/11/23 [Rx] Metoprolol Succinate (ER) [Toprol XL] 75 mg PO BID #60 tab 11/11/23 [Rx] Sacubitril/Valsartan [Entresto 24 mg-26 mg Tablet] 1 each PO BID #60 tab 11/11/23 [Rx] Spironolactone [Aldactone] 25 mg PO DAILY #30 tab 11/11/23 [Rx] Follow up Appointment(s)/Referral(s): Chapincito Asher MD [STAFF PHYSICIAN] - 11/23/23 10:15 am Denny Truong MD [Primary Care Provider] - 1-2 days (IN [place], OFFICE WILL CONTACT YOU FOLLOW UP APPOINTMENT DATE AND TIME) Patient Instructions/Handouts: Heart Failure (DC), Fluid Restriction (DC) Activity/Diet/Wound Care/Special Instructions: fluid restrict 1800 cc/day Discharge Disposition: HOME SELF-CARE
--- NOTE | 2023-11-12 17:46 | CDI ---
Documentation Clarification Form Date: 11/12/2023 05:35:20 PM From: Amanda Glover Phone: Admit Date: 11/05/2023 06:17:00 PM Patient Name: Harvey Acosta Visit Number: [id number] Discharge Date: 11/11/2023 01:30:00 PM ATTENTION: The Clinical Documentation Specialists (CDI) and [facility] Coding Staff appreciate your assistance in clarifying documentation. Please respond to the clarification below the line at the bottom and electronically sign. The CDI & [facility] Coding staff will review the response and follow-up if needed. Please note: Queries are made part of the Legal Health Record. If you have any questions, please contact the author of this message via ITS. Dr. José Antonio Packer Diabetes is documented ED Note. Additional specificity regarding the diabetes diagnosis is requested. History/Risk Factors: 78yo M, AHRF, ACCHF, HTN, NICM, HLD, MICHELLE, PHTN, former smoker Clinical Indicators: Glucose 11/06 125 11/13 229 Treatment: Continue monitor Accu-Cheks with insulin sliding scale Home Glucophage 1,000 mg PO BID Please clarify the type of diabetes, if known: [ + ] Type 2 diabetes mellitus with hyperglycemia [ ] Type 2 diabetes mellitus no additional complications [ ] Other, please specify [ ] Unable to Determine (Template Last Revised: January 2021) MTDD
== END 2023-11-11 13:30 | disposition home or self-care (01) | DRG 280 ==
LOC: EC 18:02 → 3SCARD 18:17
PROVIDERS: ADMIT Hospitalist; ATTEND Hospitalist
PROC: 5A09357 Assistance with Respiratory Ventilation, Less than 24 Consecutive Hours, Continuous Positive Airway Pressure (ICD-10-PCS; principal; 2023-11-05)
DX: I11.0 Hypertensive heart disease with heart failure (principal); I50.43 Acute on chronic combined systolic (congestive) and diastolic (congestive) heart failure; I21.A1 Myocardial infarction type 2; J96.01 Acute respiratory failure with hypoxia; N17.9 Acute kidney failure, unspecified; I48.19 Other persistent atrial fibrillation; Z68.41 Body mass index [BMI] 40.0-44.9, adult; I27.20 Pulmonary hypertension, unspecified; E66.01 Morbid (severe) obesity due to excess calories; J44.9 Chronic obstructive pulmonary disease, unspecified; I42.8 Other cardiomyopathies; E11.65 Type 2 diabetes mellitus with hyperglycemia; Z66 Do not resuscitate; D72.828 Other elevated white blood cell count; F32.A Depression, unspecified; I49.3 Ventricular premature depolarization; I89.0 Lymphedema, not elsewhere classified; M19.91 Primary osteoarthritis, unspecified site; N40.0 Benign prostatic hyperplasia without lower urinary tract symptoms; E78.5 Hyperlipidemia, unspecified; Z96.643 Presence of artificial hip joint, bilateral; Z79.01 Long term (current) use of anticoagulants; Z87.891 Personal history of nicotine dependence; Z79.84 Long term (current) use of oral hypoglycemic drugs; Z79.899 Other long term (current) drug therapy; Z88.8 Allergy status to other drugs, medicaments and biological substances
CPT/HCPCS: 36415; 71045; 80048; 80053; 83735; 83880; 84145; 84484; 85025; 85610; 85730; 93005; 93306; 94640; 94660; 94760; 96365; 96366; 96375; 96376; 99285

== ENCOUNTER 2024-03-30 08:23 | Day surgery (SDC) | payer MEDICARE, OTHER ==
[~2024-03-30 08:23] MED LIST changes: -ACETAMINOPHEN TAB 500 MG TAB PO PRN; +ALPRAZolam 0.25 MG TAB PO PRN; +ATORVASTATIN 80 MG TAB PO STA; -DEXAMETHASONE SOD PHOSPHATE 4 MG/ML 1 ML VIAL IV ONE; -GABAPENTIN 300 MG CAP PO PRN; +HEPARIN SODIUM,PORCINE (1 ML) 2,500 UNIT in SODIUM CHLORIDE 0.9% 250 ML IRRIGATION PRN; +HEPARIN SODIUM,PORCINE 10,000 UNIT in SODIUM CHLORIDE 0.9% 1,000 ML IRRIGATION PRN; -LIDOCAINE 1% (10MG/ML) FOR IV START INTRADERMA PRN; -MELOXICAM 7.5 MG TAB PO PRN; +NITROGLYCERIN SL TABS 0.4 MG TAB SUBLINGUAL PRN; -ONDANSETRON 4 MG/2 ML VIAL IVP ONE; +SODIUM CHLORIDE 0.9% 1,000 ML in EMPTY BAG 1 BAG IV SCH; -TRANEXAMIC ACID IN NACL,ISO-OS 1,000 MG in SALINE 1 100ML.BAG IVPB PRN; -ceFAZolin 3 GM in SODIUM CHLORIDE 0.9% 100 ML IVPB PRN
[2024-03-30] MEDS: SODIUM CHLORIDE 0.9% 1,000 ML IV ONE (08:51)
[2024-03-30] MEDS: ALPRAZolam 0.5 MG TAB PO PRN (09:01)
[2024-03-30] MEDS: ASPIRIN 325 MG TAB PO STA (09:01)
[2024-03-30] MEDS: SACUBITRIL/VALSARTAN 24 MG-26 MG TABLET PO SCH (09:34)
[2024-03-30] MEDS: SPIRONOLACTONE 25 MG TAB PO STA (09:34)
[2024-03-30] MEDS: carvediloL 12.5 MG TAB PO STA (09:34)
[2024-03-30 09:35] LABS: Glucose,Whole Blood 133 mg/dL (70-110)
[2024-03-30] MEDS ORDERED: LIDOCAINE 1% INJ 10MG/ML (20 ML MDV) ONE (09:47)
[2024-03-30] MEDS ORDERED: fentaNYL (PF) 50 MCG/ML 2 ML AMP ONE (09:48)
[2024-03-30] MEDS ORDERED: VERAPAMIL 2.5 MG/ML 2 ML AMP ONE (09:48)
[2024-03-30] MEDS ORDERED: HEPARIN SODIUM 1,000 UN/ML (10ML VL) ONE (09:48)
[2024-03-30 09:53] VITALS: TEMP 98.4
[2024-03-30] MEDS: fentaNYL (PF) 50 MCG/1 ML VIAL IVP ONE (10:16)
[2024-03-30] MEDS: LIDOCAINE 2% (PF) 20 MG/ML 5 ML VIAL SQ ONE (10:16)
[2024-03-30] MEDS: VERAPAMIL 2.5 MG/ML 4 ML VIAL INTRAARTER ONE (10:17)
[2024-03-30] MEDS: HEPARIN SODIUM 1,000 UN/ML (10ML VL) IVP ONE (10:21)
[2024-03-30] MEDS: IOPAMIDOL-370 100ML BTL INTRATHECA ONE (10:28)
[2024-03-30] MEDS ORDERED: RX INFO: IV CONTRAST WAS GIVEN 1 EACH MISC MISCELLANE PRN (10:36)
--- NOTE | 2024-03-30 10:43 | P.CARDCATH ---
Date of Procedure: 03/30/24 Description of Procedure: Cardiac Catheterization: The patient is an 79-year-old male with a known history of hypertension, hyperlipidemia and diabetes who had symptoms of dyspnea and recent worsening of his ejection fraction. Recommendations were made regarding cardiac catheterization, the risks and the complications were discussed with the patient who is in full understanding and agreement. Procedure Description: Patient was brought to laboratory chief in fasting semi-sedated state after receiving Fentanyl and Benadryl achieiving moderate conscious sedated state. Using Xylocaine Anesthesia and modified Seldinger technique, a 6-Amharic sheath was introduced in the right radial artery . Subsequently, selective coronary angiography was performed using a 5-Amharic 3.5 bend Theresa catheter. Multiple views of the coronary artery including hemiaxial views were obtained. The right Theresa catheter was used to cross the aortic valve and LVEDP was calculated. Following that, catheter and sheath were removed. Hemostasis was obtained with deployment of vascular band . There was no immediate complication. Patient was returned to room in stable condition. Of note, the patient received a total of 5000 units of intravenous heparin as well as intra-arterial verapamil. Findings: Left main: This is a large size vessel, bifurcating into LAD and left circumflex, left main has no obstructive disease. LAD: This is a large size vessel, reaching to the apex, giving rise to a moderately sized diagonal branch in the proximal segment. The LAD and its branches have no obstructive disease. Left circumflex: This is a large dominant vessel, giving rise to 2 obtuse marginal branch the second 1 is large in caliber. The left circumflex and its branches have no obstructive disease. RCA: This is a large dominant vessel, bifurcating into PDA and PLV, the RCA and its branches have no obstructive disease. Left Ventriculogram: Not performed Hemodynamics: There was no gradient across the aortic valve, LVEDP was 12-15 mmHg Conclusion: 1. Normal coronary arteries 2. Right dominance 3. Normal LVEDP Recommendations: The patient will continue on present medical therapy. There is no evidence of ischemia to explain his recent depending on his progress further recommendations will be made. The findings and the recommendations were discussed with the patient an cardiomyopathy.d the family and they were in full understanding and agreement. Duration of sedation is 10 minutes.
[2024-03-30] MEDS ORDERED: SODIUM CHLORIDE 0.9% 1,000 ML IV SCH (10:45)
[2024-03-30 12:46] VITALS: RESP 16
[2024-03-30] MEDS: SODIUM CHLORIDE 0.9% 500 ML 500 ML IV ONE (13:00)
[2024-03-30 14:31] VITALS: BP 101/57
[2024-03-30 15:23] VITALS: PULSE 85
[2024-03-30] MEDS ORDERED: carvediloL 12.5 MG TAB PO SCH (17:30)
[2024-03-30] MEDS ORDERED: SACUBITRIL/VALSARTAN 24 MG-26 MG TABLET PO SCH (21:00)
[2024-03-31] MEDS ORDERED: ATORVASTATIN 10 MG TAB PO SCH (09:00)
== END 2024-03-30 14:57 | disposition home or self-care (01) ==
LOC: CATHCVL 08:23
PROVIDERS: ATTEND Internal Medicine Interventional Cardiology
DX: I25.10 Atherosclerotic heart disease of native coronary artery without angina pectoris (principal); I10 Essential (primary) hypertension; E78.5 Hyperlipidemia, unspecified; Z79.899 Other long term (current) drug therapy
CPT/HCPCS: 93458; C1769 ×2; C1894; J1644; Q9967; J2001; J3010